=== PATIENT | female | born 1955 | race Caucasian/White ===

== ENCOUNTER 2019-06-03 22:46 | Inpatient (IN) | payer MEDICARE ==
[2019-06-03 23:48] LABS: #Basophils 0.1 thou/uL (0.0-0.2); #Lymphocytes 1.8 thou/uL (1.20-3.40); #Monocytes 0.9 thou/uL (0.11-0.59); #Neutrophils 8.8 thou/uL (1.40-6.50); %Basophils 0.6 % (0.0-1.0); %Eosinophils 0.2 % (0.0-10.0); %Lymphocytes 15.6 % (21.0-51.0); %Monocytes 7.5 % (0.0-10.0); Hemoglobin 14.4 g/dL (12.0-16.0); Mean Corpuscular HGB CONC 32.5 g/dL (32.0-36.0); Mean Corpuscular Hemoglobin 30.1 pg (27.0-31.0); Mean Corpuscular Volume 92.4 fL (78.0-98.0); Mean Platelet Volume 7.6 fL (7.4-10.4); Platelet Count 281 thou/uL (130-400); RBC Distribution Width 15.1 % (11.5-14.5); Red Blood Cell (RBC) Count 4.78 mill/uL (4.20-5.40); White Blood Cell (WBC) Count 11.6 thou/uL (4.8-10.8)
[2019-06-04 00:09] LABS: ALT (SGPT) 61 U/L (8-55); AST (SGOT) 43 U/L (5-34); Albumin 4.1 g/dL (3.4-4.8); Alkaline Phosphatase 62 U/L (40-110); Anion Gap 20 mmol/L (10-20); BUN (Urea Nitrogen) 16 mg/dL (9.8-20.1); Bilirubin, Total 1.1 mg/dL (0.2-1.2); Calc. Creatinine Clearance 0 mL/min (70-130); Calcium 10.3 mg/dL (7.8-10.44); Carbon Dioxide 25 mmol/L (23-31); Chloride 100 mmol/L (98-107); Estimated GFR-MDRD 57; Globulin 2.9 g/dL (2.4-3.5); Glucose 166 mg/dL (80-115); Potassium 4.7 mmol/L (3.5-5.1); Sodium 140 mmol/L (136-145)
[2019-06-04] MEDS ORDERED: Ondansetron PF 4 MG/2 ML Vial ONE (00:14)
--- NOTE | 2019-06-04 00:26 | RAD ---
RADIOGRAPH CHEST 1 VIEW: DATE: 06/03/2019 TIME: 11:50 PM HISTORY: 64-year-old female with dyspnea COMPARISON: 07/15/2009 FINDINGS: New finding of cardiomegaly. New finding of widening of mediastinum. New finding of focal small dense opacity at left upper lobe. New finding of prominent interstitial markings bilaterally, especially at bases. New finding of blunting of right lateral costophrenic angle. IMPRESSION: 1) evidence for mild congestive heart failure or mild fluid volume overload: Small right pleural effu lynnette and probable pulmonary interstitial edema. 2) focal dense opacity at left upper lobe: Pneumonia versus pulmonary neoplastic tumor mass. 3) widening of mediastinum.
[2019-06-04] MEDS ORDERED: Cefepime 2 GM VIAL ONE (00:35)
[2019-06-04 01:23] LABS: Bilirubin 1+ (Negative); Blood, Urine Negative (Negative); Clarity Clear (Clear); Glucose, Urine (Dipstick) Normal (Negative); Leukocyte Negative Leu/uL (Negative); Nitrite Negative (Negative); Protein, Urine (Dipstick) 50 mg/dL (Neg-Trace); Urobilinogen 3 mg/dL (Less than 2)
[2019-06-04 01:24] LABS: Bacteria/HPF None Seen HPF (None Seen); RBC/HPF None Seen HPF (0-3); WBC/HPF 0-3 HPF (0-3)
[2019-06-04] MEDS ORDERED: ADMIXTURE FEE IVPB SCH (01:30)
[2019-06-04] MEDS ORDERED: SODIUM CHLORIDE IVPB SCH (01:30)
[2019-06-04] MEDS ORDERED: GENTAMICIN SULFATE IVPB SCH (01:30)
[2019-06-04 02:56] LABS: Lactic Acid 2.6 mmol/L (0.5-2.2)
[2019-06-04 03:49] VITALS: BMI 36.4
[2019-06-04] MEDS ORDERED: Sodium Chloride 0.9% 1,000 ML IV SCH (07:30)
--- NOTE | 2019-06-04 08:45 | CT ---
CT chestwith contrast INDICATIONS:Follow-up chest x-ray. Question lung mass. COMPARISON:Chest film 06/03/2019 FINDINGS: There are small bilateral pleural effusions. Vascular congestion and diffuse interstitial prominence suggesting mild interstitial edema. 1 cm nodule posterior right upper lobe. 2.4 cm nodular density pleural-based left lower lobe. There a re other scattered more subtle nodular opacities. These may be areas of focal atelectasis or infiltrate however pulmonary masses are not excluded. There is diffuse pathologic mediastinal and hilar adenopathy. There is a left hilar mass measuring 3.1 x 3.5 cm. This mass extends along the medial aspect of the m ediastinum superiorly and extends into the left upper lobe to the peripheral pleural surface of the left upper lobe. Some of this density probably represents dense atelectasis associated with this pulm onary mass. Moderate-sized pericardial effusion. Upper abdomen is unremarkable. Soft tissues and chest wall appear unremarkable. Osseous structures are unremarkable. IMPRESSION: 1. Diffuse pathologic mediastinal and hilar adenopathy. 2. Left hilar mass. This mass extends along the superior left mediastinum into the left upper lobe pr ojecting to the pleural surface. There is associated dense lung atelectasis. 3. Moderate pericardial effusion 4. Small bilateral pleural effusions 5. Vascular and interstitial congestion. Scattered pulmonary nodular densities, the largest a pleural -based nodular mass left lower lobe.
[2019-06-04] MEDS ORDERED: Bisacodyl 10 MG SUPP PR PRN (09:30)
[2019-06-04] MEDS ORDERED: Ondansetron PF 4 MG/2 ML Vial IVP PRN (09:30)
[2019-06-04] MEDS ORDERED: Calcium Carbonate 500 MG ChewTAB PO PRN (09:30)
[2019-06-04] MEDS ORDERED: Guaifenesin DM 100-10/5 ML UDCUP PO PRN (09:30)
[2019-06-04] MEDS ORDERED: HYDROcodone/Acetaminophen 5/325 mg Tablet PO PRN (09:30)
[2019-06-04] MEDS ORDERED: Senokot S 8.6-50 MG TAB PO PRN (09:30)
[2019-06-04] MEDS: methylPREDNISolone Sod Succ 40 MG VIAL IVP SCH ×2 (11:28→17:12)
--- NOTE | 2019-06-04 11:41 | HP ---
REASON FOR ADMISSION: COPD exacerbation, cmvsr-tl-gmehevs respiratory failure with hypoxia. HISTORY OF PRESENTING ILLNESS: The patient gives history of having worsening shortness of breath and loss of appetite from the last few days now. Her voice also became hoarse and she was also passing very little urine, which was dark in color. She has had generalized abdominal pain. She has known history of recent diagnosis of xth-msnkh-cykc lung cancer, diagnosed 4 weeks back at [place]. This was diagnosed with CT-guided biopsy. There were plans for further radiation and chemo immunotherapy treatments scheduled in [facility]. The patient in between got hospitalized in [place] 2 weeks back as her saturations dropped down to 60%. She was discharged on the , and the patient came to stay with her son here in the area. She has difficulty expectorating sputum. She has cough. She has known history of COPD and is on home oxygen. She has been on home oxygen for the last 4 weeks after her cancer diagnosis. PAST MEDICAL AND SURGICAL HISTORY: 1. History of recent diagnosis of ljf-ysoon-fvat lung cancer [address]-guided biopsy. The patient has outpatient appointments to have radiation and chemo/immunotherapies in [facility]. 2. COPD from 2009. The patient states she has had a brain scan done with no metastasis seen. She is advised to get PET scan and bone scan, but the patient has to pay 20% upfront due to her insurance and has been unable to get the same for now. 3. She has not had any surgical history. 4. Depression. CURRENT MEDICATIONS: 1. Citalopram 40 mg p.o. daily. 2. Singulair 10 mg p.o. daily. 3. Albuterol nebulizer q.6 h. p.r.n. ALLERGIES: ALLERGIC TO PENICILLIN. PERSONAL HISTORY: Quit smoking 6 years back, prior to which has smoked a pack and a half per day for almost 20 years. Does not abuse alcohol or drugs. She stays with her daughter in [facility]. FAMILY HISTORY: Mother at the age of 78 years, she had diabetes. Father in his 80s from unknown cause. Had a brother who of throat cancer in his 50s, he was a smoker too. CODE STATUS: Do not attempt to resuscitate, this was discussed with the patient at bedside. Power of ballast inspector is her son. REVIEW OF SYSTEMS: CONSTITUTIONAL: Negative for weight loss or gain, ability to conduct usual activities. SKIN: Negative for rash, itching. EYES: Negative for double vision, pain. ENT/MOUTH: Negative for nose bleeding, neck stiffness, pain, tenderness. CARDIOVASCULAR: Negative for palpitations, dyspnea on exertion, orthopnea. RESPIRATORY: Negative for wheezing, hemoptysis, fever or night sweats. GASTROINTESTINAL: Negative for heartburn, nausea, vomiting, constipation, or diarrhea. GENITOURINARY: Negative for urgency, frequency, dysuria, nocturia. MUSCULOSKELETAL: Negative for pain, swelling. NEUROLOGIC/PSYCHIATRIC: Negative for anxiety. ALLERGY/IMMUNOLOGIC: Negative for skin rash, bleeding tendency. PHYSICAL EXAMINATION: GENERAL: The patient is a 64-year-old female, who is currently not in any acute distress. VITAL SIGNS: Blood pressure 166/86, pulse 102 per minute, respiratory rate 28 per minute, temperature 98.4 degrees Fahrenheit, and saturating 91% on 2L nasal cannula. NECK: Supple. No elevated JVD. HEENT: Eyes; extraocular muscles intact. Pupils reacting to light. Oral cavity, mucous membranes are dry. No exudates or congestion. RESPIRATORY: Air entry 1+ bilateral. There are wheezes plus bilateral, rhonchi plus bilateral. CARDIOVASCULAR SYSTEM: S1 and S2 heard. Regular rhythm. No murmur. ABDOMEN: Soft. Bowel sounds heard. No tenderness, rigidity, or guarding. EXTREMITIES: No peripheral edema or calf tenderness. VASCULAR SYSTEM: Peripheral pulses 1+ bilateral. No ischemic ulcerations or gangrene. CENTRAL NERVOUS SYSTEM: No gross focal deficits noted. The patient is alert, awake, and oriented well. PSYCHIATRIC SYSTEM: The patient's mood is euthymic. No hallucinations or delusions. LABORATORY DATA: CT chest with contrast done shows diffuse pathologic mediastinal and hilar adenopathy. There is a left hilar mass, which extends along the superior left mediastinum to the left upper lobe, projecting to the pleural space. There is associated dense lung atelectasis, moderate pericardial effusion, small bilateral pleural effusion, vascular and interstitial congestion. There is scattered pulmonary nodular densities, largest pleural-based nodular mass in the left lower lobe. BUN 16, creatinine 0.9, and serum glucose 166. Lactic acid 2.9. AST and ALT 43 and 61 and alkaline phosphatase 62. Troponin-I x1 negative. BNP 62. Albumin 4.1. White count of 11, hemoglobin and hematocrit 14 and 44, platelet count 281 , and MCV is 92 with 76% neutrophils. EKG done shows normal sinus rhythm at 100 beats per minute. It is low-voltage. CLINICAL IMPRESSION AND PLAN: The patient will be admitted to oncology/medical floor for kayzq-cu-qidbeyy chronic obstructive pulmonary disease exacerbation, ycoqv-kc-rbxdhrn respiratory failure with hypoxia. She has known history of rfw-grfcj-kqwz lung cancer, recently diagnosed, [address]-guided biopsy in [facility]. She is scheduled for PET scan and radiation treatments and follow up with oncologist in [facility]. The patient has mentioned that she would like to follow up with her oncologist and radiation oncologist in [facility]. If she changes her mind, we will obtain consultations here. She will be on Solu-Medrol 40 mg IV q.6 h, empiric doxycycline, DuoNeb q.6 h. She will continue her Celexa and Singulair along with Dulera inhaler. She will also be on Protonix 40 mg p.o. daily. The patient has expressed that she would like to be a do not attempt to resuscitate. This was discussed with the patient at bedside. Her jrxydpod-fq-ktj was at bedside as well. The patient was counseled that she needs to start her radiation and chemotherapy at the earliest to prevent this from further worsening, that is her cancer. Job ID: [id number] MTDD
[2019-06-04] MEDS ORDERED: Iopamidol 370 76% 100 ML VIAL ONE (12:07)
[2019-06-04] MEDS ORDERED: ALPRAZolam 0.5 MG TAB PO PRN (19:19)
[2019-06-04] MEDS: Mometasone/Formoterol 120 PUFF INHALER INH SCH (20:04)
[2019-06-04] MEDS: Citalopram 20 MG TAB PO SCH (20:43)
[2019-06-04] MEDS: Doxycycline 100 MG CAP PO SCH (20:43)
[2019-06-04] MEDS: Montelukast Sodium 10 mg Tablet PO SCH (20:44)
[2019-06-05] MEDS: methylPREDNISolone Sod Succ 40 MG VIAL IVP SCH ×4 (00:03→17:45)
[2019-06-05 04:31] LABS: #Lymphocytes 0.8 thou/uL (1.20-3.40); #Monocytes 0.2 thou/uL (0.11-0.59); %Eosinophils 0.1 % (0.0-10.0); %Lymphocytes 9.7 % (21.0-51.0); %Monocytes 2.8 % (0.0-10.0); %Neutrophils 87.4 % (42.0-75.0); Hemoglobin 13.4 g/dL (12.0-16.0); Mean Corpuscular HGB CONC 32.7 g/dL (32.0-36.0); Mean Corpuscular Hemoglobin 30.3 pg (27.0-31.0); Mean Corpuscular Volume 92.6 fL (78.0-98.0); Mean Platelet Volume 7.6 fL (7.4-10.4); Platelet Count 270 thou/uL (130-400); Red Blood Cell (RBC) Count 4.44 mill/uL (4.20-5.40); White Blood Cell (WBC) Count 8.1 thou/uL (4.8-10.8)
[2019-06-05 04:44] LABS: Anion Gap 14 mmol/L (10-20); BUN (Urea Nitrogen) 16 mg/dL (9.8-20.1); Calc. Creatinine Clearance 80 mL/min (70-130); Calcium 9.9 mg/dL (7.8-10.44); Carbon Dioxide 25 mmol/L (23-31); Chloride 103 mmol/L (98-107); Estimated GFR-MDRD 51; Glucose 202 mg/dL (80-115); Potassium 4.7 mmol/L (3.5-5.1); Sodium 137 mmol/L (136-145)
[2019-06-05] MEDS ORDERED: Melatonin 3 MG TAB PO PRN (07:27)
[2019-06-05] MEDS ORDERED: Simethicone Chewable 80 MG TAB PO PRN (07:27)
[2019-06-05] MEDS: Mometasone/Formoterol 120 PUFF INHALER INH SCH ×2 (08:00→21:45)
[2019-06-05] MEDS: Doxycycline 100 MG CAP PO SCH ×2 (08:36→20:20)
[2019-06-05] MEDS: Enoxaparin Sodium 40 MG/0.4 ML SYRINGE SC SCH (08:37)
--- NOTE | 2019-06-05 09:49 | CON ---
DATE OF CONSULTATION: 06/05/2019 REASON FOR CONSULTATION: Ms. Nunez is a 64-year-old female, admitted for shortness of breath and lung cancer that was diagnosed in [place]. I was asked to see her to discuss her treatment options. It appears that she has a stage IV, T1 N3 M1 lesion. HISTORY OF PRESENT ILLNESS: Ms. Nunez states that she was diagnosed in early April with lung cancer while in [place]. Apparently, she went to the doctor because she was not feeling well. There was a concern that she had pneumonia. She had a CT scan, which suggested a lung mass and adenopathy apparently. A CT-guided biopsy returned the diagnosis. The patient reports it was a bah-kpzam-hqgo lung cancer, but I do not have any source documents for that nor could she provide other details. She apparently did meet with a medical oncologist and radiation oncologist in [place]. They had recommended a PET scan, but the patient could not afford the rir-sf-iwtygf expense for the PET scan as she only has Medicare. She several weeks ago was hospitalized in [place], while on a trip, when she had shortness of breath and her oxygen saturation dropped. She was stabilized and has been here for the past 2 weeks. She was not feeling well, not eating, and was becoming dehydrated and she was making little urine, and therefore, her uiuvmzpi-pp-iwy brought her to the emergency room here at [facility] yesterday, where she was admitted. She did undergo CT scan of the chest, which showed mediastinal adenopathy, both ipsilateral and contralateral. There was a 2.4 cm mass in the left lower lobe, that was concerning. There was hilar adenopathy on the left side. There was a pleural effusion and moderate pericardial effusion. She also had a nodule in the right upper lobe of the lung, that was concerning. She did undergo an echocardiogram and the results of this are currently pending. Today, she reports that her breathing has improved some since being here in the hospital. Over the past several weeks, she has had progressive shortness of breath and orthopnea. She had dyspnea on exertion across the room. She has been on oxygen ever since April in her hospitalization. She does admit to occasional chest pain, but denies any other areas of pain. She has had hoarseness for the past 2 weeks. She denies any weight loss. She has no headaches or vomiting. She did have some nausea, but this has improved. She does report that she had some type of scan of the head while in [place], that was negative, but again I do not have the source document for that. I have been asked to see her to discuss possible treatment options. PAST MEDICAL HISTORY: 1. Lung cancer as mentioned above. 2. COPD since 2009. 3. History of depression. 4. She denies other medical or surgical problems. MEDICATIONS: 1. Xanax p.r.n. 2. Tums p.r.n. 3. Celexa. 4. Vibramycin. 5. Lovenox. 6. [place] p.r.n. 7. Solu-Medrol. 8. Mometasone inhaler. 9. Singulair. 10. Zofran. 11. Protonix. ALLERGIES: PENICILLIN, WHICH CAUSES SWELLING. SOCIAL HISTORY: She has not smoked cigarettes for 6 years. Prior to that, she smoked 1.5 packs per day for more than 20 years. She has no alcohol or drug use. She is a , who was living in [place]. She is presently staying with her son and agakixbt-to-ziq. FAMILY HISTORY: Her mother at age 78 from complications of diabetes and Alzheimer's. Her father at age 80 from possible alcohol-related complications. She had a brother in his 50s with throat cancer. There is no other family history of cancer or particularly of lung cancer. REVIEW OF SYSTEMS: A 12-system review of systems was performed and was otherwise negative. PHYSICAL EXAMINATION: VITAL SIGNS: Height 5 feet 5 inches and weight 219 pounds. Blood pressure is 126/77, pulse is 90, respirations are 20, temperature is 97.5, O2 saturation is 90% on 2.5L O2. GENERAL: She is alert and oriented and in no apparent distress. She is well-developed and well-nourished. Karnofsky performance status is 70%. EYES: Pupils equal, round, and reactive to light. Extraocular movements are intact. ENT: Oral cavity and oropharynx normal without lesion or erythema. Palate elevates symmetrically. Gingiva is intact. NECK: Supple without cervical or supraclavicular adenopathy. No thyromegaly. Larynx midline. There is no jugular venous distention. LUNGS: Breathing nonlabored. Clear to auscultation. There is dullness to percussion in the right lower lobe. HEART: Regular rate and rhythm without murmur. No lower extremity edema. BACK: No tenderness on fist percussion of her spine. LYMPHATIC: No axillary or inguinal adenopathy. ABDOMEN: Obese, soft, nontender, and nondistended without mass or hepatosplenomegaly. Liver percusses to normal size. SKIN: Without rash or purpura. NEUROLOGIC: Cranial nerves 2 through 12 grossly intact. Motor strength is 5/5 in both upper and lower extremities in all muscle groups tested. Reflexes are normal and symmetrical. Gait was not tested. LABORATORY DATA: CBC revealed a white blood cell count of 8100 with a hemoglobin of 13.4, hematocrit 41.1, and platelet count of 270,000. Chemistry group showed a glucose of 202. AST was 43 and ALT was 61. Albumin was 4.1. Electrolytes were otherwise normal. Creatinine was 1.08. RADIOLOGIC DATA: CT scan of the chest was personally reviewed. Again, this shows a 2.4 cm left lower lobe lung mass, which is likely the primary. She has hilar adenopathy as well as ipsilateral and contralateral mediastinal adenopathy. She has some narrowing of the left upper lobe bronchus with perhaps some segmental atelectasis. She has a left pleural effusion. She has a moderate pericardial effusion. She has a nodule in the right upper lobe of the lung, which is suspicious. ASSESSMENT: Ms. Nunez is a 64-year-old female with a likely stage IV, T1 N3 M1 lung cancer. Likely this is a bfc-ebxuh-dwgp lung cancer. Much of her workup previously has been done in [place] and we do not have the results of that including the pathology results. PLAN: I had a discussion today with Ms. Nunez and her mvxwekuj-on-snl regarding her diagnosis, prognosis, prognostic factors, and treatment options. I explained that if indeed this is stage IV disease she likely does not have curable disease, but can potentially have treatable disease. She is desirous of having her treatment done here and plans to stay with her family. We do need to obtain the old records from [place], particularly from her CT scans. It appears that the pericardial and pleural effusions are new. This would make her have stage IV disease. The first concern is of the pericardial effusion. She has had an echocardiogram. The effusion does appear fairly large on CT scan. I think she will need to be evaluated by Cardiothoracic Surgery to see if she needs a pericardial window. We can then determine after that decision is made on how best to treat her. She is not an operable candidate. Some of her treatment decisions will depend on the exact pathology. Options could include some palliative radiation therapy upfront versus combined concurrent chemotherapy and radiation. The logistics of radiation as well as the benefits and risk of treatment were discussed. The simulation and daily treatment procedure were discussed. Side effects would include but not be limited to skin reaction, fatigue, lower blood counts, difficulty or pain with swallowing, weight loss, possible need for PEG tube for nutritional support, small risk of radiation pneumonitis, possible long-term difficulties with her breathing, possible stricture of the esophagus, and small risk of damage to any other structures when she receives radiation therapy. Time was taken to answer all the questions regarding her treatment options. She is going to have a medical oncology consult also. We will await their input also. We will then make a multimodality decision in terms of how best to proceed with her treatment. Thank you for asking me to see this pleasant lady. Job ID: [id number]
--- NOTE | 2019-06-05 10:25 | PDOC.HOSPP ---
- Subjective Encounter Date: 06/05/19 Encounter Time: 07:00 Subjective: Pt seen for followup re: COPD exacerbation. c/o abdominal bloating. No fevers. - Objective Vital Signs & Weight: Vital Signs (12 hours) Temp Pulse Resp BP Pulse Ox 06/05/19 08:00 98.2 F 96 20 130/79 91 L 06/05/19 07:59 81 16 06/05/19 03:41 90 L 06/05/19 01:17 81 18 90 L 06/05/19 00:00 97.5 F L 90 20 126/77 90 L Weight Weight 219 lb I&O: 06/04/19 06/05/19 06/06/19 06:59 06:59 06:59 Intake Total 1070 120 Balance 1070 120 Result Diagrams: 06/05/19 04:14 06/05/19 04:14 Additional Labs: Labs and MARs reviewed by me. Hospitalist ROS - Review of Systems Respiratory: reports: SOB with excertion. denies: cough, dry, shortness of breath, hemoptysis, pleuritic pain, sputum, wheezing Cardiovascular: denies: chest pain, palpitations, orthopnea, paroxysmal noc. dyspnea, edema, light headedness Gastrointestinal: reports: other (bloating) - Medication Medications: Active Medications Generic Name Dose Route Start Last Admin Trade Name Freq PRN Reason Stop Dose Admin Albuterol/Ipratropium 3 ml 06/04/19 13:00 06/05/19 07:59 Duoneb NEB 3 ml [id number] KENNETH Administration Alprazolam 1 mg 06/04/19 19:19 06/04/19 20:44 Xanax PO 1 mg HSPRN PRN Administration Anxiety Citalopram Hydrobromide 40 mg 06/04/19 21:00 06/04/19 20:43 Celexa PO 40 mg HS KENNETH Administration Doxycycline Hyclate 100 mg 06/04/19 21:00 06/05/19 08:36 Vibramycin PO 100 mg BID KENNETH Administration Enoxaparin Sodium 40 mg 06/05/19 09:00 06/05/19 08:37 Lovenox SC 40 mg 0900 KENNETH Administration Methylprednisolone Sodium Succinate 40 mg 06/04/19 12:00 06/05/19 06:21 Solu-Medrol IVP 40 mg Q6HR KENNETH Administration Mometasone Furoate/Formoterol Fumar 2 puff 06/04/19 18:30 06/05/19 08:00 Dulera 200 Mcg/5 Mcg Inhaler INH 2 puff BID-RT KENNETH Administration Montelukast Sodium 10 mg 06/04/19 21:00 06/04/19 20:44 Singulair PO 10 mg HS KENNETH Administration Ondansetron HCl 4 mg 06/04/19 09:30 06/04/19 10:08 Zofran IVP 4 mg Q6H PRN Administration Nausea/Vomiting Pantoprazole Sodium 40 mg 06/05/19 09:00 06/05/19 08:36 Protonix PO 40 mg DAILY KENNETH Administration Sodium Chloride 10 ml 06/04/19 21:00 06/05/19 08:37 Flush - Normal Saline IVF 10 ml Q12HR KENNETH Administration Sodium Chloride 10 ml 06/04/19 09:36 06/05/19 06:21 Flush - Normal Saline IVF 10 ml PRN PRN Administration Saline Flush - Exam General - other findings: Obese Eye: PERRL, anicteric sclera ENT: no oropharyngeal lesions, moist mucosa Neck: supple, no thyromegaly Heart: RRR, no rubs Respiratory: CTAB, no ronchi Gastrointestinal: soft, non-tender, non-distended, normal bowel sounds Extremities: no cyanosis, no clubbing Psychiatric: normal affect, normal behavior Hosp A/P (1) COPD exacerbation Code(s): J44.1 - CHRONIC OBSTRUCTIVE PULMONARY DISEASE W (ACUTE) EXACERBATION Status: Acute (2) Pericardial effusion Code(s): I31.3 - PERICARDIAL EFFUSION (NONINFLAMMATORY) Status: Acute (3) Metastatic lung cancer (metastasis from lung to other site) Code(s): C34.90 - MALIGNANT NEOPLASM OF UNSP PART OF UNSP BRONCHUS OR LUNG Status: Chronic (4) Depression Code(s): F32.9 - MAJOR DEPRESSIVE DISORDER, SINGLE EPISODE, UNSPECIFIED Status : Chronic - Plan plan discussed w/ family, continue antibiotics, respiratory therapy, out of bed/ ambulate Continue oxygen, solu-medrol and Duonebs. Continue doxycycline. Consult CV surgery re; pericardial effusion. Pt seen by rad onc, med onc consult pending. PRN Simethicone for abdo bloating. PRN Ativan at HS for anxiety. Depression mild, stable.
--- NOTE | 2019-06-05 11:38 | CON ---
DATE OF CONSULTATION: 06/05/2019 REQUESTING PHYSICIAN: Dr. Festus Andrews. CHIEF COMPLAINT: Shortness of breath. HISTORY OF PRESENT ILLNESS: The patient is a 64-year-old former smoker with significant COPD. She recently moved here from [place] where she reportedly was diagnosed with lung cancer about a month ago. Prior to coming here, she accompanied family to [place] to visit a grandchild at [facility] and was admitted there with shortness of breath. Her hospitalization was brief, but the family describes being told that an echocardiogram showed a pericardial effusion that was small enough that it did not need to be addressed. She yesterday developed wheezing and shortness of breath, bad enough to come to the hospital again and although her breathing today on DuoNebs and steroids is significantly improved. CT scanning and echocardiography demonstrated a fairly large pericardial effusion. PAST MEDICAL HISTORY: Significant for COPD. She has been on oxygen since her CT-guided biopsy about a month ago. She has an anxiety disorder. HOME MEDICATIONS: 1. Citalopram 40 mg a day. 2. Singulair 10 mg a day. 3. P.r.n. albuterol. ALLERGIES: TO PENICILLIN. SOCIAL HISTORY: She had about a 30 pack-year history of smoking when she quit about 6 years ago. FAMILY HISTORY: Significant for diabetes in her mother and head and neck cancer in a brother. REVIEW OF SYSTEMS: Notable for her wheezing and her shortness of breath. Also been notable for some decreased appetite and some nausea. PHYSICAL EXAMINATION: GENERAL: She appears older than her stated age. VITAL SIGNS: Her heart rate is in the 80s to 95 range. Blood pressures been in the 125 to 135 over 70 to 80 range with her most recent blood pressure being 130/79, O2 saturations are 91% on 2 L nasal cannula. Height is 5 feet 5 inches, weight is 219 pounds. She has no obvious JVD. HEENT: She has no facial or upper torso plethora. LUNGS: Left upper lung field wheezes consistently on anterior auscultation, basilar wheezes bilaterally on posterior auscultation. HEART: She has a regular rate and rhythm without any obvious muffling. EXTREMITIES: She has some dependent rubor in her feet with some atrophic skin changes. She has no palpable pulses in her feet. She has trace edema. LABORATORY DATA: On laboratory exam, white count is 11.6, hemoglobin 14.4, platelets 281,000. Electrolytes were normal. Glucose 166, BUN 16, creatinine 0.98, calcium is 10.3, bilirubin 1.1. Alkaline phosphatase 62, AST 43, and ALT 61. Albumin is 4.1. Her chest x-ray shows an enlarged cardiac silhouette and widened mediastinum with a somewhat globular configuration of very prominent pulmonary markings. There is opacity in the left upper lung field which corresponds to a mass or consolidated area on the CT scan in the anterior left upper lobe. She has prominent hilar AP window and subcarinal lymphadenopathy. She has a fairly large pericardial effusion that measures around 3 to 3.5 cm along the diaphragmatic surface and posteriorly with the patient lying supine on the CT scanner gantry. Her echocardiogram also shows a fairly large pericardial effusion. I see no obvious RV or RA collapse, but on the subcostal window that show the liver, the intrahepatic veins seem to be dilated and there is no collapse of them with inspiration. IMPRESSION AND RECOMMENDATIONS: While her shortness of breath may merely represent a COPD exacerbation, she certainly has a large pericardial effusion with subtle echocardiographic signs of impending tamponade. I would recommend a pericardial window as a proactive measure rather than waiting until she is clearly symptomatic from it as she is understandably anxious about this, particularly with respect to the potential for exacerbating her bronchospasm and needing to be ventilated perioperatively, but she in general is agreeable to proceed, but would prefer to not do this today in order that out of town family can make it here. Job ID: [id number]
--- NOTE | 2019-06-05 17:30 | CON ---
DATE OF CONSULTATION: REASON FOR CONSULTATION: Lung cancer. HISTORY OF PRESENT ILLNESS: A 64-year-old female with COPD on home oxygen and new diagnosis of lung cancer, admitted to the hospital for worsening shortness of breath. The patient states that she was diagnosed with COPD a few years ago and her shortness of breath has been worsening for the past few months until approximately one month ago, she was admitted and was started on oxygen and has been on that ever since. States that in [place], [place] in April, she was diagnosed with a lung cancer in the left hilum and had a CT-guided biopsy that showed non-small cell lung cancer. She does not know what type of non-small cell or what stage she is. She says she was told she was either stage 3 or 4, but needed a PET scan, which she could not afford the 20% co-pay on. She was scheduled for a bone scan, but it was cancelled due to an another hospital admission in [place], [place] while visiting her granddaughter. In addition to her shortness of breath, she complains of mildly productive cough, but no hemoptysis. Denies any fevers, sweats, or weight loss. She denies any significant pain. At this admission to [facility], she has had an echocardiogram that shows a large pericardial effusion and she has been evaluated by Dr. Douglas that shows subtle echocardiographic signs of impending tamponade and has recommended a pericardial window, which is being planned for tomorrow. On review of her CT scans, she does have a primary left lower lobe lesion with hilar and mediastinal lymphadenopathy bilaterally and a right upper lobe nodule, which is concerning for metastases. She also has a pleural effusion with her pericardial effusion, these are likely related to the cancer, which would make her stage 4. REVIEW OF SYSTEMS: Ten-point review of systems negative except as per HPI. PAST MEDICAL HISTORY: Lung cancer, COPD, depression, and anxiety. HOME MEDICATIONS: Reviewed. ALLERGIES: PENICILLIN. SOCIAL HISTORY: One and half packs per day x20 years. Quit approximately six years ago. No alcohol. FAMILY HISTORY: Throat cancer in her brother. PHYSICAL EXAMINATION: VITAL SIGNS: Temperature 98.2, pulse 116, saturating 91% on 2.5 L by nasal cannula, and blood pressure 130/79. GENERAL APPEARANCE: The patient is lying in bed, in no acute distress. HEENT: Normocephalic and atraumatic. NECK: Supple without lymphadenopathy. LUNGS: Respirations are nonlabored and clear. CARDIAC: S1 and S2 are not diminished. ABDOMEN: Obese, soft, nondistended, and nontender. NEUROLOGIC: Cranial nerves 2 through 12 grossly intact. LABORATORY DATA: White blood cells 8.1, hemoglobin 13.4, and platelets 270. Sodium 137, potassium 4.7, BUN 16, creatinine 1.08, and glucose 202. IMAGING DATA: CT of the chest shows 2.4 cm left lower lobe lung mass, hilar lymphadenopathy, and bilateral mediastinal lymphadenopathy. The right upper lobe nodule, left pleural effusion, and [id number] pericardial effusion. ASSESSMENT AND PLAN: A 64-year-old female with chronic obstructive pulmonary disease and new diagnosis of non-small cell lung cancer, the patient is either stage 3 or 4, although likely is stage 4, given her right upper lobe nodule, pleural effusion, and pericardial effusion, which are both likely related to her primary cancer. She will be planned for a pericardial window tomorrow and I have asked Dr. Douglas to send pericardial fluid for cytology, which would confirm stage 4 disease. The patient cannot afford to have a PET scan and I do not know what imaging has been done other than CT of the chest, but she does believe she has had an MRI-Brain. We will await records from [facility] for both imaging and pathology and schedule her for a bone scan here. If she has confirmed stage 4 disease, she may benefit from immune therapy plus or minus chemotherapy, targeted therapy depending on mutations and potential radiation. All of these options were discussed with her and final plan will be dependent on her continued workup. Thank you for this consult. Job ID: [id number] [facility]
[2019-06-05] MEDS: Citalopram 20 MG TAB PO SCH (20:20)
[2019-06-05] MEDS: Montelukast Sodium 10 mg Tablet PO SCH (20:20)
[2019-06-05] MEDS: Lorazepam 0.5 MG TAB PO PRN (21:12)
[2019-06-06] MEDS: methylPREDNISolone Sod Succ 40 MG VIAL IVP SCH ×5 (00:13→23:39)
[2019-06-06] MEDS ORDERED: Lorazepam 2 MG/ML VIAL SLOW IVP SCH (06:30)
[2019-06-06] MEDS ORDERED: Fentanyl 100 MCG/2 ML VIAL ONE ×2 (07:59→09:45)
[2019-06-06] MEDS: Mometasone/Formoterol 120 PUFF INHALER INH SCH ×2 (08:20→19:02)
[2019-06-06] MEDS: Enoxaparin Sodium 40 MG/0.4 ML SYRINGE SC SCH (09:00)
[2019-06-06] MEDS: Doxycycline 100 MG CAP PO SCH ×2 (09:00→20:38)
[2019-06-06] MEDS ORDERED: Albuterol Sulfate 1.25 MG/3 ML NEB ONE (10:00)
--- NOTE | 2019-06-06 10:23 | RAD ---
Portable chest: HISTORY: Placement of pericardial window. Follow-up. COMPARISON: 06/03/2019 FINDINGS:Cardiomegaly. Catheter overlies the left heart border. Mild vascular engorgement. Mediastina l prominence consistent adenopathy previously noted on CT. Small effusions. Opacity in the left upper lung again noted. IMPRESSION:No acute interval change.
[2019-06-06 10:39] LABS: Fluid, Protein 5.5 g/dL (Not Available)
[2019-06-06] MEDS ORDERED: Ondansetron PF 4 MG/2 ML Vial ONE (10:47)
[2019-06-06] MEDS ORDERED: Lidocaine 1% PF 5 ML VIAL ONE (10:47)
[2019-06-06] MEDS ORDERED: PROPOFOL 200 MG/20 ML VIAL ONE (10:47)
[2019-06-06] MEDS ORDERED: Rocuronium Bromide 10 MG/ML (10ML VIAL) ONE (10:47)
[2019-06-06] MEDS ORDERED: Glycopyrrolate 0.2 MG/ML 5 ML SYRINGE ONE (10:47)
[2019-06-06] MEDS ORDERED: Morphine 2 MG/ML SYRINGE SLOW IVP PRN (11:27)
[2019-06-06] MEDS ORDERED: HYDROcodone/Acetaminophen 5/325 mg Tablet PO PRN (11:40)
[2019-06-06] MEDS: Ketorolac Tromethamine 30 MG/ML VIAL IVP SCH ×3 (11:58→23:39)
[2019-06-06 12:02] LABS: RBC Count-Automated (BF) Greater than 890000 /cumm; WBC/Nucleated-Auto (BF) 1849 uL
[2019-06-06 12:03] LABS: Body Fluid Source Pericardial Fluid; Clarity Hazy (Clear)
[2019-06-06 12:05] LABS: BF Color Red; Tube # EDTA
[2019-06-06 12:30] LABS: BF Segmented Neutrophils 7 %; Cell Count Non Hematic 70 %; Lymphocytes 23 %
--- NOTE | 2019-06-06 13:56 | PDOC.HOSPP ---
- Subjective Encounter Date: 06/06/19 Encounter Time: 13:54 Subjective: Pt seen for followup re: COPD exacerbation. feels better. - Objective Vital Signs & Weight: Vital Signs (12 hours) Temp Pulse Resp BP Pulse Ox 06/06/19 12:10 82 16 06/06/19 12:05 97.6 F 82 18 106/52 L 97 06/06/19 08:00 98.3 F 83 16 133/85 94 L 06/06/19 07:43 94 L 06/06/19 04:00 92 L Weight Weight 219 lb I&O: 06/05/19 06/06/19 06/07/19 06:59 06:59 06:59 Intake Total 1070 1193 Balance 1070 1193 Result Diagrams: 06/05/19 04:14 06/05/19 04:14 Additional Labs: Labs and MARs reviewed by me Hospitalist ROS - Review of Systems Respiratory: reports: SOB with excertion Cardiovascular: denies: chest pain, palpitations, orthopnea, paroxysmal noc. dyspnea, edema, light headedness Gastrointestinal: denies: nausea, vomiting, abdominal pain, diarrhea, constipation, melena, hematochezia - Medication Medications: Active Medications Generic Name Dose Route Start Last Admin Trade Name Freq PRN Reason Stop Dose Admin Albuterol/Ipratropium 3 ml 06/04/19 13:00 06/06/19 12:10 Duoneb NEB 3 ml [id number] KENNETH Administration Citalopram Hydrobromide 40 mg 06/04/19 21:00 06/05/19 20:20 Celexa PO 40 mg HS KENNETH Administration Doxycycline Hyclate 100 mg 06/04/19 21:00 06/06/19 09:00 Vibramycin PO Not Given BID KENNETH Enoxaparin Sodium 40 mg 06/05/19 09:00 06/06/19 09:00 Lovenox SC Not Given 0900 KENNETH Ketorolac Tromethamine 15 mg 06/06/19 12:00 06/06/19 11:58 Toradol IVP 06/07/19 06:01 15 mg Q6HR KENNETH Administration Lorazepam 0.5 mg 06/05/19 07:34 06/05/19 21:12 Ativan PO 0.5 mg HS PRN Administration Anxiety Methylprednisolone Sodium Succinate 40 mg 06/04/19 12:00 06/06/19 11:47 Solu-Medrol IVP 40 mg Q6HR KENNETH Administration Mometasone Furoate/Formoterol Fumar 2 puff 06/04/19 18:30 06/06/19 08:20 Dulera 200 Mcg/5 Mcg Inhaler INH Not Given BID-RT KENNETH Montelukast Sodium 10 mg 06/04/19 21:00 06/05/19 20:20 Singulair PO 10 mg HS KENNETH Administration Ondansetron HCl 4 mg 06/04/19 09:30 06/04/19 10:08 Zofran IVP 4 mg Q6H PRN Administration Nausea/Vomiting Pantoprazole Sodium 40 mg 06/05/19 09:00 06/06/19 09:00 Protonix PO Not Given DAILY KENNETH Sodium Chloride 10 ml 06/04/19 21:00 06/06/19 09:00 Flush - Normal Saline IVF Not Given Q12HR KENNETH Sodium Chloride 10 ml 06/04/19 09:36 06/06/19 06:41 Flush - Normal Saline IVF 10 ml PRN PRN Administration Saline Flush - Exam General - other findings: Obesity Eye: anicteric sclera ENT: moist mucosa Neck: supple, no JVD Heart: RRR Respiratory: CTAB Gastrointestinal: soft, non-tender Extremities: no clubbing Skin: no rashes Psychiatric: normal affect, normal behavior Hosp A/P (1) COPD exacerbation Code(s): J44.1 - CHRONIC OBSTRUCTIVE PULMONARY DISEASE W (ACUTE) EXACERBATION Status: Acute (2) Pericardial effusion Code(s): I31.3 - PERICARDIAL EFFUSION (NONINFLAMMATORY) Status: Acute (3) Metastatic lung cancer (metastasis from lung to other site) Code(s): C34.90 - MALIGNANT NEOPLASM OF UNSP PART OF UNSP BRONCHUS OR LUNG Status: Chronic (4) Depression Code(s): F32.9 - MAJOR DEPRESSIVE DISORDER, SINGLE EPISODE, UNSPECIFIED Status : Chronic - Plan continue antibiotics, out of bed/ambulate Continue doxycycline, oxygen, solu-medrol and Duonebs. s/p pericardial window for pericardial effusion. Await cytology report. PRN Ativan at HS for anxiety. Depression mild, stable. Discussed with pt re: code status. Pt would like to be full code.
--- NOTE | 2019-06-06 15:34 | OP ---
DATE OF PROCEDURE: 06/06/2019 PROCEDURE PERFORMED: Subxiphoid pericardial window. PREOPERATIVE DIAGNOSES: Pericardial effusion; lung cancer. POSTOPERATIVE DIAGNOSES: Pericardial effusion; lung cancer. ANESTHESIA: General endotracheal anesthesia. INDICATIONS: The patient is a 64-year-old woman with COPD, who has recently been diagnosed with a left-sided lung cancer. She presented with an exacerbation of wheezing and shortness of breath, has improved with treatment, but in the course of her evaluation, she was found to have a rather large pericardial effusion with some distention of intrahepatic veins, but no hemodynamic compromise. She is now taken to the operating room for pericardial drainage. FINDINGS: About 750 mL of dark red bloody fluid drained from the pericardium within the reach of the wound. There were no palpable abnormalities of the pericardium or epicardium. There were no significant changes in the patient's hemodynamics. SPECIMENS: Pericardium for pathology. Pericardial fluid for laboratory studies, smears, and cultures and for cytology. NARRATIVE REPORT: After informed consent was obtained, the patient was taken to the operating room, placed in supine position on the operating table. The patient tolerated the induction of general endotracheal anesthesia. Her torso was prepped and draped in sterile fashion. A vertical midline incision was made in the epigastrium with a scalpel. It was continued through the subcutaneous tissue and linea alba with the electrocautery. The retrosternal space was developed bluntly and blunt dissection was used to dissect the fat off the anterior surface of the pericardium near the diaphragmatic surface. A scalpel was used to sharply incise the pericardium at that level and it was drained. Aliquots of pericardial fluid were collected for laboratory, microbiologic, and cytologic studies. The wound was palpated. No gross abnormalities could be appreciated on the pericardium or epicardium within reach of the wound. A patch of pericardium was excised sharply for a pathologic examination. A 28-Belarusian bulb suction drain was brought out through a separate incision and placed into the pericardium. It was secured to the skin with suture. The linea alba was then reapproximated with running #1 PDS. Subcutaneous tissue was irrigated and reapproximated in multiple layers of Vicryl. The skin was closed with a running Vicryl subcuticular suture and Steri-Strips. The wound was dressed. The patient was awakened and extubated in the operating room and taken to the recovery area in stable condition. Job ID: [id number]
[2019-06-06] MEDS: Montelukast Sodium 10 mg Tablet PO SCH (20:38)
[2019-06-06] MEDS: Citalopram 20 MG TAB PO SCH (20:38)
[2019-06-06] MEDS: Lorazepam 0.5 MG TAB PO PRN (20:40)
[2019-06-07] MEDS: methylPREDNISolone Sod Succ 40 MG VIAL IVP SCH ×4 (05:59→23:58)
[2019-06-07] MEDS: Ketorolac Tromethamine 30 MG/ML VIAL IVP SCH (05:59)
[2019-06-07] MEDS: Doxycycline 100 MG CAP PO SCH ×2 (09:12→20:03)
[2019-06-07] MEDS: Enoxaparin Sodium 40 MG/0.4 ML SYRINGE SC SCH (09:13)
[2019-06-07] MEDS: Mometasone/Formoterol 120 PUFF INHALER INH SCH ×2 (09:56→20:17)
[2019-06-07] MEDS ORDERED: Lorazepam 2 MG/ML VIAL SLOW IVP SCH (12:15)
--- NOTE | 2019-06-07 14:37 | NM ---
WHOLE BODY BONE SCAN: HISTORY: Lung cancer RADIOPHARMACEUTICAL: 27 mCi technetium 99m-MDP injected intravenously COMPARISON: None CORRELATION: CT chest of 06/04/2019 FINDINGS: There scattered degenerative activity in the appendicular skeleton. No other abnormal areas of tracer localization are seen in the skeleton to suggest metastatic disease . Tracer excretion through the kidneys is within normal limits. IMPRESSION: No scintigraphic evidence of osseous metastatic disease.
--- NOTE | 2019-06-07 15:04 | PDOC.HOSPP ---
- Subjective Encounter Date: 06/07/19 Encounter Time: 07:00 Subjective: Pt seen for followup re: COPD exacerbation. Feels better. Awaiting bone scan. - Objective Vital Signs & Weight: Vital Signs (12 hours) Temp Pulse Resp BP BP Pulse Ox 06/07/19 14:52 77 16 93 L 06/07/19 12:00 98.5 F 78 20 110/59 L 94 L 06/07/19 09:41 79 16 94 L 06/07/19 08:00 98.6 F 82 20 107/51 L 95 06/07/19 03:34 98.3 F 78 16 105/62 93 L Weight Weight 219 lb I&O: 06/06/19 06/07/19 06/08/19 06:59 06:59 06:59 Intake Total 1193 1200 Output Total 310 Balance 1193 890 Result Diagrams: 06/05/19 04:14 06/05/19 04:14 Additional Labs: labs and MARs reviewed by me Hospitalist ROS - Review of Systems Cardiovascular: denies: chest pain, palpitations, orthopnea, paroxysmal noc. dyspnea, edema, light headedness Gastrointestinal: denies: nausea, vomiting, abdominal pain, diarrhea, constipation, melena, hematochezia - Medication Medications: Active Medications Generic Name Dose Route Start Last Admin Trade Name Freq PRN Reason Stop Dose Admin Albuterol/Ipratropium 3 ml 06/04/19 13:00 06/07/19 14:52 Duoneb NEB 3 ml [id number] KENNETH Administration Citalopram Hydrobromide 40 mg 06/04/19 21:00 06/06/19 20:38 Celexa PO 40 mg HS KENNETH Administration Doxycycline Hyclate 100 mg 06/04/19 21:00 06/07/19 09:12 Vibramycin PO 100 mg BID KENNETH Administration Enoxaparin Sodium 40 mg 06/05/19 09:00 06/07/19 09:13 Lovenox SC 40 mg 0900 KENNETH Administration Lorazepam 0.5 mg 06/05/19 07:34 06/06/19 20:40 Ativan PO 0.5 mg HS PRN Administration Anxiety Lorazepam 0.5 mg 06/07/19 12:15 06/07/19 13:00 Ativan SLOW IVP 0.5 mg WILLCALL KENNETH Administration Methylprednisolone Sodium Succinate 40 mg 06/04/19 12:00 06/07/19 13:00 Solu-Medrol IVP 40 mg Q6HR KENNETH Administration Mometasone Furoate/Formoterol Fumar 2 puff 06/04/19 18:30 06/07/19 09:56 Dulera 200 Mcg/5 Mcg Inhaler INH Not Given BID-RT KENNETH Montelukast Sodium 10 mg 06/04/19 21:00 06/06/19 20:38 Singulair PO 10 mg HS KENNETH Administration Ondansetron HCl 4 mg 06/04/19 09:30 06/04/19 10:08 Zofran IVP 4 mg Q6H PRN Administration Nausea/Vomiting Pantoprazole Sodium 40 mg 06/05/19 09:00 06/07/19 09:12 Protonix PO 40 mg DAILY KENNETH Administration Sodium Chloride 10 ml 06/04/19 21:00 06/07/19 09:13 Flush - Normal Saline IVF 10 ml Q12HR KENNETH Administration Sodium Chloride 10 ml 06/04/19 09:36 06/06/19 06:41 Flush - Normal Saline IVF 10 ml PRN PRN Administration Saline Flush - Exam General - other findings: Obese Eye: anicteric sclera ENT: moist mucosa Neck: supple Heart: RRR Respiratory: CTAB Gastrointestinal: soft, non-tender Extremities: no clubbing Psychiatric: normal affect, normal behavior Hosp A/P (1) COPD exacerbation Code(s): J44.1 - CHRONIC OBSTRUCTIVE PULMONARY DISEASE W (ACUTE) EXACERBATION Status: Acute (2) Pericardial effusion Code(s): I31.3 - PERICARDIAL EFFUSION (NONINFLAMMATORY) Status: Acute (3) Metastatic lung cancer (metastasis from lung to other site) Code(s): C34.90 - MALIGNANT NEOPLASM OF UNSP PART OF UNSP BRONCHUS OR LUNG Status: Chronic (4) Depression Code(s): F32.9 - MAJOR DEPRESSIVE DISORDER, SINGLE EPISODE, UNSPECIFIED Status : Chronic - Plan respiratory therapy, out of bed/ambulate Pt clinically improving. Continue doxycycline, oxygen, solu-medrol and Duonebs. s/p pericardial window. Await cytology report. Depression mild, stable.
[2019-06-07] MEDS: Citalopram 20 MG TAB PO SCH (20:02)
[2019-06-07] MEDS: Montelukast Sodium 10 mg Tablet PO SCH (20:02)
[2019-06-08 05:02] LABS: #Lymphocytes 0.7 thou/uL (1.20-3.40); #Monocytes 0.8 thou/uL (0.11-0.59); #Neutrophils 11.6 thou/uL (1.40-6.50); %Eosinophils 0.1 % (0.0-10.0); %Lymphocytes 5.2 % (21.0-51.0); %Monocytes 5.9 % (0.0-10.0); %Neutrophils 88.8 % (42.0-75.0); Hemoglobin 13.2 g/dL (12.0-16.0); Mean Corpuscular HGB CONC 32.4 g/dL (32.0-36.0); Mean Corpuscular Hemoglobin 30.1 pg (27.0-31.0); Mean Corpuscular Volume 93.1 fL (78.0-98.0); Mean Platelet Volume 7.9 fL (7.4-10.4); Platelet Count 308 thou/uL (130-400); RBC Distribution Width 14.9 % (11.5-14.5); Red Blood Cell (RBC) Count 4.39 mill/uL (4.20-5.40); White Blood Cell (WBC) Count 13.1 thou/uL (4.8-10.8)
[2019-06-08 05:14] LABS: Anion Gap 14 mmol/L (10-20); BUN (Urea Nitrogen) 33 mg/dL (9.8-20.1); Calc. Creatinine Clearance 62 mL/min (70-130); Calcium 9.6 mg/dL (7.8-10.44); Carbon Dioxide 27 mmol/L (23-31); Chloride 100 mmol/L (98-107); Estimated GFR-MDRD 38; Glucose 256 mg/dL (80-115); Potassium 5.1 mmol/L (3.5-5.1); Sodium 136 mmol/L (136-145)
[2019-06-08] MEDS: methylPREDNISolone Sod Succ 40 MG VIAL IVP SCH ×3 (05:55→17:28)
[2019-06-08] MEDS: Mometasone/Formoterol 120 PUFF INHALER INH SCH ×2 (08:07→19:12)
[2019-06-08] MEDS: Sodium Chloride 0.9% 1,000 ML IV SCH ×2 (09:00→20:17)
[2019-06-08] MEDS: Acetaminophen 325 MG TAB PO PRN (09:51)
[2019-06-08] MEDS: Enoxaparin Sodium 40 MG/0.4 ML SYRINGE SC SCH (09:52)
[2019-06-08] MEDS: Doxycycline 100 MG CAP PO SCH ×2 (09:53→20:16)
[2019-06-08] MEDS: cefTRIAXone\\ROCEPHIN 2 GM in Sodium Chloride 0.9% 100 ML IVPB SCH (15:09)
--- NOTE | 2019-06-08 16:56 | CON ---
DATE OF CONSULTATION: 06/08/2019 REASON FOR CONSULTATION: Possible pericarditis. HISTORY OF PRESENT ILLNESS: A 64-year-old history of chronic smoking, COPD, and recently diagnosed non-small cell lung cancer through percutaneous biopsy left chest area in [place], [place]. The patient has not yet started treatment, decided to come visit relatives here in town and became dyspneic and had to be admitted. No headaches. No visual symptoms. No fever documented. No abdominal pain or diarrhea. No genitourinary symptoms. No hemoptysis. No joint symptoms. PAST MEDICAL HISTORY: Recently diagnosed non-small cell lung cancer and COPD. SOCIAL HISTORY: Former smoker, quit six years ago. No alcoholic beverage use. She is a and used to live in [place], [place]. ALLERGIES: PENICILLIN WITH RASH. FAMILY HISTORY: Noncontributory. CURRENT MEDICATIONS: 1. P.R.N. medications. 2. Celexa. 3. Doxycycline. 4. Methylprednisolone. 5. Pantoprazole. PHYSICAL EXAMINATION: VITAL SIGNS: Temperature has been normal, BP 116/61, pulse 92, respirations 18 to 20, and O2 saturation 92% on 3 L. GENERAL: Appears a bit tachypneic at rest, oriented, follows commands. SKIN: Peripheral IV access. No other areas of skin breakdown. She has a chest tube in the mediastinal area following the surgery. No lymphadenopathy. HEENT: Ocular movements conjugate. Oral cavity normal. NECK: Supple. LUNGS: Symmetric breath sounds. CARDIAC: S1 and S2. Regular rate. ABDOMEN: Soft, not distended. No bladder distention. No organomegaly or ascites or ascites no joint inflammatory activity moves extremities equally. No edema. Pulses 1+ in dorsalis pedis. LABORATORY DATA: White cell count 11.6 and now is 13.1, hemoglobin 13.2, platelets 308. Sodium 136, creatinine is at 1.40, which is up from admission. AST 43, ALT 61, alkaline phosphatase 62, and albumin 4.1. Urinalysis with 0 to 3 wbc's pericardial fluid with 1800 wbc's with predominance of nonhematological cells, 23% lymphocytes, 7% neutrophils, and greater than 890,000 rbc's. Microbiology with gram-positive cocci in isolated from the pericardial fluid. This is from the [employer] bottle. The Gram stain was negative aside. The cytology is pending at this time. Chest x-ray showed catheter in the left heart border. Mediastinal prominence consistent with adenopathy. The operative report was reviewed. Dr. Douglas performed the pericardial window. No gross abnormalities were appreciated and pericardium or epicardium. ASSESSMENT: Non-small cell lung cancer, now with pericardial effusion, [id number]. No tamponade physiology was identified, status post pericardial window with hemorrhagic pericardial effusion, gram-positive cocci isolated from the fluid in a [employer] the versa Trac bottle. DISCUSSION: The [employer] bottle is broth type cultivation of sample that increases the yield of samples submitted sometimes can be associated with retrieval of organisms that actually do not represent pathogenic organisms, but only contaminants. Pending the cytology results, we will monitor the identification of the organism. It is possible that this reflects a contamination of the sample rather than true pathogenic role, i.e. that she may have malignant pericarditis rather than infective pericarditis. Job ID: [id number] [facility]
--- NOTE | 2019-06-08 18:17 | PDOC.HOSPP ---
- Subjective Encounter Date: 06/08/19 Encounter Time: 07:00 Subjective: Pt seen for followup re:pericardial effusion. Feels better, no new complaints today. - Objective Vital Signs & Weight: Vital Signs (12 hours) Temp Pulse Resp BP Pulse Ox Pulse Ox Pulse Ox 06/08/19 15:28 80 16 94 L 06/08/19 09:45 91 L 80 L 06/08/19 09:09 98.7 F 92 20 116/61 92 L 06/08/19 08:06 84 18 93 L 06/08/19 08:00 92 L Pulse Ox 06/08/19 15:28 06/08/19 09:45 91 L 06/08/19 09:09 06/08/19 08:06 06/08/19 08:00 Weight Weight 219 lb I&O: 06/07/19 06/08/19 06/09/19 06:59 06:59 06:59 Intake Total 1200 Output Total 310 Balance 890 Result Diagrams: 06/08/19 04:32 06/08/19 04:32 Additional Labs: Labs and MARs reviewed by wi Hospitalist ROS - Review of Systems Constitutional: denies: fever, chills, sweats, weakness, malaise Cardiovascular: denies: chest pain, palpitations, orthopnea, paroxysmal noc. dyspnea, edema, light headedness, other - Medication Medications: Active Medications Generic Name Dose Route Start Last Admin Trade Name Freq PRN Reason Stop Dose Admin Acetaminophen 650 mg 06/04/19 09:30 06/08/19 09:51 Tylenol PO 650 mg Q4H PRN Administration Headache/Fever/Mild Pain (1-3) Hydrocodone Bitart/Acetaminophen 2 tab 06/06/19 11:40 06/07/19 20:03 [place] 5/325 PO 2 tab Q4H PRN Administration Moderate to Severe Pain (6-10) Albuterol/Ipratropium 3 ml 06/04/19 13:00 06/08/19 15:28 Duoneb NEB 3 ml [id number] KENNETH Administration Citalopram Hydrobromide 40 mg 06/04/19 21:00 06/07/19 20:02 Celexa PO 40 mg HS KENNETH Administration Doxycycline Hyclate 100 mg 06/04/19 21:00 06/08/19 09:53 Vibramycin PO 100 mg BID KENNETH Administration Enoxaparin Sodium 40 mg 06/05/19 09:00 06/08/19 09:52 Lovenox SC 40 mg 0900 KENNETH Administration Sodium Chloride 1,000 mls @ 75 mls/hr 06/08/19 08:00 06/08/19 09:00 Normal Saline 0.9% IV 1,000 mls .[id number] KENNETH Administration Ceftriaxone Sodium 2 gm/ 100 mls @ 200 mls/hr 06/08/19 14:00 06/08/19 15:09 Sodium Chloride IVPB 100 mls 1400 KENNETH Administration Lorazepam 0.5 mg 06/05/19 07:34 06/06/19 20:40 Ativan PO 0.5 mg HS PRN Administration Anxiety Lorazepam 0.5 mg 06/07/19 12:15 06/07/19 13:00 Ativan SLOW IVP 0.5 mg WILLCALL KENNETH Administration Methylprednisolone Sodium Succinate 40 mg 06/04/19 12:00 06/08/19 17:28 Solu-Medrol IVP 40 mg Q6HR KENNETH Administration Mometasone Furoate/Formoterol Fumar 2 puff 06/04/19 18:30 06/08/19 08:07 Dulera 200 Mcg/5 Mcg Inhaler INH 2 puff BID-RT KENNETH Administration Montelukast Sodium 10 mg 06/04/19 21:00 06/07/19 20:02 Singulair PO 10 mg HS KENNETH Administration Ondansetron HCl 4 mg 06/04/19 09:30 06/04/19 10:08 Zofran IVP 4 mg Q6H PRN Administration Nausea/Vomiting Pantoprazole Sodium 40 mg 06/05/19 09:00 06/08/19 09:52 Protonix PO 40 mg DAILY KENNETH Administration Sodium Chloride 10 ml 06/04/19 21:00 06/08/19 09:00 Flush - Normal Saline IVF 10 ml Q12HR KENNETH Administration Sodium Chloride 10 ml 06/04/19 09:36 06/06/19 06:41 Flush - Normal Saline IVF 10 ml PRN PRN Administration Saline Flush - Exam General - other findings: Obese Eye: anicteric sclera ENT: no oropharyngeal lesions, moist mucosa Neck: no thyromegaly, no carotid bruit Heart: RRR Respiratory: CTAB Gastrointestinal: soft, non-tender Skin: no rashes Musculoskeletal: no muscle wasting Psychiatric: normal affect, normal behavior Hosp A/P (1) Pericardial effusion Code(s): I31.3 - PERICARDIAL EFFUSION (NONINFLAMMATORY) Status: Acute (2) COPD exacerbation Code(s): J44.1 - CHRONIC OBSTRUCTIVE PULMONARY DISEASE W (ACUTE) EXACERBATION Status: Acute (3) Metastatic lung cancer (metastasis from lung to other site) Code(s): C34.90 - MALIGNANT NEOPLASM OF UNSP PART OF UNSP BRONCHUS OR LUNG Status: Chronic (4) Depression Code(s): F32.9 - MAJOR DEPRESSIVE DISORDER, SINGLE EPISODE, UNSPECIFIED Status : Chronic - Plan plan discussed w/ family, PT/OT, respiratory therapy, out of bed/ambulate, DVT proph w/SCDs COPD exacerbation improving. Switch to oral steroids. Continue doxycycline, oxygen and Duonebs. s/p pericardial window. Await cytology report. G+ve cocci in pericardial fluid culture, consult ID for opinion. Depression mild, stable. No evidence of mets on bone scan.
[2019-06-08] MEDS: Citalopram 20 MG TAB PO SCH (20:17)
[2019-06-08] MEDS: Montelukast Sodium 10 mg Tablet PO SCH (20:17)
[2019-06-09] MEDS ORDERED: Acetaminophen 325 MG TAB ONE (07:17)
[2019-06-09] MEDS: Mometasone/Formoterol 120 PUFF INHALER INH SCH ×2 (08:10→19:33)
[2019-06-09] MEDS: predniSONE 20 MG TAB PO SCH (08:10)
[2019-06-09] MEDS: Enoxaparin Sodium 40 MG/0.4 ML SYRINGE SC SCH (08:30)
[2019-06-09] MEDS: Doxycycline 100 MG CAP PO SCH ×2 (09:00→20:33)
[2019-06-09] MEDS: Sodium Chloride 0.9% 1,000 ML IV SCH (11:19)
--- NOTE | 2019-06-09 13:56 | PDOC.HOSPP ---
- Subjective Encounter Date: 06/09/19 Encounter Time: 07:00 Subjective: Pt seen for followup re: pericardial effusion. Feels well, no complaints. - Objective Vital Signs & Weight: Vital Signs (12 hours) Temp Pulse Resp BP Pulse Ox 06/09/19 07:55 98.7 F 96 18 132/74 93 L Weight Weight 219 lb Result Diagrams: 06/08/19 04:32 06/08/19 04:32 Additional Labs: Labs and MARs reviewed by ok Hospitalist ROS - Review of Systems Cardiovascular: denies: chest pain, palpitations, orthopnea, paroxysmal noc. dyspnea, edema, light headedness Gastrointestinal: denies: nausea, vomiting, abdominal pain, diarrhea, constipation, melena, hematochezia - Medication Medications: Active Medications Generic Name Dose Route Start Last Admin Trade Name Freq PRN Reason Stop Dose Admin Acetaminophen 650 mg 06/04/19 09:30 06/08/19 09:51 Tylenol PO 650 mg Q4H PRN Administration Headache/Fever/Mild Pain (1-3) Hydrocodone Bitart/Acetaminophen 2 tab 06/06/19 11:40 06/07/19 20:03 [place] 5/325 PO 2 tab Q4H PRN Administration Moderate to Severe Pain (6-10) Albuterol/Ipratropium 3 ml 06/04/19 13:00 06/09/19 00:24 Duoneb NEB 3 ml [id number] KENNETH Administration Citalopram Hydrobromide 40 mg 06/04/19 21:00 06/08/19 20:17 Celexa PO 40 mg HS KENNETH Administration Doxycycline Hyclate 100 mg 06/04/19 21:00 06/08/19 20:16 Vibramycin PO 100 mg BID KENNETH Administration Enoxaparin Sodium 40 mg 06/05/19 09:00 06/08/19 09:52 Lovenox SC 40 mg 0900 KENNETH Administration Sodium Chloride 1,000 mls @ 75 mls/hr 06/08/19 08:00 06/08/19 20:17 Normal Saline 0.9% IV 1,000 mls .[id number] KENNETH Administration Ceftriaxone Sodium 2 gm/ 100 mls @ 200 mls/hr 06/08/19 14:00 06/08/19 15:09 Sodium Chloride IVPB 100 mls 1400 KENNETH Administration Lorazepam 0.5 mg 06/05/19 07:34 06/06/19 20:40 Ativan PO 0.5 mg HS PRN Administration Anxiety Lorazepam 0.5 mg 06/07/19 12:15 06/07/19 13:00 Ativan SLOW IVP 0.5 mg WILLCALL KENNETH Administration Mometasone Furoate/Formoterol Fumar 2 puff 06/04/19 18:30 06/08/19 19:12 Dulera 200 Mcg/5 Mcg Inhaler INH 2 puff BID-RT KENNETH Administration Montelukast Sodium 10 mg 06/04/19 21:00 06/08/19 20:17 Singulair PO 10 mg HS KENNETH Administration Ondansetron HCl 4 mg 06/04/19 09:30 06/04/19 10:08 Zofran IVP 4 mg Q6H PRN Administration Nausea/Vomiting Pantoprazole Sodium 40 mg 06/05/19 09:00 06/08/19 09:52 Protonix PO 40 mg DAILY KENNETH Administration Sodium Chloride 10 ml 06/04/19 21:00 06/08/19 20:17 Flush - Normal Saline IVF Not Given Q12HR KENNETH Sodium Chloride 10 ml 06/04/19 09:36 06/06/19 06:41 Flush - Normal Saline IVF 10 ml PRN PRN Administration Saline Flush - Exam General - other findings: Obese ENT: moist mucosa Neck: supple Heart: RRR, no rubs Respiratory: CTAB Gastrointestinal: soft, non-tender Psychiatric: normal affect, normal behavior Hosp A/P (1) Pericardial effusion Code(s): I31.3 - PERICARDIAL EFFUSION (NONINFLAMMATORY) Status: Acute (2) COPD exacerbation Code(s): J44.1 - CHRONIC OBSTRUCTIVE PULMONARY DISEASE W (ACUTE) EXACERBATION Status: Acute (3) Metastatic lung cancer (metastasis from lung to other site) Code(s): C34.90 - MALIGNANT NEOPLASM OF UNSP PART OF UNSP BRONCHUS OR LUNG Status: Chronic (4) Depression Code(s): F32.9 - MAJOR DEPRESSIVE DISORDER, SINGLE EPISODE, UNSPECIFIED Status : Chronic - Plan continue antibiotics, out of bed/ambulate COPD exacerbation improved. s/p pericardial window. Await cytology report. G+ve cocci in pericardial fluid culture, follow sensitivities. Depression mild, stable.
[2019-06-09] MEDS: cefTRIAXone\\ROCEPHIN 2 GM in Sodium Chloride 0.9% 100 ML IVPB SCH (14:12)
[2019-06-09] MEDS ORDERED: Vancomycin 1.5 GRAM/300 ML BAG 1.5 GM in Premix Bag 1 BAG IVPB SCH ×2 (15:00→17:15)
[2019-06-09 15:18] LABS: Anion Gap 13 mmol/L (10-20); BUN (Urea Nitrogen) 23 mg/dL (9.8-20.1); Calc. Creatinine Clearance 88 mL/min (70-130); Calcium 9.3 mg/dL (7.8-10.44); Carbon Dioxide 28 mmol/L (23-31); Chloride 101 mmol/L (98-107); Estimated GFR-MDRD 56; Potassium 4.7 mmol/L (3.5-5.1); Sodium 137 mmol/L (136-145)
[2019-06-09 15:19] LABS: Glucose 232 mg/dL (80-115)
[2019-06-09 17:28] LABS: #Lymphocytes 0.5 thou/uL (1.20-3.40); #Monocytes 0.9 thou/uL (0.11-0.59); #Neutrophils 9.1 thou/uL (1.40-6.50); %Eosinophils 0.1 % (0.0-10.0); %Lymphocytes 4.8 % (21.0-51.0); %Monocytes 8.4 % (0.0-10.0); %Neutrophils 86.8 % (42.0-75.0); Hemoglobin 12.9 g/dL (12.0-16.0); Mean Corpuscular HGB CONC 31.2 g/dL (32.0-36.0); Mean Corpuscular Hemoglobin 29.5 pg (27.0-31.0); Mean Corpuscular Volume 94.5 fL (78.0-98.0); Mean Platelet Volume 7.8 fL (7.4-10.4); Platelet Count 290 thou/uL (130-400); RBC Distribution Width 14.8 % (11.5-14.5); Red Blood Cell (RBC) Count 4.38 mill/uL (4.20-5.40); White Blood Cell (WBC) Count 10.4 thou/uL (4.8-10.8)
[2019-06-09] MEDS: Citalopram 20 MG TAB PO SCH (20:32)
[2019-06-09] MEDS: Montelukast Sodium 10 mg Tablet PO SCH (20:32)
[2019-06-10] MEDS: Mometasone/Formoterol 120 PUFF INHALER INH SCH ×3 (00:43→19:17)
[2019-06-10] MEDS: Lorazepam 0.5 MG TAB PO PRN (01:01)
[2019-06-10] MEDS: Sodium Chloride 0.9% 1,000 ML IV SCH ×2 (01:11→09:16)
[2019-06-10 04:17] LABS: #Lymphocytes 0.8 thou/uL (1.20-3.40); #Monocytes 1.3 thou/uL (0.11-0.59); #Neutrophils 8.2 thou/uL (1.40-6.50); %Eosinophils 0.1 % (0.0-10.0); %Lymphocytes 7.5 % (21.0-51.0); %Monocytes 12.4 % (0.0-10.0); Hemoglobin 13.5 g/dL (12.0-16.0); Mean Corpuscular Hemoglobin 30.1 pg (27.0-31.0); Mean Platelet Volume 7.2 fL (7.4-10.4); Platelet Count 312 thou/uL (130-400); RBC Distribution Width 14.6 % (11.5-14.5); White Blood Cell (WBC) Count 10.2 thou/uL (4.8-10.8)
[2019-06-10 04:36] LABS: Anion Gap 10 mmol/L (10-20); BUN (Urea Nitrogen) 19 mg/dL (9.8-20.1); Calc. Creatinine Clearance 105 mL/min (70-130); Calcium 9.1 mg/dL (7.8-10.44); Carbon Dioxide 30 mmol/L (23-31); Chloride 102 mmol/L (98-107); Estimated GFR-MDRD 69; Glucose 183 mg/dL (80-115); Potassium 4.6 mmol/L (3.5-5.1); Sodium 137 mmol/L (136-145)
[2019-06-10 08:11] LABS: Fungus Stain Final report (.)
[2019-06-10] MEDS: Doxycycline 100 MG CAP PO SCH ×2 (09:15→20:39)
[2019-06-10] MEDS: Enoxaparin Sodium 40 MG/0.4 ML SYRINGE SC SCH (09:16)
[2019-06-10] MEDS: predniSONE 20 MG TAB PO SCH (09:16)
--- NOTE | 2019-06-10 10:09 | PDOC.HOSPP ---
- Subjective Encounter Date: 06/10/19 Encounter Time: 07:00 Subjective: Pt seen for followup re: pericardial effusion. Denies chest pain or shortness of breath. - Objective Vital Signs & Weight: Vital Signs (12 hours) Temp Pulse Resp BP Pulse Ox 06/10/19 08:35 98.9 F 102 H 18 115/67 94 L 06/10/19 06:45 87 16 94 L 06/10/19 04:37 97.5 F L 89 16 113/69 93 L 06/10/19 00:41 89 16 95 06/10/19 00:24 98.2 F 86 16 120/69 93 L Weight Weight 219 lb I&O: 06/09/19 06/10/19 06/11/19 06:59 06:59 06:59 Output Total 30 Balance -30 Result Diagrams: 06/10/19 04:00 06/10/19 04:00 Additional Labs: Labs and MARs reviewed by me Hospitalist ROS - Review of Systems Cardiovascular: denies: chest pain, palpitations, orthopnea, paroxysmal noc. dyspnea, edema, light headedness Gastrointestinal: denies: nausea, vomiting, abdominal pain, diarrhea, constipation, melena, hematochezia - Medication Medications: Active Medications Generic Name Dose Route Start Last Admin Trade Name Freq PRN Reason Stop Dose Admin Acetaminophen 650 mg 06/04/19 09:30 06/08/19 09:51 Tylenol PO 650 mg Q4H PRN Administration Headache/Fever/Mild Pain (1-3) Hydrocodone Bitart/Acetaminophen 2 tab 06/06/19 11:40 06/07/19 20:03 [place] 5/325 PO 2 tab Q4H PRN Administration Moderate to Severe Pain (6-10) Albuterol/Ipratropium 3 ml 06/04/19 13:00 06/10/19 06:45 Duoneb NEB 3 ml [id number] KENNETH Administration Citalopram Hydrobromide 40 mg 06/04/19 21:00 06/09/19 20:32 Celexa PO 40 mg HS KENNETH Administration Doxycycline Hyclate 100 mg 06/04/19 21:00 06/10/19 09:15 Vibramycin PO 100 mg BID KENNETH Administration Enoxaparin Sodium 40 mg 06/05/19 09:00 06/10/19 09:16 Lovenox SC 40 mg 0900 KENNETH Administration Sodium Chloride 1,000 mls @ 75 mls/hr 06/08/19 08:00 06/10/19 09:16 Normal Saline 0.9% IV 1,000 mls .[id number] KENNETH Administration Ceftriaxone Sodium 2 gm/ 100 mls @ 200 mls/hr 06/08/19 14:00 06/09/19 14:12 Sodium Chloride IVPB 100 mls 1400 KENNETH Administration Lorazepam 0.5 mg 06/05/19 07:34 06/10/19 01:01 Ativan PO 0.5 mg HS PRN Administration Anxiety Lorazepam 0.5 mg 06/07/19 12:15 06/07/19 13:00 Ativan SLOW IVP 0.5 mg WILLCALL KENNETH Administration Mometasone Furoate/Formoterol Fumar 2 puff 06/04/19 18:30 06/10/19 06:47 Dulera 200 Mcg/5 Mcg Inhaler INH 2 puff BID-RT KENNETH Administration Montelukast Sodium 10 mg 06/04/19 21:00 06/09/19 20:32 Singulair PO 10 mg HS KENNETH Administration Ondansetron HCl 4 mg 06/04/19 09:30 06/04/19 10:08 Zofran IVP 4 mg Q6H PRN Administration Nausea/Vomiting Pantoprazole Sodium 40 mg 06/05/19 09:00 06/10/19 09:15 Protonix PO 40 mg DAILY KENNETH Administration Prednisone 40 mg 06/09/19 08:00 06/10/19 09:16 Prednisone PO 40 mg QAM-WM KENNETH Administration Sodium Chloride 10 ml 06/04/19 21:00 06/09/19 20:33 Flush - Normal Saline IVF 10 ml Q12HR KENNETH Administration Sodium Chloride 10 ml 06/04/19 09:36 06/06/19 06:41 Flush - Normal Saline IVF 10 ml PRN PRN Administration Saline Flush - Exam General Appearance: awake alert Eye: PERRL ENT: normocephalic atraumatic Neck: symmetric, no JVD Heart: RRR Respiratory: no wheezes, no rales Gastrointestinal: soft, non-tender Skin: no rashes Musculoskeletal: normal strength, no muscle wasting Psychiatric: normal affect, normal behavior Hosp A/P (1) Pericardial effusion Code(s): I31.3 - PERICARDIAL EFFUSION (NONINFLAMMATORY) Status: Acute (2) COPD exacerbation Code(s): J44.1 - CHRONIC OBSTRUCTIVE PULMONARY DISEASE W (ACUTE) EXACERBATION Status: Acute (3) Metastatic lung cancer (metastasis from lung to other site) Code(s): C34.90 - MALIGNANT NEOPLASM OF UNSP PART OF UNSP BRONCHUS OR LUNG Status: Chronic (4) Depression Code(s): F32.9 - MAJOR DEPRESSIVE DISORDER, SINGLE EPISODE, UNSPECIFIED Status : Chronic - Plan continue antibiotics, out of bed/ambulate Malignant pericardial effusion. Await oncology recommendations. COPD exacerbation improved. s/p pericardial window. G+ve cocci in pericardial fluid culture, likely contaminant. Depression mild, stable.
--- NOTE | 2019-06-10 12:09 | PQF ---
DATE: 06-10-19 ATTN: DR. AV VENTURA Please exercise your independent, professional judgment in responding to the clarification form. Clinical indicators are provided on the bottom of this form for your review Please check appropriate box(s) to clarify if the following diagnosis has been ruled in or ruled out: SEVERE SEPSIS [ ] Ruled in diagnosis [ ] Continue to treat [ ] Resolved [ x ] Ruled out diagnosis [ ] Other diagnosis [ ] Unable to determine In addition, please specify: Present on Admission (POA): [ ] Yes [ ] No [ ] Unable to determine For continuity of documentation, please document condition throughout progress notes and discharge summary. Thank You. CLINICAL INDICATORS - SIGNS / SYMPTOMS / LABS / RESULTS AND LOCATION IN MR: ER DX 06-04-19: SEVERE SEPSIS, DYSPNEA, HYPOXIA, LUNG CA ER DX 06-04-19: ACUTE ON CHRONIC OBSTRUCTIVE PULMONARY DISEASE EXACERBATION, ACUTE ON CHRONIC RESPIRATORY FAILURE WITH HYPOXIA, HX OF [id number] LUNG CANCER H&P: 06-07-19: ACUTE COPD, ACUTE PERICARDIAL EFFUSION, METASTATIC LUNG CA WBC: 06-03-19: 11.6 06-08-19: 13.1 LACTIC ACID: 06-03-19: 2.9 06-04-19: 2.6 RISK FACTORS / RESULTS AND LOCATION IN MR: ER DX 06-04-19: ACUTE ON CHRONIC OBSTRUCTIVE PULMONARY DISEASE EXACERBATION, ACUTE ON CHRONIC RESPIRATORY FAILURE WITH HYPOXIA, HX OF [id number] LUNG CANCER TREATMENTS / RESULTS AND LOCATION IN MR: MAR: 06-08-19: ROCEPHIN IV, VANCOMYCIN IV, IVF NS (This form is maintained as a part of the permanent medical record) 2014 [employer]. All Rights Reserved BRITTNI [email or web address] Office: [phone] JR
--- NOTE | 2019-06-10 13:25 | PDOC.MOPN ---
Interval History: SOB improved, able to lie flat, but still dyspneic. She still has a drain. I discussed the diagnosis of stage IV disease with her. Still awaiting records from [facility]. - Vital Signs Vital Signs: Vital Signs (12 hours) Temp Pulse Resp BP Pulse Ox 06/10/19 08:35 98.9 F 102 H 18 115/67 94 L 06/10/19 08:00 94 L 06/10/19 06:45 87 16 94 L 06/10/19 04:37 97.5 F L 89 16 113/69 93 L Weight Weight 219 lb - Physical Exam General: Alert, Oriented x3, Cooperative HEENT: EOMI Lungs: Normal air movement Cardiovascular: Regular rate Neurological: Cranial nerves 3-12 NL Psych/Mental Status: Mood NL - Labs Result Diagrams: 06/10/19 04:00 06/10/19 04:00 Lab results: Laboratory Results - last 24 hr 06/10/19 04:00: WBC 10.2, RBC 4.50, Hgb 13.5, Hct 42.3, MCV 94.0, MCH 30.1, MCHC 32.0, RDW 14.6 H, Plt Count 312, MPV 7.2 L, Neutrophils % 80.0 H, Lymphocytes % 7.5 L, Monocytes % 12.4 H, Eosinophils % 0.1, Basophils % 0.0, Neutrophils # 8.2 H, Lymphocytes # 0.8 L, Monocytes # 1.3 H, Eosinophils # 0.0, Basophils # 0.0 06/10/19 04:00: Sodium 137, Potassium 4.6, Chloride 102, Carbon Dioxide 30, Anion Gap 10, BUN 19, Creatinine 0.83, Estimated GFR (MDRD) 69, Glucose 183 H, Calcium 9.1 06/09/19 06:00: WBC 10.4, RBC 4.38, Hgb 12.9, Hct 41.4, MCV 94.5, MCH 29.5, MCHC 31.2 L, RDW 14.8 H, Plt Count 290, MPV 7.8, Neutrophils % 86.8 H, Neutrophils % (Manual) Not Reportable, Lymphocytes % 4.8 L, Monocytes % 8.4, Eosinophils % 0.1, Basophils % 0.0, Neutrophils # 9.1 H, Lymphocytes # 0.5 L, Monocytes # 0.9 H, Eosinophils # 0.0, Basophils # 0.0 06/09/19 06:00: Sodium 137, Potassium 4.7, Chloride 101, Carbon Dioxide 28, Anion Gap 13, BUN 23 H, Creatinine 0.99, Estimated GFR (MDRD) 56, Glucose 232 H , Calcium 9.3 06/06/19 09:04: Fungus Stain A/P - Problem (1) Metastatic lung cancer (metastasis from lung to other site) Current Visit: Yes Code(s): C34.90 - MALIGNANT NEOPLASM OF UNSP PART OF UNSP BRONCHUS OR LUNG Status: Chronic - Plan Plan: Pericardium + pericardial fluid positive for SqCC Plan immunotherapy +/- chemotherapy based on PD-L1 status: awaiting records from [facility] to discharge home when ready, f/u in clinic
[2019-06-10] MEDS ORDERED: Vancomycin 1.5 GRAM/300 ML BAG 1.5 GM in Premix Bag 1 BAG IVPB SCH (15:00)
[2019-06-10] MEDS: cefTRIAXone\\ROCEPHIN 2 GM in Sodium Chloride 0.9% 100 ML IVPB SCH (15:18)
[2019-06-10 16:18] LABS: Vancomycin, Trough 11.2 ug/mL
[2019-06-10] MEDS ORDERED: Vancomycin HCl 1.5 GM in Sodium Chloride 0.9% 250 ML 300 ML IVPB SCH (17:00)
[2019-06-10] MEDS: Vancomycin HCl 1 GM in Premix Bag 1 BAG IVPB SCH (17:27)
[2019-06-10] MEDS: Citalopram 20 MG TAB PO SCH (20:39)
[2019-06-10] MEDS: Montelukast Sodium 10 mg Tablet PO SCH (21:38)
[2019-06-11] MEDS: Lorazepam 0.5 MG TAB PO PRN (00:15)
[2019-06-11] MEDS: Sodium Chloride 0.9% 1,000 ML IV SCH ×2 (03:40→18:02)
[2019-06-11 04:19] LABS: #Monocytes 1.5 thou/uL (0.11-0.59); #Neutrophils 8.1 thou/uL (1.40-6.50); %Basophils 0.3 % (0.0-1.0); %Eosinophils 0.1 % (0.0-10.0); %Lymphocytes 9.5 % (21.0-51.0); %Monocytes 13.7 % (0.0-10.0); %Neutrophils 76.4 % (42.0-75.0); Hemoglobin 14.2 g/dL (12.0-16.0); Mean Corpuscular HGB CONC 31.7 g/dL (32.0-36.0); Mean Corpuscular Hemoglobin 29.3 pg (27.0-31.0); Mean Corpuscular Volume 92.4 fL (78.0-98.0); Mean Platelet Volume 7.2 fL (7.4-10.4); Platelet Count 327 thou/uL (130-400); RBC Distribution Width 14.7 % (11.5-14.5); Red Blood Cell (RBC) Count 4.84 mill/uL (4.20-5.40); White Blood Cell (WBC) Count 10.6 thou/uL (4.8-10.8)
[2019-06-11 04:37] LABS: Anion Gap 9 mmol/L (10-20); BUN (Urea Nitrogen) 16 mg/dL (9.8-20.1); Calc. Creatinine Clearance 105 mL/min (70-130); Carbon Dioxide 33 mmol/L (23-31); Chloride 99 mmol/L (98-107); Estimated GFR-MDRD 69; Potassium 4.4 mmol/L (3.5-5.1); Sodium 137 mmol/L (136-145)
[2019-06-11 04:38] LABS: Calcium 9.1 mg/dL (7.8-10.44); Glucose 171 mg/dL (80-115)
[2019-06-11] MEDS: Vancomycin HCl 1 GM in Premix Bag 1 BAG IVPB SCH (04:41)
[2019-06-11] MEDS: Mometasone/Formoterol 120 PUFF INHALER INH SCH ×2 (07:45→19:39)
[2019-06-11] MEDS: Doxycycline 100 MG CAP PO SCH ×2 (09:12→20:29)
[2019-06-11] MEDS: Enoxaparin Sodium 40 MG/0.4 ML SYRINGE SC SCH (09:12)
[2019-06-11] MEDS: predniSONE 20 MG TAB PO SCH (09:13)
--- NOTE | 2019-06-11 13:02 | PDOC.MOPN ---
Interval History: Breathing ok. Eating well. - Vital Signs Vital Signs: Vital Signs (12 hours) Temp Pulse Resp BP Pulse Ox 06/11/19 08:40 92 L 06/11/19 08:00 97.8 F 104 H 20 120/56 L 92 L 06/11/19 07:36 87 20 94 L Weight Weight 219 lb - Physical Exam General: Alert, Oriented x3, No acute distress HEENT: Atraumatic, PERRLA, EOMI, Mucous membr. moist/pink Lungs: Other Extremities: No clubbing, No cyanosis, No edema, Normal pulses, No tenderness/ swelling Skin: No rashes, No breakdown, No significant lesion Neurological: Normal gait, Normal speech, Strength at 5/5 X4 ext, Normal tone, Sensation intact, Cranial nerves 3-12 NL, Reflexes 2+ Psych/Mental Status: Mental status NL, Mood NL - Labs Result Diagrams: 06/11/19 03:47 06/11/19 03:46 Lab results: Laboratory Results - last 24 hr 06/11/19 03:47: WBC 10.6, RBC 4.84, Hgb 14.2, Hct 44.7, MCV 92.4, MCH 29.3, MCHC 31.7 L, RDW 14.7 H, Plt Count 327, MPV 7.2 L, Neutrophils % 76.4 H, Lymphocytes % 9.5 L, Monocytes % 13.7 H, Eosinophils % 0.1, Basophils % 0.3, Neutrophils # 8.1 H, Lymphocytes # 1.0 L, Monocytes # 1.5 H, Eosinophils # 0.0, Basophils # 0.0 06/11/19 03:46: Sodium 137, Potassium 4.4, Chloride 99, Carbon Dioxide 33 H, Anion Gap 9 L, BUN 16, Creatinine 0.83, Estimated GFR (MDRD) 69, Glucose 171 H, Calcium 9.1 06/10/19 15:50: Vancomycin Trough 11.2 Status: lab reviewed by me A/P - Problem (1) Pericardial effusion Current Visit: Yes Code(s): I31.3 - PERICARDIAL EFFUSION (NONINFLAMMATORY) Status: Acute (2) Metastatic lung cancer (metastasis from lung to other site) Current Visit: Yes Code(s): C34.90 - MALIGNANT NEOPLASM OF UNSP PART OF UNSP BRONCHUS OR LUNG Status: Chronic - Plan Plan: Pericardium + pericardial fluid positive for SqCC Plan immunotherapy +/- chemotherapy based on PD-L1 status: awaiting records from [facility] to discharge home when ready, f/u in clinic on 06/24/19 @ 1:45
--- NOTE | 2019-06-11 13:44 | PRG ---
DATE OF SERVICE: 06/11/2019 SUBJECTIVE: Ms. Nunez is stable without pain or dyspnea. No abdominal pain. Voiding without difficulty. OBJECTIVE: VITAL SIGNS: T-max 98.9, blood pressure 120/56, pulse 104, respirations 20, and O2 saturation 92%. GENERAL: The patient appears in no distress. HEART: S1 and S2. ABDOMEN: Soft. LUNGS: No crackles or wheezing. LABORATORY DATA: Cultures revealed coagulase negative Staph likely contaminant. The pathology with squamous cell CA consistent with malignant pericarditis from her primary tumor. 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 The organism isolated considered a contaminant, discontinue antimicrobial therapy. Job ID: [id number]
--- NOTE | 2019-06-11 14:56 | PRG ---
DATE OF SERVICE: 06/11/2019 SUBJECTIVE: Ms. Nunez is doing better. She is still having shortness of breath, but seems back to baseline. She did have her surgical drain removed earlier today. She voices no new complaints. OBJECTIVE: VITAL SIGNS: Blood pressure is 120/56, pulse is 104, respirations are 20, temperature 97.8, O2 saturation is 92% on 3 L O2. CONSTITUTIONAL: She is alert and oriented and in no apparent distress. She is well-developed and well-nourished. Karnofsky performance status is 70%. Remainder of physical exam was not performed as today's visit was spent entirely on counseling and coordination of care. LABORATORY DATA: Pathology from her pericardium and pericardial fluid unfortunately was positive for metastatic squamous cell carcinoma. CBC today revealed a white blood cell count of 10,600, hemoglobin of 14.2, hematocrit of 44.7, and platelet count of 327,000. ASSESSMENT: Ms. 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 She has a malignant pericardial effusion and likely has a malignant left pleural effusion as well as a contralateral lung mass also. PLAN: I have discussed the case with Dr. Coffey and subsequently discussed the case today with Ms. Nunez. She now has biopsy-proven stage IV disease. Her shortness of breath seems to be at baseline. She has some narrowing of the left upper lobe bronchus from her adenopathy, but does not appear to be obstructed. She does have bulky adenopathy in the mediastinum, but again it is not causing a complete obstruction at this point. Her shortness of breath is back to baseline and much of this is related to her COPD. She will likely be discharged home soon. Given that she has stage IV disease with a malignant pericardial effusion, I think her best initial management is with chemotherapy/immunotherapy. Dr. Coffey is in agreement. We are still awaiting records from her initial biopsy that was done in [place], particularly some of her molecular markers such as PD-L1. At this point, I am not favoring any radiation therapy at the time being. Rather, we will start with chemotherapy/immunotherapy. We can give her radiation if she develops more of an obstructive pattern if necessary. Again, this was all discussed with Ms. Nunez and she is in agreement. She is going to follow up and start treatment with Dr. Coffey as an outpatient. I can see her again at any point in the future should the need arise. Job ID: [id number]
--- NOTE | 2019-06-11 17:24 | PDOC.HOSPP ---
- Subjective Encounter Date: 06/11/19 Encounter Time: 07:00 Subjective: Pt seen for followup re: pericardial effusion. Feels better, no complaints. - Objective Vital Signs & Weight: Vital Signs (12 hours) Temp Pulse Resp BP Pulse Ox 06/11/19 13:45 92 20 94 L 06/11/19 08:40 92 L 06/11/19 08:00 97.8 F 104 H 20 120/56 L 92 L 06/11/19 07:36 87 20 94 L Weight Weight 219 lb I&O: 06/10/19 06/11/19 06/12/19 06:59 06:59 06:59 Intake Total 4143 Output Total 80 75 Balance -80 4068 Result Diagrams: 06/11/19 03:47 06/11/19 03:46 Additional Labs: Labs and MARs reviewed by dc Hospitalist ROS - Review of Systems Respiratory: denies: cough, shortness of breath, SOB with excertion, pleuritic pain, wheezing Musculoskeletal: denies: neck pain, shoulder pain, arm pain, back pain, hand pain, leg pain, foot pain Skin: denies: rash, lesions, hayder, bruising - Medication Medications: Active Medications Generic Name Dose Route Start Last Admin Trade Name Freq PRN Reason Stop Dose Admin Acetaminophen 650 mg 06/04/19 09:30 06/08/19 09:51 Tylenol PO 650 mg Q4H PRN Administration Headache/Fever/Mild Pain (1-3) Hydrocodone Bitart/Acetaminophen 2 tab 06/06/19 11:40 06/07/19 20:03 [place] 5/325 PO 2 tab Q4H PRN Administration Moderate to Severe Pain (6-10) Albuterol/Ipratropium 3 ml 06/04/19 13:00 06/11/19 13:45 Duoneb NEB 3 ml [id number] KENNETH Administration Citalopram Hydrobromide 40 mg 06/04/19 21:00 06/10/19 20:39 Celexa PO 40 mg HS KENNETH Administration Doxycycline Hyclate 100 mg 06/04/19 21:00 06/11/19 09:12 Vibramycin PO 100 mg BID KENNETH Administration Enoxaparin Sodium 40 mg 06/05/19 09:00 06/11/19 09:12 Lovenox SC 40 mg 0900 KENNETH Administration Sodium Chloride 1,000 mls @ 75 mls/hr 06/08/19 08:00 06/11/19 03:40 Normal Saline 0.9% IV 1,000 mls .[id number] KENNETH Administration Lorazepam 0.5 mg 06/05/19 07:34 06/11/19 00:15 Ativan PO 0.5 mg HS PRN Administration Anxiety Lorazepam 0.5 mg 06/07/19 12:15 06/07/19 13:00 Ativan SLOW IVP 0.5 mg WILLCALL KENNETH Administration Mometasone Furoate/Formoterol Fumar 2 puff 06/04/19 18:30 06/11/19 07:45 Dulera 200 Mcg/5 Mcg Inhaler INH 2 puff BID-RT KENNETH Administration Montelukast Sodium 10 mg 06/04/19 21:00 06/10/19 21:38 Singulair PO 10 mg HS KENNETH Administration Ondansetron HCl 4 mg 06/04/19 09:30 06/04/19 10:08 Zofran IVP 4 mg Q6H PRN Administration Nausea/Vomiting Pantoprazole Sodium 40 mg 06/05/19 09:00 06/11/19 09:13 Protonix PO 40 mg DAILY KENNETH Administration Prednisone 40 mg 06/09/19 08:00 06/11/19 09:13 Prednisone PO 40 mg QAM-WM KENNETH Administration Sodium Chloride 10 ml 06/04/19 21:00 06/11/19 09:13 Flush - Normal Saline IVF Not Given Q12HR KENNETH Sodium Chloride 10 ml 06/04/19 09:36 06/10/19 15:18 Flush - Normal Saline IVF 10 ml PRN PRN Administration Saline Flush - Exam General Appearance: NAD Eye: anicteric sclera ENT: moist mucosa Neck: supple, symmetric Heart: no murmur Respiratory: CTAB, no wheezes Skin: no lesions Musculoskeletal: normal tone, normal strength Hosp A/P (1) Pericardial effusion Code(s): I31.3 - PERICARDIAL EFFUSION (NONINFLAMMATORY) Status: Acute (2) COPD exacerbation Code(s): J44.1 - CHRONIC OBSTRUCTIVE PULMONARY DISEASE W (ACUTE) EXACERBATION Status: Acute (3) Metastatic lung cancer (metastasis from lung to other site) Code(s): C34.90 - MALIGNANT NEOPLASM OF UNSP PART OF UNSP BRONCHUS OR LUNG Status: Chronic (4) Depression Code(s): F32.9 - MAJOR DEPRESSIVE DISORDER, SINGLE EPISODE, UNSPECIFIED Status : Chronic - Plan out of bed/ambulate Malignant pericardial effusion. For immunotherapy+chemotherapy. COPD exacerbation improved. s/p pericardial window. Likely home 24-48 h
[2019-06-11] MEDS: Citalopram 20 MG TAB PO SCH (20:29)
[2019-06-11] MEDS: Montelukast Sodium 10 mg Tablet PO SCH (20:29)
[2019-06-12 03:51] LABS: #Eosinphils 0.1 thou/uL (0.0-0.7); #Lymphocytes 1.5 thou/uL (1.20-3.40); #Monocytes 1.5 thou/uL (0.11-0.59); #Neutrophils 7.2 thou/uL (1.40-6.50); %Basophils 0.1 % (0.0-1.0); %Eosinophils 0.5 % (0.0-10.0); %Lymphocytes 14.5 % (21.0-51.0); %Monocytes 14.6 % (0.0-10.0); %Neutrophils 70.3 % (42.0-75.0); Mean Corpuscular HGB CONC 32.5 g/dL (32.0-36.0); Mean Corpuscular Hemoglobin 29.9 pg (27.0-31.0); Mean Platelet Volume 6.9 fL (7.4-10.4); Platelet Count 314 thou/uL (130-400); RBC Distribution Width 14.4 % (11.5-14.5); White Blood Cell (WBC) Count 10.3 thou/uL (4.8-10.8)
[2019-06-12 04:11] LABS: Anion Gap 9 mmol/L (10-20); BUN (Urea Nitrogen) 15 mg/dL (9.8-20.1); Calc. Creatinine Clearance 106 mL/min (70-130); Calcium 8.8 mg/dL (7.8-10.44); Carbon Dioxide 34 mmol/L (23-31); Chloride 96 mmol/L (98-107); Estimated GFR-MDRD 70; Glucose 159 mg/dL (80-115); Potassium 3.9 mmol/L (3.5-5.1); Sodium 135 mmol/L (136-145)
[2019-06-12] MEDS: Sodium Chloride 0.9% 1,000 ML IV SCH (06:20)
[2019-06-12] MEDS: Mometasone/Formoterol 120 PUFF INHALER INH SCH ×2 (08:20→19:47)
[2019-06-12] MEDS: predniSONE 20 MG TAB PO SCH (09:20)
[2019-06-12] MEDS: Doxycycline 100 MG CAP PO SCH (09:20)
[2019-06-12] MEDS: Enoxaparin Sodium 40 MG/0.4 ML SYRINGE SC SCH (09:20)
[2019-06-12] MEDS: Acetaminophen 325 MG TAB PO PRN (09:30)
--- NOTE | 2019-06-12 13:20 | PDOC.HOSPP ---
- Subjective Encounter Date: 06/12/19 Encounter Time: 07:00 Subjective: Pt seen for followup re: pericardial effusion. No complaints. - Objective Vital Signs & Weight: Vital Signs (12 hours) Temp Pulse Resp BP Pulse Ox 06/12/19 08:17 91 18 95 06/12/19 08:00 99.1 F 90 20 141/82 H 94 L Weight Weight 219 lb I&O: 06/11/19 06/12/19 06/13/19 06:59 06:59 06:59 Intake Total 4143 1250 Output Total 75 Balance 4068 1250 Result Diagrams: 06/12/19 03:42 06/12/19 03:42 Additional Labs: Labs and MARs reviewed by tn Hospitalist ROS - Review of Systems Cardiovascular: denies: chest pain, palpitations, orthopnea, paroxysmal noc. dyspnea, edema, light headedness Musculoskeletal: denies: neck pain, shoulder pain, arm pain, back pain, hand pain, leg pain, foot pain - Medication Medications: Active Medications Generic Name Dose Route Start Last Admin Trade Name Freq PRN Reason Stop Dose Admin Acetaminophen 650 mg 06/04/19 09:30 06/12/19 09:30 Tylenol PO 650 mg Q4H PRN Administration Headache/Fever/Mild Pain (1-3) Hydrocodone Bitart/Acetaminophen 2 tab 06/06/19 11:40 06/07/19 20:03 [place] 5/325 PO 2 tab Q4H PRN Administration Moderate to Severe Pain (6-10) Albuterol/Ipratropium 3 ml 06/04/19 13:00 06/12/19 08:17 Duoneb NEB 3 ml [id number] KENNETH Administration Citalopram Hydrobromide 40 mg 06/04/19 21:00 06/11/19 20:29 Celexa PO 40 mg HS KENNETH Administration Doxycycline Hyclate 100 mg 06/04/19 21:00 06/12/19 09:20 Vibramycin PO 100 mg BID KENNETH Administration Enoxaparin Sodium 40 mg 06/05/19 09:00 06/12/19 09:20 Lovenox SC 40 mg 0900 KENNETH Administration Sodium Chloride 1,000 mls @ 75 mls/hr 06/08/19 08:00 06/12/19 06:20 Normal Saline 0.9% IV 1,000 mls .[id number] KENNETH Administration Lorazepam 0.5 mg 06/05/19 07:34 06/11/19 00:15 Ativan PO 0.5 mg HS PRN Administration Anxiety Lorazepam 0.5 mg 06/07/19 12:15 06/07/19 13:00 Ativan SLOW IVP 0.5 mg WILLCALL KENNETH Administration Mometasone Furoate/Formoterol Fumar 2 puff 06/04/19 18:30 06/12/19 08:20 Dulera 200 Mcg/5 Mcg Inhaler INH 2 puff BID-RT KENNETH Administration Montelukast Sodium 10 mg 06/04/19 21:00 06/11/19 20:29 Singulair PO 10 mg HS KENNETH Administration Ondansetron HCl 4 mg 06/04/19 09:30 06/04/19 10:08 Zofran IVP 4 mg Q6H PRN Administration Nausea/Vomiting Pantoprazole Sodium 40 mg 06/05/19 09:00 06/12/19 09:20 Protonix PO 40 mg DAILY KENNETH Administration Prednisone 40 mg 06/09/19 08:00 06/12/19 09:20 Prednisone PO 40 mg QAM-WM KENNETH Administration Sodium Chloride 10 ml 06/04/19 21:00 06/11/19 20:32 Flush - Normal Saline IVF Not Given Q12HR KENNETH Sodium Chloride 10 ml 06/04/19 09:36 06/10/19 15:18 Flush - Normal Saline IVF 10 ml PRN PRN Administration Saline Flush - Exam General Appearance: awake alert Eye: anicteric sclera ENT: moist mucosa Neck: supple Heart: RRR Respiratory: no rales Gastrointestinal: soft, non-tender Extremities: no edema Psychiatric: normal affect, normal behavior Hosp A/P (1) Pericardial effusion Code(s): I31.3 - PERICARDIAL EFFUSION (NONINFLAMMATORY) Status: Acute (2) Metastatic lung cancer (metastasis from lung to other site) Code(s): C34.90 - MALIGNANT NEOPLASM OF UNSP PART OF UNSP BRONCHUS OR LUNG Status: Chronic (3) Depression Code(s): F32.9 - MAJOR DEPRESSIVE DISORDER, SINGLE EPISODE, UNSPECIFIED Status : Chronic (4) COPD exacerbation Code(s): J44.1 - CHRONIC OBSTRUCTIVE PULMONARY DISEASE W (ACUTE) EXACERBATION Status: Resolved - Plan Pt reportedly desaturated while ambulating, will reassess. Malignant pericardial effusion. For immunotherapy+chemotherapy. s/p pericardial window. Likely home later today or tomorrow.
[2019-06-12] MEDS: Citalopram 20 MG TAB PO SCH (20:08)
[2019-06-12] MEDS: Montelukast Sodium 10 mg Tablet PO SCH (20:08)
[2019-06-13] MEDS: Mometasone/Formoterol 120 PUFF INHALER INH SCH (07:14)
[2019-06-13 08:15] VITALS: BP 126/66; TEMP 99.1
[2019-06-13] MEDS: Enoxaparin Sodium 40 MG/0.4 ML SYRINGE SC SCH (08:54)
[2019-06-13] MEDS: Acetaminophen 325 MG TAB PO PRN (11:50)
--- NOTE | 2019-06-13 23:38 | DIS ---
DATE OF ADMISSION: 06/04/2019 DATE OF DISCHARGE: 06/13/2019 PRIMARY CARE PROVIDER: Unknown. DISCHARGE DIAGNOSES: 1. Chronic obstructive pulmonary disease exacerbation. 2. Pericardial effusion. 3. Stage IV lung cancer. 4. Acute kidney injury. 5. Hyponatremia. CONDITION OF PATIENT ON THE DAY OF DISCHARGE: Stable. I assessed Ms. Nunez on the day of discharge. She denies any chest pain or shortness of breath. Vital signs are stable. S1 and S2 are heard, regular. Lungs are clear to auscultation bilaterally. CONSULTATIONS DURING THIS HOSPITALIZATION: Radiation Oncology, Dr. Boyer. Cardiovascular Surgery, Dr. Douglas. Infectious Diseases, Dr. Beltran. Oncology, Dr. Coffey. HOSPITAL COURSE: Ms. Nunez is a pleasant 64-year-old lady, who was admitted to [facility] on 06/04/2019, for COPD exacerbation with history of recently diagnosed lung cancer. Please refer to Dr. Garcia's history and physical note dated 06/04/2019 for further details. 2D echocardiogram showed moderate to large pericardial effusion, left ventricular ejection fraction of 60 % to 65%, E/A flow reversal suggestive of diastolic dysfunction, mild mitral regurgitation, and mild tricuspid regurgitation. She was seen by Radiation Oncology, Medical Oncology, CV Surgery Services. On 06/06, she underwent subxiphoid pericardial window procedure. Pericardial fluid grew Staphylococcus epidermidis , most likely contaminant. The patient improved clinically in terms of COPD exacerbation. Pericardial fluid cytology showed squamous cell carcinoma. Pericardial specimen also showed squamous cell carcinoma. She will be followed by Oncology Service for treatment options. She has been advised to chemotherapy and immunotherapy. POST ACUTE CARE FOLLOWUP: With Dr. Seng Coffey on 06/24/2019, at 1:45 pm. The patient has also been advised to find primary care provider and follow up with them in 3 days' time. DISCHARGE MEDICATIONS: 1. Citalopram 40 mg at bedtime. 2. Advair 1 puff 2 times a day. 3. Singulair 10 mg at bedtime. 4. Ventolin 2 puffs every 4 hours as needed. 5. DuoNeb every 6 hours as needed. 6. Melatonin 3 mg at bedtime as needed. DIET: Regular. ACTIVITY: As tolerated. DISCHARGE DESTINATION: Home. TIME SPENT: Total amount of time spent coordinating this discharge: 32 minutes. Job ID: [id number] [facility]
--- NOTE | 2019-06-14 20:44 | PQF ---
MOHSEN HIDALGO DAVID [id number] CLINICAL DOCUMENTATION CLARIFICATION FORM: POST DISCHARGE Addendum to original discharge summary date: ____ Late entry note date: __ DATE: 06/14/19 ATTN: Festus Dudley Please exercise your independent, professional judgment in responding to the clarification form. Clinical indicators are provided on the bottom of this form for your review Please check appropriate box(s) to clarify if the following diagnosis has been ruled in or ruled out: Acute on Chronic Respiratory Failure [ x ] Ruled in diagnosis [ ] Continue to treat [x ] Resolved [ ] Ruled out diagnosis [ ] Cannot rule out diagnosis [ ] Other diagnosis [ ] Unable to determine In addition, please specify: Present on Admission (POA): [ x ] Yes [ ] No [ ] Unable to determine For continuity of documentation, please document condition throughout progress notes and discharge summary. Thank You. CLINICAL INDICATORS - SIGNS / SYMPTOMS / LABS H&P p1 06/04 Dr Radha silveira patient gives history of having worsening SOB and loss of appetite from the last few days H&P p1 06/04 Dr Garcia er voice also became hoarse H&P p1 06/04 Dr Radha silveira pt in between got hospitalized in [place] 3 weeks back paty saturation dropped down to 60% H&P p1 06/04 Dr Garcia he has cough. She has known history of COPD and is on oxygen home H&P p2 06/04 Dr Garcia P 166/86, [id number], Resp rate 28, saturating 91% RISK FACTORS H&P p1 06/04 - COPD on Home Oxygen H&P p1 06/04 - Lung Cancer H&P p1 06/04 - Quit smoking 6year ago H&P p3 06/04 - Acute on chronic Respiratory failure with Hypoxia TREATMENTS Respiratory Panel 06/04 - Oxygen 2lpm via nasal cannula MAR 29 - Solu-Medrol IV 40mg SEP 14 - DuoNeb q6h H&P p3 06/04 - Continue Celexa and Singulair along with Dulera Inhaler (This form is maintained as a part of the permanent medical record) 2014 [employer], [employer]. All Rights Reserved [email or web address] [not provided] MTDD
== END 2019-06-13 14:36 | disposition home or self-care (01) | DRG 163 ==
LOC: ERS 22:46 → ONC 06-04 02:59
PROVIDERS: ADMIT Family Medicine; ATTEND Family Medicine
PROC: 0W9D00Z Drainage of Pericardial Cavity with Drainage Device, Open Approach (ICD-10-PCS; principal; 2019-06-06)
PROC: 02BN0ZX Excision of Pericardium, Open Approach, Diagnostic (ICD-10-PCS; 2019-06-06)
DX: C34.12 Malignant neoplasm of upper lobe, left bronchus or lung (principal); J96.21 Acute and chronic respiratory failure with hypoxia; J44.1 Chronic obstructive pulmonary disease with (acute) exacerbation; N17.9 Acute kidney failure, unspecified; E87.1 Hypo-osmolality and hyponatremia; I31.3 Pericardial effusion (noninflammatory); C79.89 Secondary malignant neoplasm of other specified sites; C34.11 Malignant neoplasm of upper lobe, right bronchus or lung; I08.1 Rheumatic disorders of both mitral and tricuspid valves; F32.9 Major depressive disorder, single episode, unspecified; F41.9 Anxiety disorder, unspecified; Z99.81 Dependence on supplemental oxygen; Z79.899 Other long term (current) drug therapy; Z87.891 Personal history of nicotine dependence; Z88.0 Allergy status to penicillin
CPT/HCPCS: 36415; 71045; 71260; 78306; 80048; 80053; 80202; 81003; 81015; 82945; 83605; 83615; 83880; 83986; 84157; 84484; 85025; 85060; 87040; 87070; 87077; 87102; 87116; 87186; 87205; 87206; 88112; 88305; 88313; 88341; 88342; 89051; 93005; 93306; 94640; 96361; 96365; 96367; 96375; A9503; J0692; J0696; J1580; J1650; J1885; J2001; J2060; J2405; J2704; J2920; J3010; J3370; J3490; J7050; J7512; J7620; Q9967

== ENCOUNTER 2019-08-02 13:36 | Outpatient (CLI) | payer MEDICARE ==
--- NOTE | 2019-08-02 15:08 | RAD ---
2 VIEW CHEST: Date: 08/02/2019 INDICATION: Dyspnea. Correlation made to chest film of 06/06/[address] chest 06/04/19. The CT showed confluent opacity in the left upper lobe extending to the pleural surface with left hilar mass, extensive mediastinal deepti opathy, and a cavitary mass in the left lower lobe, bilateral effusions, and pericardial effusion. FINDINGS: Opacities in the left upper lung again seen consistent with prior CT findings. Diffuse left lower idris g opacity with evidence of bilateral effusions again noted. Heart size is upper normal and pericardia l effusion may persist. Vascular markings within normal range. IMPRESSION: Left lung parenchymal opacities with evidence of bilateral effusions. Consider follow-up chest CT to compare to the exam of 06/04/19. POS: DOTH
== END 2019-08-02 13:37 | disposition home or self-care (01) ==
LOC: RAD 13:36
PROVIDERS: ATTEND Internal Medicine Pulmonary Disease
DX: R06.00 Dyspnea, unspecified (principal); J90 Pleural effusion, not elsewhere classified; R91.8 Other nonspecific abnormal finding of lung field
CPT/HCPCS: 71046

== ENCOUNTER 2019-09-17 22:34 | Inpatient (IN) | payer MEDICARE ==
[~2019-09-17 22:34] MED LIST: Iopamidol 370 76% 100 ML VIAL ONE
[2019-09-17 22:55] LABS: #Basophils 0.1 thou/uL (0.0-0.2); #Eosinphils 0.1 thou/uL (0.0-0.7); #Lymphocytes 3.8 thou/uL (1.20-3.40); #Monocytes 1.6 thou/uL (0.11-0.59); #Neutrophils 11.3 thou/uL (1.40-6.50); %Basophils 0.5 % (0.0-1.0); %Eosinophils 0.4 % (0.0-10.0); %Lymphocytes 22.4 % (21.0-51.0); %Monocytes 9.6 % (0.0-10.0); %Neutrophils 67.1 % (42.0-75.0); Hemoglobin 15.6 g/dL (12.0-16.0); Mean Corpuscular HGB CONC 32.7 g/dL (32.0-36.0); Mean Corpuscular Hemoglobin 29.8 pg (27.0-31.0); Mean Corpuscular Volume 91.2 fL (78.0-98.0); Mean Platelet Volume 8.3 fL (7.4-10.4); Platelet Count 456 thou/uL (130-400); RBC Distribution Width 14.2 % (11.5-14.5); Red Blood Cell (RBC) Count 5.24 mill/uL (4.20-5.40); White Blood Cell (WBC) Count 16.9 thou/uL (4.8-10.8)
--- NOTE | 2019-09-17 23:07 | RAD ---
Frontal radiograph chest: 09/17/2019 COMPARISON: 08/02/2019 HISTORY: Shortness of breath FINDINGS: Stable masslike opacity in the left hilar region and left lung apex. Stable increased densi ty in the left base obscuring the left hemidiaphragm with blunting of the left costophrenic angle. Right lung appears grossly unremarkable. No significant interval change when compared to the prior examination. IMPRESSION: Stable mass in the left lung apex and left perihilar region with nonspecific stable pleur al and parenchymal opacity within the left lung base. Findings are concerning for multifocal malignancy. Infectious pneumonitis or aspiration within the left base cannot be excluded.
[2019-09-17] MEDS ORDERED: Lorazepam 2 MG/ML VIAL ONE (23:09)
[2019-09-17 23:21] LABS: ALT (SGPT) 47 U/L (8-55); AST (SGOT) 72 U/L (5-34); Albumin 3.5 g/dL (3.4-4.8); Alkaline Phosphatase 198 U/L (40-110); Anion Gap 18 mmol/L (10-20); BUN (Urea Nitrogen) 15 mg/dL (9.8-20.1); Bilirubin, Total 1.1 mg/dL (0.2-1.2); Calc. Creatinine Clearance 0 mL/min (70-130); Calcium 10.9 mg/dL (7.8-10.44); Carbon Dioxide 28 mmol/L (23-31); Chloride 96 mmol/L (98-107); Estimated GFR-MDRD 52; Globulin 3.9 g/dL (2.4-3.5); Glucose 119 mg/dL (80-115); Potassium 4.6 mmol/L (3.5-5.1); Protein, Total 7.4 g/dL (6.0-8.3); Sodium 137 mmol/L (136-145)
[2019-09-17 23:49] LABS: Bilirubin Moderate (Negative); Blood, Urine Negative (Negative); Clarity Clear (Clear); Glucose, Urine (Dipstick) Negative (Negative); Leukocyte Negative (Negative); Nitrite Negative (Negative); Protein, Urine (Dipstick) Negative (Neg-Trace)
[2019-09-18] MEDS ORDERED: Cefepime 2 GM VIAL ONE (00:01)
[2019-09-18] MEDS ORDERED: Azithromycin 500 MG VIAL ONE (00:27)
[2019-09-18 01:53] LABS: Lactic Acid 2.4 mmol/L (0.5-2.2)
[2019-09-18] MEDS ORDERED: CCU Electrolyte Replacement 1 EACH IVPB ONE (02:10)
[2019-09-18] MEDS ORDERED: Magnesium Oxide 400 MG TAB PO PRN ×2 (02:13)
[2019-09-18] MEDS ORDERED: Magnesium 2 GM/50 ML 2 GM in Premix Bag 1 BAG IVPB PRN (02:13)
[2019-09-18] MEDS ORDERED: CCU ELECTROLYTE REPLACEMENT PROTOCOL FS PRN (02:13)
[2019-09-18] MEDS ORDERED: Potassium Chloride 40 MEQ in Sodium Chloride 0.9% 250 ML 250 ML IVPB PRN (02:13)
[2019-09-18] MEDS ORDERED: Potassium Chloride 40 MEQ in Premix Bag 1 BAG IVPB PRN (02:13)
[2019-09-18] MEDS ORDERED: Potassium Phosphate 12 MMOL in Sodium Chloride 0.9% 250 ML 250 ML IV PRN (02:13)
[2019-09-18] MEDS ORDERED: Potassium Phosphate 9 MMOL in Sodium Chloride 0.9% 100 ML IVPB PRN (02:13)
[2019-09-18] MEDS ORDERED: Melatonin 3 MG TAB PO PRN (02:13)
[2019-09-18] MEDS ORDERED: Potassium Chloride 20 MEQ TAB PO PRN (02:13)
[2019-09-18] MEDS ORDERED: Potassium Phosphate 15 MMOL in Sodium Chloride 0.9% 250 ML 250 ML IV PRN (02:13)
[2019-09-18] MEDS ORDERED: PHOS-NAK 1 PKT PACK PO PRN ×2 (02:13)
[2019-09-18 04:20] LABS: #Basophils 0.1 thou/uL (0.0-0.2); #Eosinphils 0.1 thou/uL (0.0-0.7); #Lymphocytes 2.6 thou/uL (1.20-3.40); #Monocytes 1.3 thou/uL (0.11-0.59); %Basophils 0.6 % (0.0-1.0); %Eosinophils 0.6 % (0.0-10.0); %Lymphocytes 21.2 % (21.0-51.0); %Monocytes 10.9 % (0.0-10.0); %Neutrophils 66.7 % (42.0-75.0); Hemoglobin 13.2 g/dL (12.0-16.0); Mean Corpuscular Hemoglobin 32.1 pg (27.0-31.0); Mean Corpuscular Volume 91.6 fL (78.0-98.0); Mean Platelet Volume 7.8 fL (7.4-10.4); Platelet Count 323 thou/uL (130-400); RBC Distribution Width 14.1 % (11.5-14.5); Red Blood Cell (RBC) Count 4.12 mill/uL (4.20-5.40)
[2019-09-18 04:29] LABS: Lactic Acid 1.7 mmol/L (0.5-2.2)
--- NOTE | 2019-09-18 04:40 | HP ---
CHIEF COMPLAINT: Shortness of breath. HISTORY OF PRESENT ILLNESS: The patient is a very pleasant 64-year-old female with a history of non-small cell carcinoma, who is currently on oral chemotherapy, presents to the hospital with sudden onset of shortness of breath. The patient denies any recent fevers or chills. No recent cough than her original baseline cough. She states that she was resting today when she started having shortness of breath sudden onset. However, upon further questioning her, she states that she has been having some worsening shortness of breath gradually for the past 2 to 3 weeks. She reports some orthopnea but denies any PND. She states that she has been pretty significantly short of breath for the past few days, however, got worse today. She normally uses 2 L of oxygen. However, when she came into the ER, she was pretty hypoxic. PAST MEDICAL HISTORY: She has a history of non-small cell carcinoma. She has a history of COPD, also depression. PAST SURGICAL HISTORY: She has had a pericardial drainage. MEDICATIONS: She is on citalopram 40 mg daily, Singulair 10 mg daily, and albuterol as needed. ALLERGIES: SHE IS ALLERGIC TO PENICILLIN. SOCIAL HISTORY: She quit smoking about 6 to 7 years ago. She almost smoked a pack and a half for almost 20 years. Denies any alcohol use or drug use. She lives with her daughter in [facility]. FAMILY HISTORY: Mother at age of 78 with diabetes. Father in the 80s, unknown cause. REVIEW OF SYSTEMS: All negative except for the ones mentioned above in the HPI. PHYSICAL EXAMINATION: VITAL SIGNS: Temperature 98.1, respirations 18, blood pressure 113/64, pulse 81, and O2 saturation 93%. She is on a high-flow. GENERAL: She is awake, alert, and oriented x3. Does not appear in any distress. CV: S1, S2 present. No murmurs, rubs, or gallops. LUNGS: She has diminished breath sounds to her left lower lung area compared to her right. ABDOMEN: Soft and nontender. Bowel sounds are present x2. EXTREMITIES: She does have mild general lower extremity edema. NEUROVASCULAR: There are no focal deficits noted. SKIN: No cuts, lesions, or bruises noted. LABORATORY DATA: WBCs of 16.9, hemoglobin of 15.6, hematocrit of 47.7, her platelets of 456. Chemistry: Sodium of 137, potassium of 4.6, BUN of 15, creatinine of 1.05. Her initial lactic acid was 4.8, then improved to 2.4, calcium was 10.9. Her BNP was 23.3, and her troponin was normal. She did have a CTA which did not show any acute PE. She does have a significant large left pleural effusion, which is significant. EKG, she has some prolonged QTc. ASSESSMENT AND PLAN: The patient is a very pleasant 64-year-old female, presents to the hospital with complaints of shortness of breath. 1. Acute hypoxic respiratory failure, most likely from her new left-sided pleural effusion. She most likely will need a thoracentesis. She will also need cytology and further studies for her thoracentesis. Last time, upon reviewing her records, her pericardial effusion did indicate squamous cell carcinoma. I will hold off on antibiotics. I do not think at this time she requires any antibiotics since she is here only for shortness of breath, she has not had any fevers or chills. 2. Lactic acidosis. This could be most likely secondary to her shortness of breath. She has been trending down with some gentle hydration. Continue some hydration. 3. Mild leukocytosis. Again, we will trend her numbers and continue to monitor. She has not had any fevers and again, I will hold off on antibiotics for now. 4. Deep vein thrombosis prophylaxis. We will put the patient on SCDs and subcu Lovenox. Job ID: [id number]
[2019-09-18] MEDS ORDERED: ALPRAZolam 0.5 MG TAB PO PRN (05:37)
[2019-09-18] MEDS: Sodium Chloride 0.9% 1,000 ML IV SCH (06:54)
[2019-09-18] MEDS: Mometasone 200 MCG/Formoterol 5 MCG 120 PUFF INHALER INH SCH ×2 (07:25→18:58)
[2019-09-18 09:34] VITALS: BMI 31.7
--- NOTE | 2019-09-18 10:29 | CT ---
CT arteriogram chest with IV contrast and 3-D imaging 09/17/2019 performed on emergency basis at 0053 hours HISTORY: Chest pain. Dyspnea. COMPARISON: 06/04/2019. FINDINGS: Agree with the preliminary report by Dr. Chauhan from direct radiology. Extensive malignant disease of the left hilum and mediastinum and the liver. Left pleural fluid has increased significantly. Small amount of pericardial fluid has decreased. Left hilar mass is not very well defined. Lobular adenopathy at the right paratracheal level has enlarged, measuring up to 3.5 cm x 2.9 cm grea test oblique diameters on the axial images. Subcarinal adenopathy now measures up to 3.3 cm x 2.6 cm, enlarged. Additional adenopathy throughout the remainder of the mediastinum. Code QA.
[2019-09-18] MEDS ORDERED: FLU VACC TS2019-20(65YR UP)/PF 180 MCG/0.5 ML SYRINGE IM ONE (10:45)
--- NOTE | 2019-09-18 13:05 | PDOC.EVN ---
Event Note - Event Note Event Note: Inherited patient this morning. Laying comfortably in bed, hemodynamically stable and satting high 90s on 37% FIO2 HFNC (baseline 2L nasal cannula), and has no complaints. CT w/ contrast showing large left pleural effusion. Agree with assessment of previous admitting hospitalist regarding indication for therapeutic and diagnostic thoracentesis, pending ICU evaluation.
[2019-09-18] MEDS: methylPREDNISolone Sod Succ 40 MG VIAL IVP SCH (17:46)
[2019-09-18] MEDS ORDERED: methylPREDNISolone Sod Succ/PF 125 MG/2 ML VIAL IVP SCH (18:00)
--- NOTE | 2019-09-18 19:13 | CON ---
DATE OF CONSULTATION: 09/18/2019 REASON FOR ADMISSION: Increasing shortness of breath, superimposed upon non-small cell carcinoma. HISTORY OF PRESENT ILLNESS: The patient is a 64-year-old woman with a known history of metastatic non-small cell carcinoma, initially diagnosed in 2019. This is superimposed upon significant COPD. The malignancy is ALK positive; therefore, the patient was started on Alectinib and has been reasonably stable until this admission when she presented to the emergency room with increasing shortness of breath. Imaging in the emergency room confirmed the large left upper lobe squamous cell carcinoma with a left hilar mass and marked mediastinal adenopathy. There was minor pericardial fluid. It should be noted that the patient has had a malignant pericardial effusion, which did require a window. Finally, there was a left pleural effusion that had increased in size. She was admitted to the intensive care unit for monitoring and I am asked to see the patient to provide further management and recommendations. PAST MEDICAL HISTORY: ALLERGIES: SHE DESCRIBES SENSITIVITY TO PENICILLIN G. MEDICATIONS: 1. Citalopram. 2. Singulair. 3. Albuterol nebulization. MEDICAL ILLNESS: There is a history of COPD and anxiety. SURGERIES: Her only surgical procedure is a pericardial window performed in 2019. SOCIAL HISTORY: She stopped smoking about 6 to 7 years ago. She has a 20 to 30 pack-year history of smoking. She does not use alcohol or illicit drugs. She lives with her daughter, who is present during the evaluation today. FAMILY HISTORY: Her mother at age 78 with diabetes mellitus. Her father of unknown causes in his 80s. There is no history of hereditary malignancy. REVIEW OF SYSTEMS: Except for that mentioned in history of present illness, she denies significant cardiopulmonary, GI, , musculoskeletal, or neurologic complaints. PHYSICAL EXAMINATION: VITAL SIGNS: Temperature 98.2, pulse 83 and regular, respirations 18, and blood pressure 113/57. GENERAL: The patient is a well-developed and well-nourished woman, in mild distress, lying fairly flat. She is alert, oriented, and cooperative. She is hungry and asking for something to eat. HEENT: The extraocular movements are intact. Pupils equal, round, and reactive to light. NECK: Supple. LUNGS: Few scattered rhonchi and decreased breath sounds anteriorly on the left. CARDIOVASCULAR: Regular rate and rhythm without murmur, rub, gallop, or click. ABDOMEN: No tenderness, organomegaly, masses, bruits, or ascites. EXTREMITIES: No clubbing, cyanosis, or edema. SKIN: Normal. LYMPH: No adenopathy. MUSCULOSKELETAL: No active arthritis. NEUROLOGICAL: No focal findings and the cranial nerves 2 through 12 are grossly intact. LABORATORY DATA: White blood cell count 12.0, hemoglobin 13.2, and platelet count 323,000. The sodium is 136, potassium 4.6, chloride 96, and carbon dioxide 28. Creatinine is 1.05 and BUN 15. Random blood sugar is 119. Calcium is 10.9. IMAGING: See history of present illness. IMPRESSION: 1. Locally advanced and metastatic squamous cell carcinoma of the lung, ALK mutated. 2. Chronic obstructive pulmonary disease. 3. Increasing shortness of breath associated with an enlarging left pleural effusion. RECOMMENDATIONS: The patient will be treated with general supportive measures and intensive care unit support. She will be seen in consultation by Pulmonary Medicine and decision regarding therapeutic thoracentesis will be made. Thanks very much for allowing me to provide more recommendations. Job ID: [id number]
[2019-09-18] MEDS: Citalopram 20 MG TAB PO SCH (20:08)
[2019-09-18] MEDS: Montelukast Sodium 10 mg Tablet PO SCH (20:08)
[2019-09-18] MEDS: Doxycycline 100 MG CAP PO SCH (20:08)
--- NOTE | 2019-09-18 20:56 | CON ---
DATE OF CONSULTATION: 09/18/2019 HISTORY OF PRESENT ILLNESS: Lanette Nunez is a 64-year-old female, who presented with shortness of breath. She has non-small cell carcinoma. She has a left effusion. She was told by her home health nurse that she might have pneumonia. She therefore went to the emergency room. I was consulted because of her presence in the intermediate care unit. She has seen my associate, Dr. Singh. PAST MEDICAL HISTORY: Remarkable for: 1. COPD. 2. History of pericardial window on June 06, 2019. FAMILY HISTORY: Negative for lung disease in early age. REVIEW OF SYSTEMS: Otherwise negative. PHYSICAL EXAMINATION: VITAL SIGNS: She is afebrile, heart rate is 80, blood pressure is 113/67, respiratory rate is in the 20s, and oximetry is 97. HEENT: Pupils are equal. Sclerae are anicteric. NECK: Supple. LUNGS: Remarkable for decreased breath sounds at her left base. HEART: Regular rhythm. S1 and S2 are normal. ABDOMEN: Soft and nontender. EXTREMITIES: Without clubbing, cyanosis, or edema. NEURO: Nonfocal. LABORATORY DATA: Chest x-ray is unchanged from July. IMPRESSION AND PLAN: 1. Non-small cell lung cancer, status post pericardial window, currently being followed by Dr. Coffey. 2. Pleural effusion that was present at the end of last year. I do not feel her effusion is large enough to account for shortness of breath. 3. Underlying chronic obstructive pulmonary disease, which I feel is more likely be contributing to her shortness of breath. I have recommend at this time, we treat her with steroids, nebulizer treatments, etc., and observe her for clinical improvement. I am not convinced that thoracentesis will lead to significant improvement in her clinical status. TIME SPENT: This is a 70-minute consult, 50% of the time spent on the unit coordinating care. Job ID: [id number] [facility]
[2019-09-19] MEDS: Temazepam 15 MG CAP PO PRN ×2 (00:05→23:10)
[2019-09-19] MEDS: methylPREDNISolone Sod Succ 40 MG VIAL IVP SCH ×5 (00:06→23:11)
[2019-09-19] MEDS: Sodium Chloride 0.9% 1,000 ML IV SCH ×2 (02:17→23:11)
[2019-09-19 04:30] LABS: Anion Gap 15 mmol/L (10-20); BUN (Urea Nitrogen) 10 mg/dL (9.8-20.1); Calc. Creatinine Clearance 113 mL/min (70-130); Calcium 9.2 mg/dL (7.8-10.44); Carbon Dioxide 23 mmol/L (23-31); Chloride 105 mmol/L (98-107); Estimated GFR-MDRD 88; Glucose 123 mg/dL (80-115); Potassium 4.5 mmol/L (3.5-5.1); Sodium 138 mmol/L (136-145)
[2019-09-19] MEDS: Mometasone 200 MCG/Formoterol 5 MCG 120 PUFF INHALER INH SCH ×2 (07:16→20:37)
[2019-09-19] MEDS: Doxycycline 100 MG CAP PO SCH ×2 (07:52→20:50)
--- NOTE | 2019-09-19 08:48 | PDOC.HOSPP ---
- Subjective Encounter Date: 09/19/19 Encounter Time: 07:45 Subjective: no overnight events. This morning, breathing about the same on HFNC, short of breath when exerting herself. Otherwise no complaints. - Objective Vital Signs & Weight: Vital Signs (12 hours) Temp Pulse Resp Pulse Ox 09/19/19 08:00 96 09/19/19 07:24 96.3 F L 09/19/19 07:14 78 19 94 L 09/19/19 04:09 98.6 F 09/19/19 00:06 99.2 F Weight Weight 190 lb 3.2 oz Most Recent Monitor Data Heart Rate from ECG 101 NIBP 135/65 NIBP BP-Mean 88 Respiration from ECG 22 SpO2 86 I&O: 09/18/19 09/19/19 09/20/19 06:59 06:59 06:59 Intake Total 1300 Output Total 200 Balance 1100 Result Diagrams: 09/18/19 04:03 09/19/19 03:32 Additional Labs: Accuchecks 09/18/19 11:39 POC Glucose 107 Hospitalist ROS - Review of Systems Constitutional: denies: fever, chills, sweats, weakness, malaise, other Respiratory: reports: SOB with excertion. denies: cough, dry, shortness of breath, hemoptysis, pleuritic pain, sputum, wheezing, other Cardiovascular: denies: chest pain, palpitations, orthopnea, paroxysmal noc. dyspnea, edema, light headedness, other Gastrointestinal: denies: nausea, vomiting, abdominal pain, diarrhea, constipation, melena, hematochezia, other - Medication Medications: Active Medications Generic Name Dose Route Start Last Admin Trade Name Jazielq PRN Reason Stop Dose Admin Albuterol/Ipratropium 3 ml 09/18/19 15:00 09/19/19 07:14 Duoneb NEB 3 ml [id number] KENNETH Administration Citalopram Hydrobromide 40 mg 09/18/19 21:00 09/18/19 20:08 Celexa PO 40 mg HS KENNETH Administration Doxycycline Hyclate 100 mg 09/18/19 21:00 09/19/19 07:52 Vibramycin PO 100 mg BID KENNETH Administration Sodium Chloride 1,000 mls @ 50 mls/hr 09/18/19 05:45 03/15/20 02:17 Normal Saline 0.9% IV 1,000 mls .Q20H KENNETH Administration Methylprednisolone Sodium Succinate 40 mg 09/18/19 18:00 09/19/19 05:59 Solu-Medrol IVP 40 mg Q6HR KENNETH Administration Mometasone Furoate/Formoterol Fumar 2 puff 09/18/19 06:30 09/19/19 07:16 Dulera 200 Mcg/5 Mcg Inhaler INH 2 puff BID-RT KENNETH Administration Montelukast Sodium 10 mg 09/18/19 21:00 09/18/19 20:08 Singulair PO 10 mg HS KENNETH Administration Sodium Chloride 10 ml 09/18/19 21:00 09/19/19 07:49 Flush - Normal Saline IVF Not Given Q12HR KENNETH Temazepam 30 mg 09/18/19 13:13 09/19/19 00:05 Restoril PO 30 mg HSPRN PRN Administration Insomnia - Exam General Appearance: NAD, awake alert Neck: no JVD Heart: RRR, no murmur, no gallops, no rubs Respiratory: no wheezes, no ronchi, rales (right lower field inspiratory rales) , tachypneic (RR 20s; on HFNC FIO2 35%) Respiratory - other findings: left lung: reduced breath sounds throughout, mostly lower-mid skinner; Gastrointestinal: soft, non-tender, non-distended, normal bowel sounds Extremities: no edema Psychiatric: normal affect, normal behavior, A&O x 3 Hosp A/P - Plan #Dyspnea #COPD exacerbation #left pleural effusion Currently satting mid 90s on HFNC 35% CT showing moderate left pleural effusion (CT 05/2019 showed small b/l effusion) per Pulmonology, pleural effusion not likely to explain shortness of breath and no indication for thoracentesis -continue to treat for COPD exacerbation with steroids, doxycyline, and breathing treatments per pulm -continue to try to wean off HFNC #depression -continue citalopram Disposition/PPx DVT PPx: enoxeparin GI PPx: no indication
--- NOTE | 2019-09-19 14:57 | PRG ---
DATE OF SERVICE: 09/19/2019 SUBJECTIVE: Lanette Nunez says she is feeling better, not a lot, but she does feel better than she felt yesterday. OBJECTIVE: VITAL SIGNS: She is afebrile. Blood pressure 114/66, heart rates in the 90s. LUNGS: Distant, clear. HEART: Regular rhythm. ABDOMEN: Soft. LABORATORY DATA: Sodium 138, potassium 4.5, chloride 105, bicarb 23, BUN 10, creatinine 0.67. IMPRESSION AND PLAN: 1. Chronic obstructive pulmonary disease exacerbation. 2. Underlying lung cancer. 3. Small effusion that I do not feel at this time accounts for much for dyspnea. We will continue with current treatment. I met with Dr. Etienne. At the same time, he was meeting with family. We answered all her questions. Job ID: [id number]
[2019-09-19] MEDS: Citalopram 20 MG TAB PO SCH (20:50)
[2019-09-19] MEDS: Montelukast Sodium 10 mg Tablet PO SCH (20:50)
[2019-09-20 04:43] LABS: Anion Gap 15 mmol/L (10-20); BUN (Urea Nitrogen) 9 mg/dL (9.8-20.1); Calc. Creatinine Clearance 111 mL/min (70-130); Calcium 9.4 mg/dL (7.8-10.44); Carbon Dioxide 22 mmol/L (23-31); Chloride 104 mmol/L (98-107); Estimated GFR-MDRD 87; Glucose 121 mg/dL (80-115); Potassium 4.8 mmol/L (3.5-5.1); Sodium 136 mmol/L (136-145)
[2019-09-20] MEDS: methylPREDNISolone Sod Succ 40 MG VIAL IVP SCH ×3 (06:03→18:43)
[2019-09-20] MEDS: Mometasone 200 MCG/Formoterol 5 MCG 120 PUFF INHALER INH SCH ×2 (07:13→18:53)
--- NOTE | 2019-09-20 10:07 | PRG ---
DATE OF SERVICE: 09/20/2019 SUBJECTIVE: Lanette Nunez says she feels a tiny bit better. She is still on high-flow O2. FiO2 is only 30%, however. OBJECTIVE: VITAL SIGNS: She is afebrile, blood pressure 133/77, heart rate is 104. LUNGS: Clear. HEART: Regular rhythm. ABDOMEN: Soft. IMPRESSION: 1. Chronic obstructive pulmonary disease exacerbation. 2. Small pleural effusion. PLAN: Continue with current care. Job ID: [id number]
[2019-09-20] MEDS: Doxycycline 100 MG CAP PO SCH ×2 (10:31→20:58)
[2019-09-20] MEDS: Acetaminophen 325 MG TAB PO PRN (10:31)
[2019-09-20] MEDS: Enoxaparin Sodium 30 MG/0.3 ML SYRINGE SC SCH (10:31)
--- NOTE | 2019-09-20 11:25 | PDOC.MOPN ---
Interval History: no appetite and food tastes bad - Vital Signs Vital Signs: Vital Signs (12 hours) Temp Pulse Resp Pulse Ox 09/20/19 11:13 95 09/20/19 11:09 92 19 95 09/20/19 07:30 92 L 09/20/19 07:27 97.4 F L 09/20/19 07:23 94 L 09/20/19 07:21 83 19 94 L 09/20/19 07:13 84 20 94 L 09/20/19 03:30 97.6 F 09/19/19 23:30 96.7 F L Weight Weight 191 lb 1.6 oz Most Recent Monitor Data Heart Rate from ECG 90 NIBP 120/90 NIBP BP-Mean 100 Respiration from ECG 20 SpO2 96 - Physical Exam General: Alert, Oriented x3, No acute distress HEENT: Atraumatic, PERRLA, EOMI, Mucous membr. moist/pink Lungs: Other (wheeze) Cardiovascular: Regular rate, Normal S1, Normal S2, No murmurs, Gallops, Rubs Abdomen: Normal bowel sounds, Soft, No tenderness, No hepatospenomegaly, No masses Extremities: No clubbing, No cyanosis, No edema, Normal pulses, No tenderness/ swelling Skin: No rashes, No breakdown, No significant lesion Neurological: Normal gait, Normal speech, Strength at 5/5 X4 ext, Normal tone, Sensation intact, Cranial nerves 3-12 NL, Reflexes 2+ Psych/Mental Status: Mental status NL, Mood NL - Labs Result Diagrams: 09/18/19 04:03 09/20/19 03:39 Lab results: Laboratory Results - last 24 hr 09/20/19 03:39: Sodium 136, Potassium 4.8, Chloride 104, Carbon Dioxide 22 L, Anion Gap 15, BUN 9 L, Creatinine 0.68, Estimated GFR (MDRD) 87, Glucose 121 H, Calcium 9.4 Status: lab reviewed by me A/P - Problem (1) Metastatic lung cancer (metastasis from lung to other site) Current Visit: No Code(s): C34.90 - MALIGNANT NEOPLASM OF UNSP PART OF UNSP BRONCHUS OR LUNG Status: Chronic (2) COPD exacerbation Current Visit: No Code(s): J44.1 - CHRONIC OBSTRUCTIVE PULMONARY DISEASE W ( ACUTE) EXACERBATION Status: Resolved - Plan Plan: 1. add ensure 2. continue O2 per Dr. Strickland. 3. continue oral chemo
--- NOTE | 2019-09-20 18:42 | PDOC.HOSPP ---
- Subjective Encounter Date: 09/20/19 Encounter Time: 08:30 Subjective: overnight, had shortness of breath episode that improved with respiratory treatment. this morning, laying comfortably in bed and has no complaints. Endorses that breathing is about the same as yesterday - Objective Vital Signs & Weight: Vital Signs (12 hours) Temp Pulse Resp Pulse Ox 09/20/19 15:29 96.5 F L 09/20/19 14:43 87 21 H 92 L 09/20/19 11:49 97.0 F L 09/20/19 11:13 95 09/20/19 11:09 92 19 95 09/20/19 07:30 92 L 09/20/19 07:27 97.4 F L 09/20/19 07:23 94 L 09/20/19 07:21 83 19 94 L 09/20/19 07:13 84 20 94 L Weight Weight 191 lb 1.6 oz Most Recent Monitor Data Heart Rate from ECG 87 NIBP 157/96 NIBP BP-Mean 116 Respiration from ECG 25 SpO2 90 I&O: 09/19/19 09/20/19 09/21/19 06:59 06:59 06:59 Intake Total 1300 1700 1350 Output Total 200 900 425 Balance 1100 800 925 Result Diagrams: 09/18/19 04:03 09/20/19 03:39 Hospitalist ROS - Review of Systems Constitutional: denies: fever, chills, sweats, weakness, malaise, other Respiratory: reports: SOB with excertion. denies: cough, dry, shortness of breath, hemoptysis, pleuritic pain, sputum, wheezing, other Cardiovascular: denies: chest pain, palpitations, orthopnea, paroxysmal noc. dyspnea, edema, light headedness Gastrointestinal: denies: nausea, vomiting, abdominal pain, diarrhea - Medication Medications: Active Medications Generic Name Dose Route Start Last Admin Trade Name Freq PRN Reason Stop Dose Admin Acetaminophen 650 mg 09/20/19 10:24 09/20/19 10:31 Tylenol PO 650 mg Q6H PRN Administration Headache/Fever or Pain Albuterol/Ipratropium 3 ml 09/18/19 15:00 09/20/19 14:43 Duoneb NEB 3 ml [id number] KENNETH Administration Citalopram Hydrobromide 40 mg 09/18/19 21:00 09/19/19 20:50 Celexa PO 40 mg HS KENNETH Administration Doxycycline Hyclate 100 mg 09/18/19 21:00 09/20/19 10:31 Vibramycin PO 100 mg BID KENNETH Administration Enoxaparin Sodium 30 mg 09/20/19 09:00 09/20/19 10:31 Lovenox SC 30 mg 0900 KENNETH Administration Sodium Chloride 1,000 mls @ 50 mls/hr 09/18/19 05:45 09/19/19 23:11 Normal Saline 0.9% IV 1,000 mls .Q20H KENNETH Administration Methylprednisolone Sodium Succinate 40 mg 09/18/19 18:00 09/20/19 13:21 Solu-Medrol IVP 40 mg Q6HR KENNETH Administration Mometasone Furoate/Formoterol Fumar 2 puff 09/18/19 06:30 09/20/19 07:13 Dulera 200 Mcg/5 Mcg Inhaler INH 2 puff BID-RT KENNETH Administration Montelukast Sodium 10 mg 09/18/19 21:00 09/19/19 20:50 Singulair PO 10 mg HS KENNETH Administration Sodium Chloride 10 ml 09/18/19 21:00 09/20/19 10:32 Flush - Normal Saline IVF 10 ml Q12HR KENNETH Administration Temazepam 30 mg 09/18/19 13:13 09/19/19 23:10 Restoril PO 30 mg HSPRN PRN Administration Insomnia - Exam General Appearance: NAD, awake alert Heart: RRR, no murmur, no gallops, no rubs Heart - other findings: rate increases to 110s when patient sits up for lung exam Respiratory: no wheezes, no rales, no ronchi Respiratory - other findings: reduced breath sounds left lung mostly mid and lower skinner Gastrointestinal: soft, non-tender, non-distended, normal bowel sounds Extremities: no edema Psychiatric: normal affect, normal behavior, A&O x 3 Hosp A/P - Plan #Dyspnea #COPD exacerbation #left pleural effusion No significant change in breathing or oxygen requirement since admission CT showing moderate left pleural effusion (CT 05/2019 showed small b/l effusion) per Pulmonology, pleural effusion not likely to explain shortness of breath and no indication for thoracentesis -continue to treat for COPD exacerbation with steroids, doxycyline, and breathing treatments per pulm -continue to try to wean off HFNC #depression -continue citalopram Disposition/PPx DVT PPx: enoxeparin GI PPx: no indication
[2019-09-20] MEDS: Sodium Chloride 0.9% 1,000 ML IV SCH (18:43)
[2019-09-20] MEDS: Montelukast Sodium 10 mg Tablet PO SCH (20:58)
[2019-09-20] MEDS: Citalopram 20 MG TAB PO SCH (20:58)
[2019-09-21] MEDS: Temazepam 15 MG CAP PO PRN (00:07)
[2019-09-21] MEDS: methylPREDNISolone Sod Succ 40 MG VIAL IVP SCH ×4 (00:07→18:41)
[2019-09-21 04:12] LABS: #Lymphocytes 1.3 thou/uL (1.20-3.40); #Monocytes 0.4 thou/uL (0.11-0.59); #Neutrophils 9.3 thou/uL (1.40-6.50); %Basophils 0.1 % (0.0-1.0); %Eosinophils 0.1 % (0.0-10.0); %Lymphocytes 11.7 % (21.0-51.0); %Monocytes 3.8 % (0.0-10.0); %Neutrophils 84.4 % (42.0-75.0); Hemoglobin 12.8 g/dL (12.0-16.0); Mean Corpuscular HGB CONC 34.7 g/dL (32.0-36.0); Mean Corpuscular Hemoglobin 31.9 pg (27.0-31.0); Mean Corpuscular Volume 91.9 fL (78.0-98.0); Platelet Count 363 thou/uL (130-400); RBC Distribution Width 14.1 % (11.5-14.5); Red Blood Cell (RBC) Count 4.01 mill/uL (4.20-5.40); White Blood Cell (WBC) Count 11.1 thou/uL (4.8-10.8)
[2019-09-21] MEDS: Mometasone 200 MCG/Formoterol 5 MCG 120 PUFF INHALER INH SCH ×2 (06:41→18:51)
[2019-09-21] MEDS: Doxycycline 100 MG CAP PO SCH ×2 (10:37→20:52)
[2019-09-21] MEDS: Enoxaparin Sodium 30 MG/0.3 ML SYRINGE SC SCH (10:37)
[2019-09-21] MEDS: Acetaminophen 325 MG TAB PO PRN (10:40)
--- NOTE | 2019-09-21 15:40 | PRG ---
DATE OF SERVICE: SUBJECTIVE: Ms. Nunez is a little bit better. OBJECTIVE: VITAL SIGNS: Heart rate is 80, respiratory rate is 20, oximetry is 93. We are converting her from high-flow to a nasal cannula today. Blood pressure 157/80. LUNGS: Still has decreased breath sounds at her left base. HEART: Regular rhythm. ABDOMEN: Soft. IMPRESSION: 1. Chronic obstructive pulmonary disease exacerbation. 2. Chronic left-sided effusion related to malignancy. 3. Left hilar mass and increasing interstitial markings on the left, recently started on new chemo. At this point in time, I do not feel thoracentesis will improve her symptoms. Deconditioning is the large part of her shortness of breath. She is slowly improving. We will continue current course. Job ID: [id number]
[2019-09-21] MEDS: Sodium Chloride 0.9% 1,000 ML IV SCH (16:24)
[2019-09-21] MEDS: Montelukast Sodium 10 mg Tablet PO SCH (20:52)
[2019-09-21] MEDS: Citalopram 20 MG TAB PO SCH (20:53)
[2019-09-22] MEDS: Temazepam 15 MG CAP PO PRN ×2 (00:20→23:44)
[2019-09-22] MEDS: methylPREDNISolone Sod Succ 40 MG VIAL IVP SCH ×5 (01:49→23:44)
--- NOTE | 2019-09-22 08:05 | PDOC.HOSPP ---
- Subjective Encounter Date: 09/21/19 Encounter Time: 11:55 Subjective: pt up in bed still is very sob. she continues to be on high flow oxygen. - Objective Vital Signs & Weight: Vital Signs (12 hours) Temp 09/22/19 03:38 97.4 F L 09/21/19 23:34 97.4 F L Weight Weight 192 lb Most Recent Monitor Data Heart Rate from ECG 97 NIBP 151/106 NIBP BP-Mean 121 Respiration from ECG 26 SpO2 87 I&O: 09/21/19 09/22/19 09/23/19 06:59 06:59 06:59 Intake Total 2450 1560 Output Total 1175 1100 Balance 1275 460 Result Diagrams: 09/21/19 03:53 09/20/19 03:39 Hospitalist ROS - Review of Systems Respiratory: reports: shortness of breath Cardiovascular: denies: chest pain, palpitations, orthopnea, paroxysmal noc. dyspnea, edema, light headedness, other Gastrointestinal: denies: nausea, vomiting, abdominal pain, diarrhea, constipation, melena, hematochezia, other Genitourinary: denies: dysuria, frequency, incontinence, hematuria, retention, other - Medication Medications: Active Medications Generic Name Dose Route Start Last Admin Trade Name Freq PRN Reason Stop Dose Admin Acetaminophen 650 mg 09/20/19 10:24 09/21/19 10:40 Tylenol PO 650 mg Q6H PRN Administration Headache/Fever or Pain Albuterol/Ipratropium 3 ml 09/18/19 15:00 09/21/19 18:38 Duoneb NEB 3 ml [id number] KENNETH Administration Citalopram Hydrobromide 40 mg 09/18/19 21:00 09/21/19 20:53 Celexa PO 40 mg HS KENNETH Administration Doxycycline Hyclate 100 mg 09/18/19 21:00 09/21/19 20:52 Vibramycin PO 100 mg BID KENNETH Administration Enoxaparin Sodium 30 mg 09/20/19 09:00 09/21/19 10:37 Lovenox SC 30 mg 0900 KENNETH Administration Methylprednisolone Sodium Succinate 40 mg 09/18/19 18:00 09/22/19 06:12 Solu-Medrol IVP 40 mg Q6HR KENNETH Administration Mometasone Furoate/Formoterol Fumar 2 puff 09/18/19 06:30 09/21/19 18:51 Dulera 200 Mcg/5 Mcg Inhaler INH 2 puff BID-RT KENNETH Administration Montelukast Sodium 10 mg 09/18/19 21:00 09/21/19 20:52 Singulair PO 10 mg HS KENNETH Administration Sodium Chloride 10 ml 09/18/19 21:00 09/21/19 20:53 Flush - Normal Saline IVF 10 ml Q12HR KENNETH Administration Temazepam 30 mg 09/18/19 13:13 09/22/19 00:20 Restoril PO 30 mg HSPRN PRN Administration Insomnia - Exam Neck: negative: supple, symmetric, no JVD, no thyromegaly, no lymphadenopathy, no carotid bruit, JVD Heart: negative: RRR, no murmur, no gallops, no rubs, normal peripheral pulses, irregular, diminshed peripheral pulses, murmur present, II/IV, III/IV Respiratory - other findings: decrease breath sounds to left lung Gastrointestinal: negative: soft, non-tender, non-distended, normal bowel sounds , no palpable masses, no hepatomegaly, no splenomegaly, no bruit, no guarding, no rigidity, tender to palpation, distended, diminished bowl sounds, voluntary guarding Extremities: negative: no cyanosis, no clubbing, no edema, 1+ LE edema, 2+ LE edema, clubbing Hosp A/P (1) COPD exacerbation Code(s): J44.1 - CHRONIC OBSTRUCTIVE PULMONARY DISEASE W (ACUTE) EXACERBATION Status: Acute (2) Pericardial effusion Code(s): I31.3 - PERICARDIAL EFFUSION (NONINFLAMMATORY) Status: Chronic (3) Depression Code(s): F32.9 - MAJOR DEPRESSIVE DISORDER, SINGLE EPISODE, UNSPECIFIED Status : Chronic (4) Metastatic lung cancer (metastasis from lung to other site) Code(s): C34.90 - MALIGNANT NEOPLASM OF UNSP PART OF UNSP BRONCHUS OR LUNG Status: Chronic (5) Pleural effusion Code(s): J90 - PLEURAL EFFUSION, NOT ELSEWHERE CLASSIFIED Status: Acute - Plan pt's left pleural effusion is a moderate effusion compared to her previous ct chest. she has been her 3 days and continues to be sob and on high flow. Recommend thoracentesis but pulmonary does not feel this will help her sob. will continue to follow the patient.
[2019-09-22] MEDS: Mometasone 200 MCG/Formoterol 5 MCG 120 PUFF INHALER INH SCH ×2 (08:10→19:00)
[2019-09-22] MEDS: Enoxaparin Sodium 30 MG/0.3 ML SYRINGE SC SCH (10:34)
[2019-09-22] MEDS: Doxycycline 100 MG CAP PO SCH ×2 (10:34→20:33)
--- NOTE | 2019-09-22 11:43 | PDOC.MOPN ---
Interval History: breathing improved, no on nasal cannula - Vital Signs Vital Signs: Vital Signs (12 hours) Temp Pulse Resp Pulse Ox 09/22/19 10:30 95 21 H 95 09/22/19 10:20 97.7 F 09/22/19 08:09 95 20 94 L 09/22/19 08:00 94 L 09/22/19 03:38 97.4 F L Weight Weight 192 lb Most Recent Monitor Data Heart Rate from ECG 101 NIBP 125/83 NIBP BP-Mean 97 Respiration from ECG 21 SpO2 95 - Physical Exam General: Alert, Oriented x3, No acute distress HEENT: Atraumatic, PERRLA, EOMI, Mucous membr. moist/pink Lungs: Other (diminished) Cardiovascular: Regular rate, Normal S1, Normal S2, No murmurs, Gallops, Rubs Abdomen: Normal bowel sounds, Soft, No tenderness, No hepatospenomegaly, No masses Extremities: No clubbing, No cyanosis, No edema, Normal pulses, No tenderness/ swelling Skin: No rashes, No breakdown, No significant lesion Neurological: Normal gait, Normal speech, Strength at 5/5 X4 ext, Normal tone, Sensation intact, Cranial nerves 3-12 NL, Reflexes 2+ - Labs Result Diagrams: 09/21/19 03:53 09/20/19 03:39 Status: lab reviewed by me A/P - Problem (1) Metastatic lung cancer (metastasis from lung to other site) Current Visit: No Code(s): C34.90 - MALIGNANT NEOPLASM OF UNSP PART OF UNSP BRONCHUS OR LUNG Status: Chronic (2) COPD exacerbation Current Visit: No Code(s): J44.1 - CHRONIC OBSTRUCTIVE PULMONARY DISEASE W ( ACUTE) EXACERBATION Status: Acute - Plan Plan: 1. resume home chemo medication 2. supportive care 3. CM for dc planning, patient states daughter on quarantine for exposure to virus
--- NOTE | 2019-09-22 15:05 | PRG ---
DATE OF SERVICE: 09/22/2019 SUBJECTIVE: Lanette Nunez is weak, but she is feeling better. OBJECTIVE: VITAL SIGNS: Stable. She is afebrile. Heart rate 95, respiratory rate 21, blood pressure 125/83, oxygen saturation 955 on 3 liters nasal cannula. LUNGS: Remarkable decreased breath sounds at the base. HEART: Regular rhythm. ABDOMEN: Soft, nontender. IMPRESSION: 1. Chronic obstructive pulmonary disease exacerbation. 2. Lung cancer. 3. Small left pleural effusion , weakness and deconditioning . Job ID: [id number] [facility]
--- NOTE | 2019-09-22 17:24 | PDOC.HOSPP ---
- Subjective Encounter Date: 09/22/19 Encounter Time: 11:55 Subjective: pt up in bed states her sob is better but she cannot speak full sentence. - Objective Vital Signs & Weight: Vital Signs (12 hours) Temp Pulse Resp Pulse Ox 09/22/19 13:55 91 19 95 09/22/19 12:21 98.2 F 09/22/19 10:30 95 21 H 95 09/22/19 10:20 97.7 F 09/22/19 08:09 95 20 94 L 09/22/19 08:00 94 L Weight Weight 192 lb Most Recent Monitor Data Heart Rate from ECG 81 NIBP 129/67 NIBP BP-Mean 87 Respiration from ECG 20 SpO2 93 I&O: 09/21/19 09/22/19 09/23/19 06:59 06:59 06:59 Intake Total 2450 1560 Output Total 1175 1100 Balance 1275 460 Result Diagrams: 09/21/19 03:53 09/20/19 03:39 Hospitalist ROS - Review of Systems Respiratory: reports: shortness of breath Cardiovascular: denies: chest pain, palpitations, orthopnea, paroxysmal noc. dyspnea, edema, light headedness, other Gastrointestinal: denies: nausea, vomiting, abdominal pain, diarrhea, constipation, melena, hematochezia, other Genitourinary: denies: dysuria, frequency, incontinence, hematuria, retention, other - Medication Medications: Active Medications Generic Name Dose Route Start Last Admin Trade Name Freq PRN Reason Stop Dose Admin Acetaminophen 650 mg 09/20/19 10:24 09/21/19 10:40 Tylenol PO 650 mg Q6H PRN Administration Headache/Fever or Pain Albuterol/Ipratropium 3 ml 09/18/19 15:00 09/22/19 13:55 Duoneb NEB 3 ml [id number] KENNETH Administration Citalopram Hydrobromide 40 mg 09/18/19 21:00 09/21/19 20:53 Celexa PO 40 mg HS KENNETH Administration Doxycycline Hyclate 100 mg 09/18/19 21:00 09/22/19 10:34 Vibramycin PO 100 mg BID KENNETH Administration Enoxaparin Sodium 30 mg 09/20/19 09:00 09/22/19 10:34 Lovenox SC 30 mg 0900 KENNETH Administration Methylprednisolone Sodium Succinate 40 mg 09/18/19 18:00 09/22/19 11:30 Solu-Medrol IVP 40 mg Q6HR KENNETH Administration Mometasone Furoate/Formoterol Fumar 2 puff 09/18/19 06:30 09/22/19 08:10 Dulera 200 Mcg/5 Mcg Inhaler INH 2 puff BID-RT KENNETH Administration Montelukast Sodium 10 mg 09/18/19 21:00 09/21/19 20:52 Singulair PO 10 mg HS KENNETH Administration Sodium Chloride 10 ml 09/18/19 21:00 09/22/19 10:34 Flush - Normal Saline IVF 10 ml Q12HR KENNETH Administration Temazepam 30 mg 09/18/19 13:13 09/22/19 00:20 Restoril PO 30 mg HSPRN PRN Administration Insomnia - Exam Neck: negative: supple, symmetric, no JVD, no thyromegaly, no lymphadenopathy, no carotid bruit, JVD Heart: negative: RRR, no murmur, no gallops, no rubs, normal peripheral pulses, irregular, diminshed peripheral pulses, murmur present, II/IV, III/IV Respiratory - other findings: decrease breath sounds to left lung Gastrointestinal: negative: soft, non-tender, non-distended, normal bowel sounds , no palpable masses, no hepatomegaly, no splenomegaly, no bruit, no guarding, no rigidity, tender to palpation, distended, diminished bowl sounds, voluntary guarding Hosp A/P (1) COPD exacerbation Code(s): J44.1 - CHRONIC OBSTRUCTIVE PULMONARY DISEASE W (ACUTE) EXACERBATION Status: Acute (2) Pericardial effusion Code(s): I31.3 - PERICARDIAL EFFUSION (NONINFLAMMATORY) Status: Chronic (3) Depression Code(s): F32.9 - MAJOR DEPRESSIVE DISORDER, SINGLE EPISODE, UNSPECIFIED Status : Chronic (4) Metastatic lung cancer (metastasis from lung to other site) Code(s): C34.90 - MALIGNANT NEOPLASM OF UNSP PART OF UNSP BRONCHUS OR LUNG Status: Chronic (5) Pleural effusion Code(s): J90 - PLEURAL EFFUSION, NOT ELSEWHERE CLASSIFIED Status: Acute - Plan pt's left pleural effusion is a moderate effusion compared to her previous ct chest. she has been her 3 days and continues to be sob and on high flow. Recommend thoracentesis but pulmonary does not feel this will help her sob. will continue to follow the patient. 09/21 pt now is on 3L [place], she still appears very sob. will continue to monitor. Per pulmoanry no need for throacentesis. she is on doxy.
[2019-09-22] MEDS: Citalopram 20 MG TAB PO SCH (20:33)
[2019-09-22] MEDS: Montelukast Sodium 10 mg Tablet PO SCH (20:34)
[2019-09-23] MEDS: methylPREDNISolone Sod Succ 40 MG VIAL IVP SCH ×4 (05:35→23:55)
[2019-09-23] MEDS: Mometasone 200 MCG/Formoterol 5 MCG 120 PUFF INHALER INH SCH ×2 (07:38→18:33)
[2019-09-23] MEDS: Enoxaparin Sodium 30 MG/0.3 ML SYRINGE SC SCH (08:30)
[2019-09-23] MEDS: Doxycycline 100 MG CAP PO SCH ×2 (08:31→21:07)
--- NOTE | 2019-09-23 11:16 | RAD ---
Chest one view: HISTORY: Stage IV lung cancer, patient receiving chemotherapy COMPARISON: 09/17/2019 FINDINGS: Again noted is a large abnormal opacity in the left hilar and upper lobe region with more confluent a ppearing density in the left upper lobe evidence for progressive postobstructive left upper lobe atelectasis. Moderate left pleural effusion. Widened mediastinum evidence for mediastinal adenopathy. Minimal increased markings in the right lung IMPRESSION: Progressive abnormal opacity in the left hilar and left upper lobe region in part related to tumor ma ss as well as in part related to worsening postobstructive atelectasis. Stable to minimally increasing left pleural effusion. Evidence for mediastinal adenopathy. Stable joser oberto earing right chest.
[2019-09-23] MEDS: Acetaminophen 325 MG TAB PO PRN (12:19)
--- NOTE | 2019-09-23 18:22 | PDOC.HOSPP ---
- Subjective Encounter Date: 09/23/19 Encounter Time: 10:45 Subjective: pt up in bed states that feels better. - Objective Vital Signs & Weight: Vital Signs (12 hours) Temp Pulse Pulse Pulse Resp BP BP 09/23/19 15:09 82 24 H 09/23/19 15:05 97.5 F L 09/23/19 14:20 85 86 106/67 121/79 09/23/19 14:16 09/23/19 11:23 97.4 F L 09/23/19 11:17 92 23 H 09/23/19 08:00 09/23/19 07:39 85 20 09/23/19 07:23 96.2 F L BP Pulse Ox Pulse Ox Pulse Ox 09/23/19 15:09 09/23/19 15:05 09/23/19 14:20 94 L 89 L 09/23/19 14:16 106/67 09/23/19 11:23 09/23/19 11:17 09/23/19 08:00 96 09/23/19 07:39 09/23/19 07:23 Weight Weight 190 lb 11.2 oz Most Recent Monitor Data Heart Rate from ECG 81 NIBP 109/57 NIBP BP-Mean 74 Respiration from ECG 20 SpO2 94 I&O: 09/22/19 09/23/19 09/24/19 06:59 06:59 06:59 Intake Total 1560 1025 Output Total 1100 325 250 Balance 460 700 -250 Result Diagrams: 09/21/19 03:53 09/20/19 03:39 Hospitalist ROS - Review of Systems Respiratory: reports: shortness of breath Cardiovascular: denies: chest pain, palpitations, orthopnea, paroxysmal noc. dyspnea, edema, light headedness, other Gastrointestinal: denies: nausea, vomiting, abdominal pain, diarrhea, constipation, melena, hematochezia, other Genitourinary: denies: dysuria, frequency, incontinence, hematuria, retention, other Musculoskeletal: denies: neck pain, shoulder pain, arm pain, back pain, hand pain, leg pain, foot pain, other - Medication Medications: Active Medications Generic Name Dose Route Start Last Admin Trade Name Freq PRN Reason Stop Dose Admin Acetaminophen 650 mg 09/20/19 10:24 09/23/19 12:19 Tylenol PO 650 mg Q6H PRN Administration Headache/Fever or Pain Albuterol/Ipratropium 3 ml 09/18/19 15:00 09/23/19 15:09 Duoneb NEB 3 ml [id number] KENNETH Administration Citalopram Hydrobromide 40 mg 09/18/19 21:00 09/22/19 20:33 Celexa PO 40 mg HS KENNETH Administration Doxycycline Hyclate 100 mg 09/18/19 21:00 09/23/19 08:31 Vibramycin PO 100 mg BID KENNETH Administration Enoxaparin Sodium 30 mg 09/20/19 09:00 09/23/19 08:30 Lovenox SC 30 mg 0900 KENNETH Administration Methylprednisolone Sodium Succinate 40 mg 09/18/19 18:00 09/23/19 17:17 Solu-Medrol IVP 40 mg Q6HR KENNETH Administration Mometasone Furoate/Formoterol Fumar 2 puff 09/18/19 06:30 09/23/19 07:38 Dulera 200 Mcg/5 Mcg Inhaler INH 2 puff BID-RT KENNETH Administration Montelukast Sodium 10 mg 09/18/19 21:00 09/22/19 20:34 Singulair PO 10 mg HS KENNETH Administration Sodium Chloride 10 ml 09/18/19 21:00 09/23/19 08:31 Flush - Normal Saline IVF 10 ml Q12HR KENNETH Administration Sodium Chloride 10 ml 09/18/19 13:45 09/22/19 23:44 Flush - Normal Saline IVF 10 ml PRN PRN Administration Saline Flush Temazepam 30 mg 09/18/19 13:13 09/22/19 23:44 Restoril PO 30 mg HSPRN PRN Administration Insomnia - Exam ENT: negative: normocephalic atraumatic, no oropharyngeal lesions, moist mucosa , dry oral mucosa Neck: negative: supple, symmetric, no JVD, no thyromegaly, no lymphadenopathy, no carotid bruit, JVD Heart: negative: RRR, no murmur, no gallops, no rubs, normal peripheral pulses, irregular, diminshed peripheral pulses, murmur present, II/IV, III/IV Respiratory: rhonchi Respiratory - other findings: decrease breath sound to left lung Gastrointestinal: negative: soft, non-tender, non-distended, normal bowel sounds , no palpable masses, no hepatomegaly, no splenomegaly, no bruit, no guarding, no rigidity, tender to palpation, distended, diminished bowl sounds, voluntary guarding Hosp A/P (1) COPD exacerbation Code(s): J44.1 - CHRONIC OBSTRUCTIVE PULMONARY DISEASE W (ACUTE) EXACERBATION Status: Acute (2) Pericardial effusion Code(s): I31.3 - PERICARDIAL EFFUSION (NONINFLAMMATORY) Status: Chronic (3) Depression Code(s): F32.9 - MAJOR DEPRESSIVE DISORDER, SINGLE EPISODE, UNSPECIFIED Status : Chronic (4) Metastatic lung cancer (metastasis from lung to other site) Code(s): C34.90 - MALIGNANT NEOPLASM OF UNSP PART OF UNSP BRONCHUS OR LUNG Status: Chronic (5) Pleural effusion Code(s): J90 - PLEURAL EFFUSION, NOT ELSEWHERE CLASSIFIED Status: Acute - Plan pt's left pleural effusion is a moderate effusion compared to her previous ct chest. she has been her 3 days and continues to be sob and on high flow. Recommend thoracentesis but pulmonary does not feel this will help her sob. will continue to follow the patient. 09/21 pt now is on 3L [place], she still appears very sob. will continue to monitor. Per pulmoanry no need for throacentesis. she is on doxy. 09/22 will order cxr will monitor. will continue doxy for her. PT has been ordered for her. she is on 3L nc. will continue to monitor.
[2019-09-23] MEDS: ALECTINIB 150 MG PO SCH ×2 (21:07→21:21)
[2019-09-23] MEDS: Montelukast Sodium 10 mg Tablet PO SCH (21:07)
[2019-09-23] MEDS: Citalopram 20 MG TAB PO SCH (21:07)
[2019-09-23] MEDS: Temazepam 15 MG CAP PO PRN (23:55)
--- NOTE | 2019-09-24 06:03 | PRG ---
DATE OF SERVICE: 09/23/2019 SUBJECTIVE: Lanette Nunez says she is finally feeling better. OBJECTIVE: VITAL SIGNS: She is afebrile, heart rate stable, respiratory rate is 23, blood pressure stable LUNGS: Remarkable for decreased breath sounds at the left base. HEART: Regular rhythm. ABDOMEN: Soft. EXTREMITIES: Without edema. LABORATORY DATA: White count 11.1 two days ago. Electrolytes have not been repeated. IMPRESSION: 1. Chronic obstructive pulmonary disease exacerbation, slowly getting better. 2. Lung cancer, clinically stable. Due for her next round of chemo. Her radiographic abnormalities are likely related to her malignancy. Management will not be changed by thoracentesis at this time as long she is stable. We will discuss treatment with the oncologist. Job ID: [id number] MTDD
[2019-09-24] MEDS: methylPREDNISolone Sod Succ 40 MG VIAL IVP SCH ×4 (06:25→23:50)
[2019-09-24] MEDS: Mometasone 200 MCG/Formoterol 5 MCG 120 PUFF INHALER INH SCH ×2 (07:53→18:40)
[2019-09-24] MEDS: ALECTINIB 150 MG PO SCH ×2 (08:00→20:00)
[2019-09-24] MEDS: Doxycycline 100 MG CAP PO SCH ×2 (09:03→20:00)
[2019-09-24] MEDS: Enoxaparin Sodium 30 MG/0.3 ML SYRINGE SC SCH (09:04)
--- NOTE | 2019-09-24 12:10 | PRG ---
DATE OF SERVICE: 09/24/2019 SUBJECTIVE: Lanette Nunez says she feels almost back to normal. OBJECTIVE: VITAL SIGNS: She is afebrile, heart rate is 80, respiratory rate is 18, and oximetry is 99% on 3 L. LUNGS: Remarkable for decreased breath sounds on the left. Right lung is clear. HEART: Regular rhythm. ABDOMEN: Soft. LABORATORY DATA: No new lab. IMPRESSION: 1. Chronic obstructive pulmonary disease exacerbation. 2. Chronic left pleural effusion. It is likely malignant. She is clinically improved. If she can ambulate, she can probably go home within 24 hours. She will likely need oxygen at home if she does not have it. Job ID: [id number] MTDD
--- NOTE | 2019-09-24 16:41 | PDOC.HOSPP ---
- Subjective Encounter Date: 09/24/19 Encounter Time: 09:40 Subjective: Pt seen for followup re: COPD exacerbation. States she feels better. - Objective Vital Signs & Weight: Vital Signs (12 hours) Temp Pulse Pulse Pulse Resp BP BP 09/24/19 15:30 96.9 F L 09/24/19 15:13 80 18 09/24/19 14:00 92 88 120/92 H 106/62 09/24/19 11:31 97.8 F 09/24/19 10:44 86 18 09/24/19 08:00 09/24/19 07:53 09/24/19 07:48 80 18 09/24/19 07:32 96.9 F L Pulse Ox Pulse Ox Pulse Ox 09/24/19 15:30 09/24/19 15:13 99 09/24/19 14:00 87 L 94 L 09/24/19 11:31 09/24/19 10:44 94 L 09/24/19 08:00 98 09/24/19 07:53 99 09/24/19 07:48 09/24/19 07:32 Weight Weight 193 lb 3.2 oz Most Recent Monitor Data Heart Rate from ECG 76 NIBP 125/60 NIBP BP-Mean 81 Respiration from ECG 19 SpO2 98 I&O: 09/23/19 09/24/19 09/25/19 06:59 06:59 06:59 Intake Total 1025 415 Output Total 325 625 Balance 700 -210 Result Diagrams: 09/21/19 03:53 09/20/19 03:39 Additional Labs: Labs and MARs reviewed by me EKG Reviewed by me: Yes (tele: NSR) Hospitalist ROS - Review of Systems Respiratory: reports: SOB with excertion Cardiovascular: denies: chest pain, palpitations, orthopnea, paroxysmal noc. dyspnea, edema, light headedness Gastrointestinal: denies: nausea, vomiting, abdominal pain, diarrhea, constipation, melena, hematochezia - Medication Medications: Active Medications Generic Name Dose Route Start Last Admin Trade Name Freq PRN Reason Stop Dose Admin Acetaminophen 650 mg 09/20/19 10:24 09/23/19 12:19 Tylenol PO 650 mg Q6H PRN Administration Headache/Fever or Pain Albuterol/Ipratropium 3 ml 09/18/19 15:00 09/24/19 15:13 Duoneb NEB 3 ml [id number] KENNETH Administration Citalopram Hydrobromide 40 mg 09/18/19 21:00 09/23/19 21:07 Celexa PO 40 mg HS KENNETH Administration Doxycycline Hyclate 100 mg 09/18/19 21:00 09/24/19 09:03 Vibramycin PO 100 mg BID KENNETH Administration Enoxaparin Sodium 30 mg 09/20/19 09:00 09/24/19 09:04 Lovenox SC 30 mg 0900 KENNETH Administration Methylprednisolone Sodium Succinate 40 mg 09/18/19 18:00 09/24/19 13:06 Solu-Medrol IVP 40 mg Q6HR KENNETH Administration Mometasone Furoate/Formoterol Fumar 2 puff 09/18/19 06:30 09/24/19 07:53 Dulera 200 Mcg/5 Mcg Inhaler INH 2 puff BID-RT KENNETH Administration Montelukast Sodium 10 mg 09/18/19 21:00 09/23/19 21:07 Singulair PO 10 mg HS KENNETH Administration Alectinib 150mg Cap 0 each 09/22/19 17:00 09/24/19 08:00 PO 1 each BID-WM KENNETH Administration Sodium Chloride 10 ml 09/18/19 21:00 09/24/19 09:05 Flush - Normal Saline IVF 10 ml Q12HR KENNETH Administration Sodium Chloride 10 ml 09/18/19 13:45 09/22/19 23:44 Flush - Normal Saline IVF 10 ml PRN PRN Administration Saline Flush Temazepam 30 mg 09/18/19 13:13 09/23/19 23:55 Restoril PO 30 mg HSPRN PRN Administration Insomnia - Exam General - other findings: Obese Eye: anicteric sclera ENT: moist mucosa Neck: supple Heart: RRR, no rubs Respiratory: CTAB Gastrointestinal: soft, non-distended Extremities: no cyanosis Psychiatric: normal affect, normal behavior Hosp A/P - Plan Hosp A/P (1) COPD exacerbation Code(s): J44.1 - CHRONIC OBSTRUCTIVE PULMONARY DISEASE W (ACUTE) EXACERBATION Status: Acute (2) Pleural effusion Code(s): J90 - PLEURAL EFFUSION, NOT ELSEWHERE CLASSIFIED Status: Acute (3) Depression Code(s): F32.9 - MAJOR DEPRESSIVE DISORDER, SINGLE EPISODE, UNSPECIFIED Status : Chronic (4) Metastatic lung cancer (metastasis from lung to other site) Code(s): C34.90 - MALIGNANT NEOPLASM OF UNSP PART OF UNSP BRONCHUS OR LUNG Status: Chronic (5) Pericardial effusion Code(s): I31.3 - PERICARDIAL EFFUSION (NONINFLAMMATORY) Status: Chronic - Plan Pt clinically improving. Continue oxygen, steroids, DuoNebs and doxycycline. PCCM/Oncology following.
[2019-09-24] MEDS: Citalopram 20 MG TAB PO SCH (20:01)
[2019-09-24] MEDS: Montelukast Sodium 10 mg Tablet PO SCH (20:01)
[2019-09-24] MEDS: Temazepam 15 MG CAP PO PRN (23:49)
[2019-09-25] MEDS: methylPREDNISolone Sod Succ 40 MG VIAL IVP SCH ×4 (05:32→23:26)
[2019-09-25] MEDS: Enoxaparin Sodium 30 MG/0.3 ML SYRINGE SC SCH (08:37)
[2019-09-25] MEDS: Doxycycline 100 MG CAP PO SCH ×2 (08:37→21:12)
[2019-09-25] MEDS: ALECTINIB 150 MG PO SCH ×2 (08:38→20:00)
--- NOTE | 2019-09-25 10:16 | EKG ---
Test Reason : Blood Pressure : / mmHG Vent. Rate : 092 BPM Atrial Rate : 092 BPM P-R Int : 134 ms QRS Dur : 072 ms QT Int : 434 ms P-R-T Axes : 051 036 058 degrees QTc Int : 536 ms Normal sinus rhythm Nonspecific T wave abnormality Prolonged QT Abnormal ECG Confirmed by JP CORONA M.D. ([id number]), video news editor KATE PEÑA ([id number]) on 09/25/2019 10:16:12 AM Referred By: Confirmed By:JP CORONA M.D.
[2019-09-25] MEDS: Mometasone 200 MCG/Formoterol 5 MCG 120 PUFF INHALER INH SCH ×2 (11:02→18:40)
--- NOTE | 2019-09-25 12:59 | PRG ---
DATE OF SERVICE: 09/25/2019 SUBJECTIVE: The patient is breathing well, had no acute complaints about that. OBJECTIVE: VITAL SIGNS: Temperature 97.4, pulse 80, blood pressure 147/70, O2 saturation 96%. HEENT: Unremarkable. NECK: No adenopathy or JVD. LUNGS: Clear but distant breath sounds. LABORATORY DATA: No new labs were done today. ASSESSMENT: 1. Chronic obstructive pulmonary disease with exacerbation. 2. 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 PLAN: Apparently, her hospital discharge is being delayed because there is COVID rule out family member at home. The patient is stable for transfer up to the medical floor pending hospital discharge. Job ID: [id number]
[2019-09-25] MEDS ORDERED: Senokot 8.6 MG TAB PO PRN (14:14)
[2019-09-25] MEDS ORDERED: Senokot 8.6 MG TAB PO SCH (14:15)
--- NOTE | 2019-09-25 15:50 | PDOC.HOSPP ---
- Subjective Encounter Date: 09/25/19 Encounter Time: 09:00 Subjective: Pt seen for followup for exacerbation of COPD. Feels better. No new complaints. - Objective Vital Signs & Weight: Vital Signs (12 hours) Temp Pulse Resp Pulse Ox 09/25/19 14:19 80 18 09/25/19 11:17 97.4 F L 09/25/19 11:02 79 21 H 94 L 09/25/19 08:00 96 09/25/19 07:27 97.2 F L 09/25/19 04:00 97.4 F L Weight Weight 191 lb 3.2 oz Most Recent Monitor Data Heart Rate from ECG 81 NIBP 127/72 NIBP BP-Mean 90 Respiration from ECG 27 SpO2 94 I&O: 09/24/19 09/25/19 09/26/19 06:59 06:59 06:59 Intake Total 415 1300 720 Output Total 625 750 550 Balance -210 550 170 Result Diagrams: 09/21/19 03:53 09/20/19 03:39 Additional Labs: Labs and MARs reviewed by me EKG Reviewed by me: Yes (Tele: NSR) Hospitalist ROS - Review of Systems Respiratory: reports: cough, dry, SOB with excertion Cardiovascular: denies: chest pain, palpitations, orthopnea, paroxysmal noc. dyspnea, edema, light headedness Skin: denies: rash, lesions, hayder, bruising - Medication Medications: Active Medications Generic Name Dose Route Start Last Admin Trade Name Freq PRN Reason Stop Dose Admin Acetaminophen 650 mg 09/20/19 10:24 09/23/19 12:19 Tylenol PO 650 mg Q6H PRN Administration Headache/Fever or Pain Albuterol/Ipratropium 3 ml 09/18/19 15:00 09/25/19 14:19 Duoneb NEB 3 ml [id number] KENNETH Administration Citalopram Hydrobromide 40 mg 09/18/19 21:00 09/24/19 20:01 Celexa PO 40 mg HS KENNETH Administration Doxycycline Hyclate 100 mg 09/18/19 21:00 09/25/19 08:37 Vibramycin PO 100 mg BID KENNETH Administration Enoxaparin Sodium 30 mg 09/20/19 09:00 09/25/19 08:37 Lovenox SC 30 mg 0900 KENNETH Administration Methylprednisolone Sodium Succinate 40 mg 09/18/19 18:00 09/25/19 12:53 Solu-Medrol IVP 40 mg Q6HR KENNETH Administration Mometasone Furoate/Formoterol Fumar 2 puff 09/18/19 06:30 09/25/19 11:02 Dulera 200 Mcg/5 Mcg Inhaler INH 2 puff BID-RT KENNETH Administration Montelukast Sodium 10 mg 09/18/19 21:00 09/24/19 20:01 Singulair PO 10 mg HS KENNETH Administration Alectinib 150mg Cap 0 each 09/22/19 17:00 09/25/19 08:38 PO 1 each BID-WM KENNETH Administration Sodium Chloride 10 ml 09/18/19 21:00 09/25/19 12:59 Flush - Normal Saline IVF 10 ml Q12HR KENNETH Administration Sodium Chloride 10 ml 09/18/19 13:45 09/25/19 12:57 Flush - Normal Saline IVF 10 ml PRN PRN Administration Saline Flush Temazepam 30 mg 09/18/19 13:13 09/24/19 23:49 Restoril PO 30 mg HSPRN PRN Administration Insomnia - Exam General - other findings: Obese Eye: anicteric sclera ENT: moist mucosa Neck: supple Heart: RRR, no rubs Respiratory: CTAB, no wheezes, no rales Gastrointestinal: soft, non-tender Psychiatric: normal affect, normal behavior Hosp A/P - Plan Hosp A/P (1) COPD exacerbation Code(s): J44.1 - CHRONIC OBSTRUCTIVE PULMONARY DISEASE W (ACUTE) EXACERBATION Status: Acute (2) Pleural effusion Code(s): J90 - PLEURAL EFFUSION, NOT ELSEWHERE CLASSIFIED Status: Acute (3) Depression Code(s): F32.9 - MAJOR DEPRESSIVE DISORDER, SINGLE EPISODE, UNSPECIFIED Status : Chronic (4) Metastatic lung cancer (metastasis from lung to other site) Code(s): C34.90 - MALIGNANT NEOPLASM OF UNSP PART OF UNSP BRONCHUS OR LUNG Status: Chronic (5) Pericardial effusion Code(s): I31.3 - PERICARDIAL EFFUSION (NONINFLAMMATORY) Status: Chronic - Plan Pt clinically improving, transfer to medical floor. Continue oxygen, steroids, DuoNebs and antibibiotics (doxycycline). PT/OT Ambulate pt
[2019-09-25] MEDS: Montelukast Sodium 10 mg Tablet PO SCH (21:13)
[2019-09-25] MEDS: Citalopram 20 MG TAB PO SCH (21:17)
[2019-09-25] MEDS: Temazepam 15 MG CAP PO PRN (23:31)
[2019-09-26] MEDS: methylPREDNISolone Sod Succ 40 MG VIAL IVP SCH (05:12)
[2019-09-26] MEDS: Mometasone 200 MCG/Formoterol 5 MCG 120 PUFF INHALER INH SCH (06:49)
[2019-09-26 07:22] VITALS: TEMP 98.1
[2019-09-26] MEDS: Acetaminophen 325 MG TAB PO PRN (08:56)
[2019-09-26] MEDS: ALECTINIB 150 MG PO SCH (08:57)
[2019-09-26] MEDS: Enoxaparin Sodium 30 MG/0.3 ML SYRINGE SC SCH (08:59)
[2019-09-26] MEDS: Doxycycline 100 MG CAP PO SCH (08:59)
[2019-09-26 10:20] LABS: #Lymphocytes 0.7 thou/uL (1.20-3.40); #Monocytes 1.3 thou/uL (0.11-0.59); #Neutrophils 10.4 thou/uL (1.40-6.50); %Eosinophils 0.2 % (0.0-10.0); %Lymphocytes 5.6 % (21.0-51.0); %Monocytes 10.3 % (0.0-10.0); %Neutrophils 83.8 % (42.0-75.0); Hemoglobin 12.7 g/dL (12.0-16.0); Mean Corpuscular Hemoglobin 31.2 pg (27.0-31.0); Mean Corpuscular Volume 91.9 fL (78.0-98.0); Mean Platelet Volume 7.8 fL (7.4-10.4); Platelet Count 359 thou/uL (130-400); RBC Distribution Width 14.8 % (11.5-14.5); Red Blood Cell (RBC) Count 4.08 mill/uL (4.20-5.40); White Blood Cell (WBC) Count 12.4 thou/uL (4.8-10.8)
--- NOTE | 2019-09-26 11:45 | PRG ---
DATE OF SERVICE: 09/26/2019 SUBJECTIVE: The patient is not having any difficulty with her breathing. OBJECTIVE: VITAL SIGNS: Temperature 98.1, pulse 89, respirations 16, O2 saturation 94% on 3 L. HEENT: Unremarkable. NECK: No JVD. LUNGS: Clear without wheezing. CARDIAC: S1 and S2. Regular. ABDOMEN: Soft. EXTREMITIES: No edema. LABORATORY DATA: White blood cell count 12.4, hematocrit 37.5, and platelet count 359. ASSESSMENT: 1. Chronic obstructive pulmonary disease exacerbation. 2. Chronic left effusion, which is likely malignant. PLAN: The patient is stable to go home on oxygen. Should finish out a total of 7 days of antibiotics and then stop. Also, we will wean her steroids over about 2 weeks. She can follow up with Dr. Strickland as an outpatient. Job ID: [id number]
[2019-09-26] MEDS ORDERED: Temazepam 15 MG CAP PO PRN (12:43)
[2019-09-26 13:15] VITALS: BP 103/57
--- NOTE | 2019-09-26 14:43 | DIS ---
DATE OF ADMISSION: 09/18/2019 DATE OF DISCHARGE: 09/26/2019 PRIMARY CARE PROVIDER: Unknown. DISCHARGE DIAGNOSES: 1. Acute hypoxic respiratory failure. 2. Chronic obstructive pulmonary disease exacerbation. 3. Pleural effusion. 4. Lactic acidosis. CONDITION OF THE PATIENT ON THE DAY OF DISCHARGE: Stable. I assessed Ms. Nunez on the day of discharge. She denies any chest pain or shortness of breath. Vital signs are stable. S1 and S2 are heard, regular. Lungs are clear to auscultation bilaterally. DISCHARGE MEDICATIONS: 1. Alectinib 600 mg two times a day. 2. Citalopram 40 mg at bedtime. 3. Advair Diskus one puff 2 times a day. 4. Singulair 10 mg at bedtime. 5. Prednisone taper over the next 2 weeks. 6. Ventolin HFA p.r.n. 7. Xanax 0.25 mg p.o. b.i.d. p.r.n., 15 doses to be dispensed. 8. DuoNeb p.r.n. 9. Melatonin p.r.n. CONSULTATIONS DURING THIS HOSPITALIZATION: 1. Pulmonology, Dr. Strickland. 2. Oncology, Dr. Etienne. HOSPITAL COURSE: Ms. Nunez is a pleasant 64-year-old lady, who was admitted to [facility] on September 18, 2019 for acute hypoxic respiratory failure secondary to COPD exacerbation and pleural effusion. She was treated in the IM with high flow oxygen. She also received oxygen, steroids, bronchodilators, and antibiotics. She improved clinically. She is being discharged to home in a stable condition with home health for physical therapy. POST ACUTE CARE FOLLOWUP: With primary care provider in 3 days and with her oncologist in 10 days. DIET: Heart healthy diet. ACTIVITY: As tolerated. Many thanks for allowing me to participate in your patient's care. Please feel free to contact me with any questions or concerns. DISCHARGE DESTINATION: Home. TIME SPENT: Total amount of time spent coordinating this discharge, 32 minutes. Job ID: [id number]
--- NOTE | 2019-09-27 23:10 | PQF ---
SAP Bench Grinder Crystal Reports Winform Viewer HIDALGOMOHSEN MARTELLAV RODNEY [id number] [facility]- B09 [id number] CLINICAL DOCUMENTATION CLARIFICATION FORM: POST DISCHARGE Addendum to original discharge summary date: ____ Late entry note date: __ DATE: 09/27/19 ATTN:Av Andrews Please exercise your independent, professional judgment in responding to the clarification form. Clinical indicators are provided on the bottom of this form for your review Can you please further clarify if severe sepsis is ruled in or ruled out? Severe sepsis [ ] Ruled in diagnosis [ ] Continue to treat [ ] Resolved [ x ] Ruled out diagnosis [ ] Cannot rule out diagnosis [ ] Other diagnosis [ ] Unable to determine In addition, please specify: Present on Admission (POA): [ ] Yes [ ] No [ ] Unable to determine For continuity of documentation, please document condition throughout progress notes and discharge summary. Thank You. CLINICAL INDICATORS - SIGNS / SYMPTOMS / LABS ED Provider pg.3- Severe sepsis without septic shock H and P pg.2- Lactic acidosis this could be 2/2 her SOB H and P pg.2- Mild leukocytosis H and P pg.1- shortness of breath H and P pg.1- VS: Temp 98.1, Respiration 18, BP 113/64, pulse 81 RISK FACTORS Acute respiratory failure- H and P pg.2 COPD Exacerbation- DS pg.1 Lung cancer- H and P pg.1 TREATMENTS Chest X ray 09/16 Chest/Thorax CTA 09/16 IV Antibiotics- MAR Pulmonary Toilet O2 supplementation Pulmonary consult 09/17 Dr. Strickland (This form is maintained as a part of the permanent medical record) 2014 [employer]. All Rights Reserved [email or web address]
--- NOTE | 2019-09-28 22:11 | PQF ---
SAP Urinalysis Technician Crystal Reports Winform Viewer HIDALGOMOHSEN MARTELL AV ANDREWS [id number] [facility]- B09 [id number] CLINICAL DOCUMENTATION CLARIFICATION FORM: POST DISCHARGE Addendum to original discharge summary date: ____ Late entry note date: __ DATE: 09/28/19 ATTN: Av Andrews Please exercise your independent, professional judgment in responding to the clarification form. Clinical indicators are provided on the bottom of this form for your review Can you please clarify the reason for admission being treated for this patient? Please check appropriate box(s): [ ] Malignant pleural effusion [ ] COPD exacerbation [ x] Acute hypoxic respiratory failure [ ] Other diagnosis please specify [ ] Unable to determine In addition, please specify: Present on Admission (POA): [ x ] Yes [ ] No [ ] Unable to determine For continuity of documentation, please document condition throughout progress notes and discharge summary. Thank You. CLINICAL INDICATORS - SIGNS / SYMPTOMS / LABS H and P pg.1- chief complaint: Shortness of breath H and P pg.1- came to ER , she was pretty hypoxic H and P pg.2- Acute hypoxic respiratory failure, molt likely from her new left sided pleural effusion Consult 09/17 Dr. Dugan- increasing SOB, superimposed upon non-small cell carcinoma Chest X ray PN 09/25 pg.1- chronic left pleural effusion likely malignant DS pg.1- admitted for acute hypoxic respiratory failure 2/2 COPD exacerbation and pleural effusion RISK FACTORS squamous cell carcinoma of the lung- Consult Dr. Dugan pg.2 COPD exacerbation- Hospitalist PN pg.5 Pleural effusion- Hospitalist PN pg.5 acute respiratory failure- DS pg.1 TREATMENTS: Chest Xray 09/16 Chest/Thorax CTA 09/[address] Strickland 09/[address] Dugan 09/17 IMCU- DS pg.1 high flow oxygen-DS pg.1 steroids,bronchodilators and antibiotics- DS pg.1 IV Fluid- MAR (This form is maintained as a part of the permanent medical record) 2014 [employer] All Rights Reserved [email or web address]
== END 2019-09-26 13:59 | disposition home health service (06) | DRG 189 ==
LOC: ERS 22:34 → ERHOLD 09-18 03:10 → IMCU/EMU 09-18 11:04 → T4-A 09-25 15:05
PROVIDERS: ADMIT Internal Medicine; ATTEND Internal Medicine
DX: J96.01 Acute respiratory failure with hypoxia (principal); C34.12 Malignant neoplasm of upper lobe, left bronchus or lung; E87.2 Acidosis; I31.3 Pericardial effusion (noninflammatory); J90 Pleural effusion, not elsewhere classified; J43.9 Emphysema, unspecified; F32.9 Major depressive disorder, single episode, unspecified; Z99.81 Dependence on supplemental oxygen; Z88.0 Allergy status to penicillin; Z79.51 Long term (current) use of inhaled steroids; Z87.891 Personal history of nicotine dependence
CPT/HCPCS: 36415; 36416; 71045; 71275; 80048; 80053; 81003; 83605; 83880; 84484; 85025; 87040; 87086; 87804; 93005; 94640; 94660; 96361; 96365; 96366; 96367; 96375; J0456; J0692; J1650; J2060; J2920; J3370; J7050; J7620; Q9967

== ENCOUNTER 2019-09-28 15:13 | Inpatient (IN) | payer MEDICARE ==
[2019-09-28] MEDS ORDERED: Lorazepam 2 MG/ML VIAL ONE (15:24)
[2019-09-28] MEDS ORDERED: Iopamidol 370 76% 100 ML VIAL ONE (15:40)
[2019-09-28 15:45] LABS: #Lymphocytes 2.7 thou/uL (1.20-3.40); #Neutrophils 11.9 thou/uL (1.40-6.50); %Basophils 0.1 % (0.0-1.0); %Eosinophils 0.3 % (0.0-10.0); %Lymphocytes 16.3 % (21.0-51.0); %Monocytes 11.8 % (0.0-10.0); %Neutrophils 71.5 % (42.0-75.0); Hemoglobin 13.8 g/dL (12.0-16.0); Mean Corpuscular HGB CONC 34.8 g/dL (32.0-36.0); Mean Corpuscular Hemoglobin 31.7 pg (27.0-31.0); Mean Corpuscular Volume 91.1 fL (78.0-98.0); Mean Platelet Volume 9.3 fL (7.4-10.4); Platelet Count 302 thou/uL (130-400); RBC Distribution Width 15.1 % (11.5-14.5); Red Blood Cell (RBC) Count 4.37 mill/uL (4.20-5.40); White Blood Cell (WBC) Count 16.7 thou/uL (4.8-10.8)
--- NOTE | 2019-09-28 16:09 | RAD ---
PORTABLE CHEST 1 VIEW: Date: 09/28/2019 Time: 1548 hours HISTORY: Dyspnea. COMPARISON: 09/23/2019. FINDINGS: The heart is enlarged. Opacities in the left hemithorax are again seen due to left upper lobe mass an d left pleural effusion. The right lung is clear. IMPRESSION: Stable exam. POS: IAN
[2019-09-28 16:55] LABS: Albumin 3.2 g/dL (3.4-4.8)
[2019-09-28 16:56] LABS: Calcium 9.7 mg/dL (7.8-10.44); Chloride 94 mmol/L (98-107); Potassium 3.6 mmol/L (3.5-5.1); Sodium 138 mmol/L (136-145)
[2019-09-28 16:57] LABS: Globulin 2.6 g/dL (2.4-3.5); Glucose 78 mg/dL (80-115); Protein, Total 5.8 g/dL (6.0-8.3)
[2019-09-28 16:58] LABS: Anion Gap 12 mmol/L (10-20); Carbon Dioxide 36 mmol/L (23-31)
[2019-09-28 16:59] LABS: Bilirubin, Total 1.6 mg/dL (0.2-1.2)
[2019-09-28 17:00] LABS: Alkaline Phosphatase 130 U/L (40-110); Calc. Creatinine Clearance 0 mL/min (70-130); Estimated GFR-MDRD 72
[2019-09-28 17:01] LABS: BUN (Urea Nitrogen) 15 mg/dL (9.8-20.1)
[2019-09-28 17:02] LABS: AST (SGOT) 67 U/L (5-34)
[2019-09-28 17:03] LABS: ALT (SGPT) 88 U/L (8-55); CK (CPK) 74 U/L (29-168)
--- NOTE | 2019-09-28 17:16 | CT ---
CT arteriogram chest with IV contrast and 3-D imaging HISTORY: Chest pain. Lung cancer. COMPARISON: 09/17/2019 and 06/04/2019. FINDINGS: There is good contrast opacification of the pulmonary arteries and thoracic aorta with bovi ne origin of the great vessels at the aortic arch. There is calcification within the arterial structures. Bulky, partially necrotic adenopathy throughout the mediastinum is again demonstrated, as detailed on recent CT arteriogram chest. Large amount of left pleural fluid has increased slightly, with progression of compressive atelectasis of the left lung. Small pericardial effusion is stable. No evidence of pneumothorax. Within the partially visualized upper abdomen, innumerable low-density metastases throughout the live r are similar in appearance to the recent exam. IMPRESSION : No CT evidence of pulmonary embolus. Extensive widespread metastatic disease of the chest and liver. Left pleural fluid has increased slig htly, with progression of compressive atelectasis of the left lung.
[2019-09-28 17:32] LABS: Bilirubin Negative (Negative); Blood, Urine Negative (Negative); Clarity Clear (Clear); Glucose, Urine (Dipstick) Normal (Negative); Leukocyte Negative Leu/uL (Negative); Nitrite Negative (Negative); Protein, Urine (Dipstick) 10 mg/dL (Neg-Trace)
[2019-09-28 18:48] LABS: Lactic Acid 1.9 mmol/L (0.5-2.2)
[2019-09-28] MEDS ORDERED: Guaifenesin DM 100-10/5 ML UDCUP PO PRN (19:36)
[2019-09-28] MEDS ORDERED: HYDROcodone/Acetaminophen 5/325 mg Tablet PO PRN ×2 (19:36)
[2019-09-28] MEDS ORDERED: Ondansetron ODT 4 MG TAB PO PRN (19:36)
[2019-09-28] MEDS ORDERED: Acetaminophen 650 MG Suppository PR PRN (19:36)
[2019-09-28] MEDS ORDERED: Ondansetron PF 4 MG/2 ML Vial IVP PRN (19:36)
[2019-09-28] MEDS ORDERED: Albuterol Sulfate 2.5 mg/3 ml Neb NEB PRN (19:36)
--- NOTE | 2019-09-28 20:03 | HP ---
PRIMARY CARE PHYSICIAN: Rajiv Alberto, physician's surgical supply assistant. TUNNEL KILN REPAIRER: Dr. Strickland. HEME/ONCOLOGIST: Dr. Etienne. CHIEF COMPLAINT: Shortness of breath and hypoxia. HISTORY OF PRESENT ILLNESS: This is a 64-year-old female with a known history of non-small cell carcinoma of the lung metastatic, on oral immunotherapy, who follows with Dr. Oneil Medina. She was just in the hospital for eight days for COPD exacerbation with hypoxia. Also, noted to have pleural effusion. She improved during her hospitalization, was weaned down to 3 L of oxygen and was discharged two days ago. 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 She reports that she had started feeling a little bad Friday at home and noticed on her home pulse oximeter that her sats were dropping into the 80s down to the 70s. She was told to increase her oxygen eventually up to 4 L. Then. Today she was using her portable oxygen and went to see Dr. Coffey who was covering for Dr. Etienne in the clinic. There with her pulse oximeter, she was noted to be in the 60s with her portable oxygen, so she was sent over to the ER. Patient was also very anxious. Whenever she noticed her oxygen dropping, she got very anxious and breathe very fast as well. In the emergency room, patient was put on 4 L nasal cannula and given a little bit of Ativan. She stopped having respiratory distress and her oxygen saturations are now running in the mid 90s about 95% right now on 4 L nasal cannula without any increased work of breathing. She denies any other symptoms. No congestion. No drainage. No coughing. No fever or chills. REVIEW OF SYSTEMS: CONSTITUTIONAL: See HPI. EYES: No double vision or blurred vision. ENT: See HPI. CARDIOVASCULAR: No chest pain. No palpitations or racing heart. PULMONARY: See HPI. GASTROINTESTINAL: No abdominal pain. No nausea or vomiting. No diarrhea. She does have some constipation, for which she just now started some Senokot. GENITOURINARY: No dysuria or hematuria. MUSCULOSKELETAL: No muscle aches or joint pain. SKIN: No rashes or lesions noted. NEUROLOGIC: No numbness, tingling, or focal weakness. PAST MEDICAL HISTORY: 1. Non-small cell carcinoma of the lung, metastatic. 2. COPD. PSYCHIATRIC HISTORY: Depression and anxiety. PAST SURGICAL HISTORY: Pericardial drainage. SOCIAL HISTORY: Patient quit smoking 6 to 7 years ago. Smoked a pack and a half from 20 years. No alcohol or illicit drug use. She lives with her daughter in the [facility]. She is a full code. Should she be incapacitated, her daughter in-law and son and should she be incapacitated, her daughter in-law, would be her medical decision maker. Her name is Kirsten Nunez. ALLERGIES: PENICILLIN. CURRENT MEDICATIONS: 1. Prednisone taper 20 mg twice a day for four days, then one once a day for 5 days, and then half tablet daily for 6 days. 2. Senokot one tablet twice a daily as needed. 3. Temazepam 15 mg at bedtime as needed for insomnia. 4. Advair Diskus 250/50 one inhalation twice a day. 5. Singulair 10 mg at bedtime. 6. Celexa 40 mg at bedtime. 7. DuoNeb every 6 hours as needed. She is not able to fill this. 8. Melatonin 3 mg at bedtime as needed. 9. Ventolin inhaler as needed. 10. Alecensa 600 mg twice a day. PHYSICAL EXAMINATION: VITAL SIGNS: Blood pressure 118/71, pulse 85, respirations 22, O2 saturation 94% currently on 4 L nasal cannula, and temperature 98.3. GENERAL: This is a well-developed obese white female, in no acute distress. HEENT: Pupils are equal, round, and reactive to light. Oropharynx is clear without lesions, erythema, or exudate. NECK: Supple. No lymphadenopathy. No thyroid nodules or enlargement. HEART: Regular rate and rhythm. No murmurs, rubs, or gallops. LUNGS: Clear to auscultation bilaterally. No wheezes, crackles, or rhonchi noted. No increased work of breathing at this time. ABDOMEN: Soft, obese, and nontender to palpation. Normoactive bowel sounds. No hepatosplenomegaly or masses. EXTREMITIES: No clubbing, cyanosis, or edema. SKIN: No rashes or lesions noted. NEUROLOGIC: Patient is moving all extremities equally. She has no facial droop. PSYCHIATRIC: Alert and oriented x3. Normal mood and affect after being given Ativan in the emergency room. LABORATORY DATA: CBC with a white blood cell count of 16,000, 71% neutrophils, hemoglobin, hematocrit, and platelets are normal. Complete metabolic panel is notable for chloride of 94, bicarb is 36, glucose is 78, total bilirubin of 1.6, AST of 67, ALT of 88, alkaline phosphatase of 130, albumin of 3.2. The rest is normal. Lactic acid was initially 2.8, down to 1.9 now after a liter of fluid. Brain natriuretic peptide is normal at 13.4. Urinalysis is negative for infection. CT angio does show no evidence for pulmonary embolism. There is extensive widespread metastatic disease of the chest and liver. Left pleural effusion is increased slightly with progression of compressive atelectasis of the left lung. ASSESSMENT: 1. Acute on chronic hypoxic respiratory failure. This appears to be multifactorial. Patient does have a mild increase in her large left pleural effusion fluid collection. ER did talk to Dr. Strickland. He is going to assess her in the hospital and see if she needs a thoracentesis. They did not do that in the last hospitalization, just a few days ago, so may not be necessary. Patient's oxygen saturations are doing fine now. I just had them give her a DuoNeb here in the emergency room and now she is down to 3 L nasal cannula and saturating 96%, which is what she was doing before she was discharged. I suspect that there is a multifactorial thing going on here both with her not getting her nebulizers at home and possibly with either poor reading by the finger pulse oximeters which is what she is using at home. We got her one here. I am suspicious that her oxygen equipment is not actually working at home. Said she had a portable oxygen, said she desaturated so far on. I am going to have the family bring both the oxygen and the home pulse oximeter up and we can test these before she goes back home again to make sure she is getting a proper amount of oxygen through them and the pulse oximeter is measuring correctly. I am going to put her on nebulizers here in the hospital and continue her steroids that she was on when she went home. 2. Small-cell cancer of the lung metastatic. We will continue patient's chemotherapy agent and she will need to follow up with Dr. Etienne as an outpatient as previously scheduled after she is discharged. 3. Anxiety. The patient is on citalopram and has been increased to 40 mg daily, is still not well controlled. I am going to try her on some Xanax here a couple of times a day and see if that helps with her anxiety levels. If it works well, then we can discharge her with that after when she goes home. 4. Deep venous thrombosis prophylaxis. We will go ahead and put the patient on Lovenox due to her high risk of thromboembolic disease. 5. Gastrointestinal prophylaxis. The patient on Pepcid twice a day. 6. Depression. We will continue patient's Celexa. 7. Code status. The patient is a full code. Should she be incapacitated, her son, Hal Nunez and her [id number], Kirsten Nunez, would be her medical decision makers. Job ID: [id number]
[2019-09-28 20:07] VITALS: BMI 31.8
[2019-09-28] MEDS ORDERED: Temazepam 15 MG CAP PO PRN (21:07)
[2019-09-28] MEDS ORDERED: Senokot 8.6 MG TAB PO PRN (21:07)
[2019-09-28] MEDS ORDERED: PROVENTIL INHALER 6.7 G (200 INHALATIONS) INH PRN (21:07)
[2019-09-28] MEDS ORDERED: predniSONE 20 MG TAB PO SCH (21:15)
[2019-09-28] MEDS: Temazepam 15 MG CAP PO PRN (21:42)
[2019-09-28] MEDS: Famotidine 20 MG TAB PO SCH (21:42)
[2019-09-28] MEDS: Citalopram 20 MG TAB PO SCH (21:42)
[2019-09-28] MEDS: Montelukast Sodium 10 mg Tablet PO SCH (21:42)
[2019-09-29 04:16] LABS: #Eosinphils 0.1 thou/uL (0.0-0.7); #Lymphocytes 1.7 thou/uL (1.20-3.40); #Monocytes 1.4 thou/uL (0.11-0.59); #Neutrophils 8.9 thou/uL (1.40-6.50); %Basophils 0.3 % (0.0-1.0); %Eosinophils 0.7 % (0.0-10.0); %Monocytes 11.7 % (0.0-10.0); %Neutrophils 73.3 % (42.0-75.0); Hemoglobin 12.7 g/dL (12.0-16.0); Mean Corpuscular HGB CONC 33.9 g/dL (32.0-36.0); Mean Corpuscular Hemoglobin 31.2 pg (27.0-31.0); Mean Corpuscular Volume 92.1 fL (78.0-98.0); Mean Platelet Volume 8.4 fL (7.4-10.4); Platelet Count 228 thou/uL (130-400); RBC Distribution Width 14.7 % (11.5-14.5); Red Blood Cell (RBC) Count 4.06 mill/uL (4.20-5.40); White Blood Cell (WBC) Count 12.2 thou/uL (4.8-10.8)
[2019-09-29 04:33] LABS: Anion Gap 12 mmol/L (10-20); BUN (Urea Nitrogen) 12 mg/dL (9.8-20.1); Calc. Creatinine Clearance 104 mL/min (70-130); Calcium 9.2 mg/dL (7.8-10.44); Carbon Dioxide 35 mmol/L (23-31); Chloride 96 mmol/L (98-107); Estimated GFR-MDRD 80; Glucose 73 mg/dL (80-115); Potassium 3.5 mmol/L (3.5-5.1); Sodium 139 mmol/L (136-145)
[2019-09-29] MEDS: Mometasone 200 MCG/Formoterol 5 MCG 120 PUFF INHALER INH SCH ×2 (07:31→18:47)
[2019-09-29] MEDS ORDERED: predniSONE 20 MG TAB PO SCH (08:00)
[2019-09-29] MEDS: Famotidine 20 MG TAB PO SCH ×2 (10:07→20:40)
[2019-09-29] MEDS: Enoxaparin Sodium 40 MG/0.4 ML SYRINGE SC SCH (10:07)
--- NOTE | 2019-09-29 11:14 | PDOC.HOSPP ---
- Subjective Encounter Date: 09/29/19 Encounter Time: 11:13 Subjective: Ms. Nunez was seen today in follow-up of COPd exacerbation. she says she is breathing better today. she continues to have a little dyspnea. - Objective Vital Signs & Weight: Vital Signs (12 hours) Temp Pulse Resp BP Pulse Ox 09/29/19 07:32 90 L 09/29/19 07:31 68 16 90 L 09/29/19 07:30 68 20 90 L 09/29/19 04:02 97.7 F 81 20 129/61 92 L 09/29/19 04:00 92 L 09/29/19 01:00 92 L 09/29/19 00:56 79 22 H 92 L 09/29/19 00:10 92 L 09/28/19 23:45 97.8 F 78 20 120/59 L 92 L Weight Weight 191 lb 7 oz I&O: 09/28/19 09/29/19 09/30/19 06:59 06:59 06:59 Intake Total 300 Output Total 350 Balance -50 Result Diagrams: 09/29/19 03:47 09/29/19 03:47 Hospitalist ROS - Medication Medications: Active Medications Generic Name Dose Route Start Last Admin Trade Name Freq PRN Reason Stop Dose Admin Albuterol/Ipratropium 3 ml 09/29/19 01:00 09/29/19 07:30 Duoneb NEB 3 ml [id number] KENNETH Administration Citalopram Hydrobromide 40 mg 09/28/19 21:00 09/28/19 21:42 Celexa PO 40 mg HS KENNETH Administration Enoxaparin Sodium 40 mg 09/29/19 09:00 09/29/19 10:07 Lovenox SC 40 mg 0900 KENNETH Administration Famotidine 20 mg 09/28/19 21:00 09/29/19 10:07 Pepcid PO 20 mg BID KENNETH Administration Mometasone Furoate/Formoterol Fumar 2 puff 09/29/19 06:30 09/29/19 07:31 Dulera 200 Mcg/5 Mcg Inhaler INH 2 puff BID-RT KENNETH Administration Montelukast Sodium 10 mg 09/28/19 21:00 09/28/19 21:42 Singulair PO 10 mg HS KENNETH Administration Prednisone 20 mg 09/29/19 08:00 09/29/19 10:07 Prednisone PO 20 mg BID-WM KENNETH Administration Temazepam 15 mg 09/28/19 19:36 09/28/19 21:42 Restoril PO 15 mg HSPRN PRN Administration Insomnia - Exam Eye: PERRL Heart: RRR, no murmur, no gallops Respiratory: wheezes Gastrointestinal: soft, non-tender, non-distended, normal bowel sounds, no palpable masses, no hepatomegaly Extremities: no cyanosis Hosp A/P (1) Acute and chronic respiratory failure Code(s): J96.20 - ACUTE AND CHR RESP FAILURE, UNSP W HYPOXIA OR HYPERCAPNIA Status: Acute (2) COPD exacerbation Code(s): J44.1 - CHRONIC OBSTRUCTIVE PULMONARY DISEASE W (ACUTE) EXACERBATION Status: Acute (3) Pleural effusion Code(s): J90 - PLEURAL EFFUSION, NOT ELSEWHERE CLASSIFIED Status: Acute (4) Metastatic lung cancer (metastasis from lung to other site) Code(s): C34.90 - MALIGNANT NEOPLASM OF UNSP PART OF UNSP BRONCHUS OR LUNG Status: Chronic - Plan * Acute on chronic respiratory failure- possible contributed by equipment malfunction, and pleuaral effusion * Jennifer b2b outside sales representative is to go and check her equipment * Will continue with Duonebs, steroids, and Dulera * Await input from her Plastic Boat Patcher * Lung cancer- advanced
--- NOTE | 2019-09-29 14:09 | PRG ---
DATE OF SERVICE: 09/29/2019 SUBJECTIVE: Ms. Nunez came back yesterday with reported hypoxemia. Her nurse called the office and her sats were in the 83% range on 2 L a minute. I was told by the ER doc that her sats were in the 60% range. She actually now says she feels fine and feels like she felt when she went home. There has been no interval change. She said she did have a nebulizer at home, but was unable to fill the prescription for the nebulizer medicine at [facility] because there was not a diagnosis code on the prescription for Medicare. She did have a few samples of albuterol left over. She denies having fever, chills, sweats, or purulent sputum. OBJECTIVE: GENERAL: She is in no distress. She still has a weak voice. VITAL SIGNS: She is afebrile. Heart rate is in the 80s, respiratory rates in the teens, oximetry is 88% on 4 L, blood pressure 105/55. LUNGS: Remarkable for decreased breath sounds at the left base. HEART: Regular rhythm. ABDOMEN: Soft. ASSESSMENT AND PLAN: I reviewed her chest CT. I do not see much difference in the pleural effusion between this one and the last one. I offered thoracentesis. She would prefer not to go through this, unless I can guarantee her that she will be better. I really cannot. I do not feel the pleural effusion is creating her hypoxemia, but I do believe her left hilar mass may be increasing in size or creating more of an obstruction, which will affect her gas exchange. We will treat her for chronic obstructive pulmonary disease for now and see if she improves like she did with the last admission. I would treat her with IV steroids while she is here and nebulize her every 4 hours. Job ID: [id number]
[2019-09-29] MEDS: ALECTINIB HCL 150 MG PO SCH ×3 (16:21→20:38)
[2019-09-29] MEDS: methylPREDNISolone Sod Succ 40 MG VIAL IVP SCH ×2 (18:33→23:37)
[2019-09-29] MEDS: Temazepam 15 MG CAP PO PRN (20:39)
[2019-09-29] MEDS: Montelukast Sodium 10 mg Tablet PO SCH (20:39)
[2019-09-29] MEDS: Citalopram 20 MG TAB PO SCH (20:39)
[2019-09-29] MEDS: Senokot S 8.6-50 MG TAB PO PRN (20:40)
[2019-09-30] MEDS: methylPREDNISolone Sod Succ 40 MG VIAL IVP SCH ×3 (05:42→17:04)
[2019-09-30] MEDS: Mometasone 200 MCG/Formoterol 5 MCG 120 PUFF INHALER INH SCH ×2 (07:01→19:03)
[2019-09-30 07:51] LABS: #Basophils 0.1 thou/uL (0.0-0.2); #Eosinphils 0.1 thou/uL (0.0-0.7); #Lymphocytes 0.7 thou/uL (1.20-3.40); #Monocytes 0.4 thou/uL (0.11-0.59); #Neutrophils 6.9 thou/uL (1.40-6.50); %Basophils 0.6 % (0.0-1.0); %Eosinophils 1.4 % (0.0-10.0); %Lymphocytes 8.7 % (21.0-51.0); %Monocytes 4.9 % (0.0-10.0); %Neutrophils 84.3 % (42.0-75.0); Mean Corpuscular HGB CONC 34.1 g/dL (32.0-36.0); Mean Corpuscular Hemoglobin 31.3 pg (27.0-31.0); Mean Corpuscular Volume 91.7 fL (78.0-98.0); Mean Platelet Volume 8.8 fL (7.4-10.4); Platelet Count 209 thou/uL (130-400); RBC Distribution Width 14.5 % (11.5-14.5); Red Blood Cell (RBC) Count 4.16 mill/uL (4.20-5.40); White Blood Cell (WBC) Count 8.1 thou/uL (4.8-10.8)
[2019-09-30 08:04] LABS: Anion Gap 16 mmol/L (10-20); BUN (Urea Nitrogen) 11 mg/dL (9.8-20.1); Calc. Creatinine Clearance 108 mL/min (70-130); Calcium 9.3 mg/dL (7.8-10.44); Carbon Dioxide 31 mmol/L (23-31); Chloride 95 mmol/L (98-107); Estimated GFR-MDRD 84; Glucose 142 mg/dL (80-115); Potassium 4.6 mmol/L (3.5-5.1); Sodium 137 mmol/L (136-145)
[2019-09-30] MEDS: Enoxaparin Sodium 40 MG/0.4 ML SYRINGE SC SCH (08:04)
[2019-09-30] MEDS: Famotidine 20 MG TAB PO SCH ×2 (08:05→20:47)
[2019-09-30] MEDS: Senokot S 8.6-50 MG TAB PO PRN (08:06)
[2019-09-30] MEDS: ALECTINIB HCL 150 MG PO SCH ×2 (08:06→20:48)
--- NOTE | 2019-09-30 13:53 | PDOC.PALCO ---
Palliative Care Consult - Consult Details Requesting Physician: Dr Sifuentes Reason for Consult: goals of care, complex decision-making Family Members Present: None - Pertinent HPI 64 year old female with non-small cell lung cancer with metastatic disease. Was recently in the hospital for exacerbation of COPD, unable to obtain duobebs. Had increase in shortness of breath, O2 dependent. Went to cancer clinic and was noted to have low O2 saturation and increase in anxiety related to shortness of breath. Sent to the emergency room from the oncology clinic for further evaluation, admitted for respiratory failure with paired anxiety and further medical management and evaluation. - Pertinent PMH Non-small cell carcinoma of the lung, metastatic, COPD - Social History Smoking Status: Former smoker Smoking: quit greater than 1 year Alcohol Use: none Drug Use History: none Living Situation: other (Lives with her daughter) - Medications MAR Reviewed: Yes - Allergies Allergies/Adverse Reactions: Allergies Allergy/AdvReac Type Severity Reaction Status Date / Time Penicillins Allergy Severe Anaphylaxis Verified 09/28/19 20:47 - Subjective O2, awake. Shortness of breath with conversation. - ROS Constitutional: alert, weakness ENT: other (negative fo rdissifulity swallowing, congestion) Respiratory: shortness of breath, shortness of breath with extertion Cardiology: other (negative for chest pain, palpitations, ) Gastrointestinal: other (negative for nausea, vomiting. ) Neurological: other (negative for numbness, headache) Skin: other (negtaive for rash, puritis) Psychological: anxiety - Objective Vital Signs: Vital Signs - Most Recent Temp Pulse Resp BP Pulse Ox 98.4 F 85 20 105/55 L 90 L 09/30/19 11:44 09/30/19 11:44 09/30/19 11:44 09/30/19 11:44 09/30/19 11:44 Palliative Performance Scale: 50 - Advance Directives Medical Power of Electric Dolly Operator: Daughter in law, Kirsten Nunez with her biological children - Physical Exam Constitutional: ill appearing, mild distress HEENT: EOMI, moist MMs, sclera anicteric Respiratory: labored respirations, tachypnea Cardiovascular: RRR Gastrointestinal: continent Genitourinary: continent Musculoskeletal: no clubbing Neurology: moves all 4 limbs, no focal deficits Skin: cap refill <2 seconds, no lesions, no rash Psychiatric: A&O x 3, normal mood - Problem List (1) Palliative care encounter Code(s): Z51.5 - ENCOUNTER FOR PALLIATIVE CARE Current Visit: Yes Status: Acute (2) Physical debility Code(s): R53.81 - OTHER MALAISE Current Visit: Yes Status: Acute (3) Acute and chronic respiratory failure Code(s): J96.20 - ACUTE AND CHR RESP FAILURE, UNSP W HYPOXIA OR HYPERCAPNIA Current Visit: Yes Status: Acute (4) Pleural effusion Code(s): J90 - PLEURAL EFFUSION, NOT ELSEWHERE CLASSIFIED Current Visit: No Status: Acute (5) Depression Code(s): F32.9 - MAJOR DEPRESSIVE DISORDER, SINGLE EPISODE, UNSPECIFIED Current Visit: No Status: Chronic (6) Metastatic lung cancer (metastasis from lung to other site) Code(s): C34.90 - MALIGNANT NEOPLASM OF UNSP PART OF UNSP BRONCHUS OR LUNG Current Visit: No Status: Chronic (7) Anxiety Code(s): F41.9 - ANXIETY DISORDER, UNSPECIFIED Current Visit: Yes Status: Acute - Plan/Recommendations Plan: Introduced Palliative Care to patient, discussed that her MPOA is her children and [id number] Kirsten Nunez. Discussed ensuring her children know her wishes, will provide tool for patient to discuss with them. Conversation allowed for therapeutic listening and emotional support. Confirmed anxiety related to shortness of breath. Has xanax prn, encourage use as needed. Consideration may be given to nebulized morphine to mitigate tachypnea. Discussed measures to prevent injury related to shortness and weakness she experiences at times : Use rolling walker with seat, use wheelchair activities where she may experience fatigue. Expressed frustration related to not able to do "what she was doing prior to diagnosis in March". Encouraged activities as she is able, modifying ambulation at times to extend energy. Will have Kirsten come tomorrow to discuss in person patient wishes should she need her children and [id number] make decisions. *continue with all aggressive measures and revisit goal of care as needed. [75] minutes spent on this encounter with >50% of the time in counseling and coordination of care. Thank you for this very appropriate consult.
--- NOTE | 2019-09-30 14:44 | PRG ---
DATE OF SERVICE: 09/30/2019 SUBJECTIVE: Lanette Nunez says she is feeling better. OBJECTIVE: VITAL SIGNS: She is afebrile. Heart rate is 80, respiratory rate 16, oximetry is 90% on 4 L, blood pressure 105/55. LUNGS: Remarkable for decreased breath sounds at left base. HEART: Regular rhythm. ABDOMEN: Soft. NEURO: She is still hoarse. LABORATORY DATA: White count 8.1, hemoglobin 13, platelets 209. Electrolytes are unremarkable. IMPRESSION AND PLAN: 1. Lung cancer. 2. Probable left true vocal cord paralysis leading to her hoarseness. 3. 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 I do not feel that . I think it is more likely related to an inability to talk with a paralyzed vocal cord. Her lesion certainly could have led to recurrent laryngeal nerve involvement. I would just continue with current care. We discussed thoracentesis again, but she does not want to go through this at this time and I really cannot argue with her about that. I will see her again in the morning, maybe she will be a candidate to go home tomorrow. Job ID: [id number]
--- NOTE | 2019-09-30 15:30 | EKG ---
Test Reason : Blood Pressure : / mmHG Vent. Rate : 089 BPM Atrial Rate : 089 BPM P-R Int : 134 ms QRS Dur : 064 ms QT Int : 404 ms P-R-T Axes : 051 030 019 degrees QTc Int : 491 ms Poor data quality, interpretation may be adversely affected Normal sinus rhythm Possible Left atrial enlargement Low voltage QRS Nonspecific ST and T wave abnormality Prolonged QT Abnormal ECG Confirmed by PETER BARNEY, ARETHA ([id number]), senior technical editor PABLO WALLACE ([id number]) on 09/30/2019 3:29:13 PM Referred By: Confirmed By:ARETHA GREEN MD
--- NOTE | 2019-09-30 16:03 | PDOC.HOSPP ---
- Subjective Encounter Date: 09/30/19 Encounter Time: 16:00 Subjective: Ms. Nunez was seen today in follow-up of respiratory failure. She says she is feeling a little better now. She continues to appear very weak and a bit dyspneic. - Objective Vital Signs & Weight: Vital Signs (12 hours) Temp Pulse Resp BP Pulse Ox 09/30/19 15:45 98.0 F 81 18 101/58 L 93 L 09/30/19 15:06 80 16 90 L 09/30/19 11:44 98.4 F 85 20 105/55 L 90 L 09/30/19 10:55 80 16 90 L 09/30/19 08:00 90 L 09/30/19 07:28 98.1 F 79 18 125/60 90 L 09/30/19 07:05 90 L 09/30/19 07:04 79 16 90 L 09/30/19 07:01 79 16 90 L 09/30/19 05:35 80 18 94 L Weight Admit Weight 191 lb 6.992 oz Weight 191 lb 6.992 oz I&O: 09/29/19 09/30/19 10/01/19 06:59 06:59 06:59 Intake Total 300 821 Output Total 350 300 Balance -50 521 Result Diagrams: 09/30/19 07:26 09/30/19 07:26 Hospitalist ROS - Medication Medications: Active Medications Generic Name Dose Route Start Last Admin Trade Name Freq PRN Reason Stop Dose Admin Albuterol/Ipratropium 3 ml 09/29/19 14:30 09/30/19 15:06 Duoneb NEB 3 ml [id number] KENNETH Administration Citalopram Hydrobromide 40 mg 09/28/19 21:00 09/29/19 20:39 Celexa PO 40 mg HS KENNETH Administration Enoxaparin Sodium 40 mg 09/29/19 09:00 09/30/19 08:04 Lovenox SC 40 mg 0900 KENNETH Administration Famotidine 20 mg 09/28/19 21:00 09/30/19 08:05 Pepcid PO 20 mg BID KENNETH Administration Methylprednisolone Sodium Succinate 20 mg 09/29/19 18:00 09/30/19 11:48 Solu-Medrol IVP 20 mg Q6HR KENNETH Administration Mometasone Furoate/Formoterol Fumar 2 puff 03/25/20 06:30 09/30/19 07:01 Dulera 200 Mcg/5 Mcg Inhaler INH 2 puff BID-RT KENNETH Administration Montelukast Sodium 10 mg 09/28/19 21:00 09/29/19 20:39 Singulair PO 10 mg HS KENNETH Administration Alectinib Hcl [ 4 each 09/28/19 21:00 09/30/19 08:06 Alecensa] 150 Mg Cap PO 4 each BID KENNETH Administration Senna/Docusate Sodium 2 tab 09/28/19 19:36 09/30/19 08:06 Senokot S PO 1 tab BIDPRN PRN Administration Constipation Sodium Chloride 10 ml 09/29/19 23:28 09/30/19 05:42 Flush - Normal Saline IVF 10 ml PRN PRN Administration Saline Flush Temazepam 15 mg 09/28/19 19:36 09/29/19 20:39 Restoril PO 15 mg HSPRN PRN Administration Insomnia - Exam Heart: RRR, no murmur, no gallops, no rubs Respiratory: CTAB, no wheezes, no rales Gastrointestinal: soft, non-tender, non-distended, normal bowel sounds, no palpable masses, no hepatomegaly Extremities: no cyanosis Hosp A/P (1) Acute and chronic respiratory failure Code(s): J96.20 - ACUTE AND CHR RESP FAILURE, UNSP W HYPOXIA OR HYPERCAPNIA Status: Acute (2) COPD exacerbation Code(s): J44.1 - CHRONIC OBSTRUCTIVE PULMONARY DISEASE W (ACUTE) EXACERBATION Status: Acute (3) Pleural effusion Code(s): J90 - PLEURAL EFFUSION, NOT ELSEWHERE CLASSIFIED Status: Acute (4) Metastatic lung cancer (metastasis from lung to other site) Code(s): C34.90 - MALIGNANT NEOPLASM OF UNSP PART OF UNSP BRONCHUS OR LUNG Status: Chronic - Plan * Acute on chronic respiratory failure- due to COPD exacerbation * Pulomary input appreciated, she has been transitioned to IV steroids, and continue dupnebs, and Dulera * Continue to monitor in the hospital overnight * Lung cancer- advanced
[2019-09-30] MEDS: Temazepam 15 MG CAP PO PRN (20:46)
[2019-09-30] MEDS: Citalopram 20 MG TAB PO SCH (20:46)
[2019-09-30] MEDS: Montelukast Sodium 10 mg Tablet PO SCH (20:47)
[2019-10-01] MEDS: methylPREDNISolone Sod Succ 40 MG VIAL IVP SCH ×5 (00:04→23:44)
[2019-10-01] MEDS: Mometasone 200 MCG/Formoterol 5 MCG 120 PUFF INHALER INH SCH ×2 (07:32→18:20)
--- NOTE | 2019-10-01 09:32 | PDOC.PALPN ---
Palliative Progress Note - Subjective O2 dependent, cheerful hopeful to get a shower and work with PT today. Continues to experience shortness of breath with conversation and increase in mild accessory muscle use. - Objective Vital Signs: Vital Signs - Most Recent Temp Pulse Resp BP Pulse Ox 98.3 F 80 18 119/58 L 93 L 10/01/19 08:00 10/01/19 08:00 10/01/19 08:00 10/01/19 08:00 10/01/19 08:00 - Physical Exam Constitutional: ill appearing HEENT: EOMI, moist MMs, sclera anicteric Respiratory: accessory muscle use, labored respirations Cardiovascular: RRR Gastrointestinal: continent Genitourinary: continent Musculoskeletal: pulses present Neurology: moves all 4 limbs Skin: cap refill <2 seconds, bruising, fragile Psychiatric: A&O x 3, normal mood - Assessment (1) Palliative care encounter Code(s): Z51.5 - ENCOUNTER FOR PALLIATIVE CARE Current Visit: Yes Status: Acute (2) Physical debility Code(s): R53.81 - OTHER MALAISE Current Visit: Yes Status: Acute (3) Acute and chronic respiratory failure Code(s): J96.20 - ACUTE AND CHR RESP FAILURE, UNSP W HYPOXIA OR HYPERCAPNIA Current Visit: Yes Status: Acute (4) Pleural effusion Code(s): J90 - PLEURAL EFFUSION, NOT ELSEWHERE CLASSIFIED Current Visit: No Status: Acute (5) Depression Code(s): F32.9 - MAJOR DEPRESSIVE DISORDER, SINGLE EPISODE, UNSPECIFIED Current Visit: No Status: Chronic (6) Metastatic lung cancer (metastasis from lung to other site) Code(s): C34.90 - MALIGNANT NEOPLASM OF UNSP PART OF UNSP BRONCHUS OR LUNG Current Visit: No Status: Chronic (7) Anxiety Code(s): F41.9 - ANXIETY DISORDER, UNSPECIFIED Current Visit: Yes Status: Acute - Plan Plan: Hopeful to return to home tomorrow. Education of use of medication for anxiety related to shortness of breath. Coughing when drinking coffee. Teaching in relation to reducing aspiration risk. Revisited Goal of Care and will have follow up conversation with patient and [id number] Kirsten. Visited with dietitian and reviewed notes, will re-educate with patient and Kirsten measures to encourage intake and supplement diet secondary to malnutrition Therapeutic listening and emotional support. [40] minutes spent on this encounter with >50% of the time in counseling and coordination of care. - ROS Constitutional: alert, weakness ENT: other (denies congestion, throat irritation) Respiratory: shortness of breath with extertion, other (intermittant cough related to aspiration) Cardiology: other (denies chest pain, palpitation) Gastrointestinal: other (denies nausea) Musculoskeletal: other (weakness lower ext, knee pain) Neurological: other (denies numbness, tingling) Skin: bruising Psychological: anxiety
[2019-10-01] MEDS: ALPRAZolam 0.5 MG TAB PO PRN (09:47)
[2019-10-01] MEDS: ALECTINIB HCL 150 MG PO SCH ×2 (09:48→20:02)
[2019-10-01] MEDS: Famotidine 20 MG TAB PO SCH ×2 (09:48→20:02)
[2019-10-01] MEDS: Enoxaparin Sodium 40 MG/0.4 ML SYRINGE SC SCH (09:49)
--- NOTE | 2019-10-01 09:59 | PDOC.PALPN ---
Palliative Progress Note - Objective Vital Signs: Vital Signs - Most Recent Temp Pulse Resp BP Pulse Ox 98.3 F 80 18 119/58 L 93 L 10/01/19 08:00 10/01/19 08:00 10/01/19 08:00 10/01/19 08:00 10/01/19 08:00 - Assessment (1) Palliative care encounter Code(s): Z51.5 - ENCOUNTER FOR PALLIATIVE CARE Current Visit: Yes Status: Acute (2) Physical debility Code(s): R53.81 - OTHER MALAISE Current Visit: Yes Status: Acute (3) Acute and chronic respiratory failure Code(s): J96.20 - ACUTE AND CHR RESP FAILURE, UNSP W HYPOXIA OR HYPERCAPNIA Current Visit: Yes Status: Acute (4) Pleural effusion Code(s): J90 - PLEURAL EFFUSION, NOT ELSEWHERE CLASSIFIED Current Visit: No Status: Acute (5) Depression Code(s): F32.9 - MAJOR DEPRESSIVE DISORDER, SINGLE EPISODE, UNSPECIFIED Current Visit: No Status: Chronic (6) Metastatic lung cancer (metastasis from lung to other site) Code(s): C34.90 - MALIGNANT NEOPLASM OF UNSP PART OF UNSP BRONCHUS OR LUNG Current Visit: No Status: Chronic (7) Anxiety Code(s): F41.9 - ANXIETY DISORDER, UNSPECIFIED Current Visit: Yes Status: Acute (8) Malnutrition Code(s): E46 - UNSPECIFIED PROTEIN-CALORIE MALNUTRITION Current Visit: Yes Status: Acute - Plan Plan: Malnutrition added as diagnosis as identified by dietition. Address in plan noted in previous note. [] minutes spent on this encounter with >50% of the time in counseling and coordination of care.
[2019-10-01] MEDS: Acetaminophen 325 MG TAB PO PRN (10:03)
--- NOTE | 2019-10-01 11:13 | PRG ---
DATE OF SERVICE: 10/01/2019 SUBJECTIVE: Ms. Nunez says she is feeling 100% better. Oximetry is 93 on 3 L. She is afebrile. Heart rate is 80, blood pressure 119/58. She probably needs to have oxygen turned up by 1 to 2 L when she exercises. She does not feel she is strong enough to go home. OBJECTIVE: LUNGS: Remarkable for decreased breath sounds in left base. HEART: Regular rhythm. ABDOMEN: Soft. IMPRESSION: 1. Chronic obstructive pulmonary disease exacerbation. She will need a slow steroid taper, starting at 40 mg when she leaves. I will plan on seeing her virtually in the office on Friday or Friday. 2. Anxiety. Alprazolam appears to be helping. 3. Non-small cell lung cancer. 4. Left true vocal cord paralysis clinically, leading to a lot of her dyspnea complaints. 5. Left pleural effusion, that radiographically appears to be stable by my review of serial CTs and chest x-rays. She has declined thoracentesis unless we could guarantee it would make her feel better. She is unwilling to undergo thoracentesis "just to see.". We will continue to follow while she is in the hospital. There is no lab today. Job ID: [id number]
--- NOTE | 2019-10-01 13:24 | PDOC.HOSPP ---
- Subjective Encounter Date: 10/01/19 Encounter Time: 13:23 Subjective: Ms. Nunez was seen today in follow-up of respiratory failure. She admits to feeling better. she just finished walking with PT. - Objective Vital Signs & Weight: Vital Signs (12 hours) Temp Pulse Resp BP Pulse Ox 10/01/19 10:29 87 16 88 L 10/01/19 08:00 98.3 F 80 18 119/58 L 93 L 10/01/19 07:36 88 L 10/01/19 07:35 75 16 88 L 10/01/19 07:32 75 16 88 L 10/01/19 02:16 19 L 12 92 L Weight Admit Weight 191 lb 6.992 oz Weight 191 lb 6.992 oz I&O: 09/30/19 10/01/19 10/02/19 06:59 06:59 06:59 Intake Total 821 1030 Output Total 300 400 Balance 521 630 Result Diagrams: 09/30/19 07:26 09/30/19 07:26 Hospitalist ROS - Medication Medications: Active Medications Generic Name Dose Route Start Last Admin Trade Name Freq PRN Reason Stop Dose Admin Acetaminophen 650 mg 09/28/19 19:36 10/01/19 10:03 Tylenol PO 650 mg Q4H PRN Administration Headache/Fever/Mild Pain (1-3) Albuterol/Ipratropium 3 ml 09/29/19 14:30 10/01/19 10:29 Duoneb NEB 3 ml [id number] KENNETH Administration Alprazolam 0.25 mg 09/28/19 21:07 10/01/19 09:47 Xanax PO 0.25 mg BIDPRN PRN Administration Anxiety Citalopram Hydrobromide 40 mg 09/28/19 21:00 09/30/19 20:46 Celexa PO 40 mg HS KENNETH Administration Enoxaparin Sodium 40 mg 09/29/19 09:00 10/01/19 09:49 Lovenox SC Not Given 09 KENNETH Famotidine 20 mg 09/28/19 21:00 10/01/19 09:48 Pepcid PO 20 mg BID KENNETH Administration Methylprednisolone Sodium Succinate 20 mg 09/29/19 18:00 10/01/19 12:48 Solu-Medrol IVP 20 mg Q6HR KENNETH Administration Mometasone Furoate/Formoterol Fumar 2 puff 09/29/19 06:30 10/01/19 07:32 Dulera 200 Mcg/5 Mcg Inhaler INH 2 puff BID-RT KENNETH Administration Montelukast Sodium 10 mg 09/28/19 21:00 09/30/19 20:47 Singulair PO 10 mg HS KENNETH Administration Alectinib Hcl [ 4 each 09/28/19 21:00 10/01/19 09:48 Alecensa] 150 Mg Cap PO 4 each BID KENNETH Administration Senna/Docusate Sodium 2 tab 09/28/19 19:36 09/30/19 08:06 Senokot S PO 1 tab BIDPRN PRN Administration Constipation Sodium Chloride 10 ml 09/29/19 23:28 10/01/19 05:32 Flush - Normal Saline IVF 10 ml PRN PRN Administration Saline Flush Temazepam 15 mg 09/28/19 19:36 09/30/19 20:46 Restoril PO 15 mg HSPRN PRN Administration Insomnia - Exam Eye: PERRL Heart: RRR, no murmur, no gallops, no rubs, normal peripheral pulses Respiratory: CTAB (with an occasional wheeze), no rales, no ronchi, normal chest expansion, no tachypnea, normal percussion Gastrointestinal: soft, non-tender, non-distended, normal bowel sounds, no palpable masses Hosp A/P (1) Acute and chronic respiratory failure Code(s): J96.20 - ACUTE AND CHR RESP FAILURE, UNSP W HYPOXIA OR HYPERCAPNIA Status: Acute (2) COPD exacerbation Code(s): J44.1 - CHRONIC OBSTRUCTIVE PULMONARY DISEASE W (ACUTE) EXACERBATION Status: Acute (3) Pleural effusion Code(s): J90 - PLEURAL EFFUSION, NOT ELSEWHERE CLASSIFIED Status: Acute (4) Metastatic lung cancer (metastasis from lung to other site) Code(s): C34.90 - MALIGNANT NEOPLASM OF UNSP PART OF UNSP BRONCHUS OR LUNG Status: Chronic - Plan * Acute on chronic respiratory failure- due to COPD exacerbation * She is slowly improving * Continue to monitor in the hospital overnight * Hopefully home tomorrow on a steroid dino as outlined by Pulmonary
[2019-10-01] MEDS: Montelukast Sodium 10 mg Tablet PO SCH (20:03)
[2019-10-01] MEDS: Citalopram 20 MG TAB PO SCH (20:03)
[2019-10-01] MEDS: Temazepam 15 MG CAP PO PRN (23:53)
[2019-10-02] MEDS: methylPREDNISolone Sod Succ 40 MG VIAL IVP SCH ×3 (05:43→18:13)
[2019-10-02] MEDS: Mometasone 200 MCG/Formoterol 5 MCG 120 PUFF INHALER INH SCH ×2 (07:43→18:44)
[2019-10-02 09:04] LABS: Bilirubin Negative (Negative); Blood, Urine Negative (Negative); Clarity Extra Turbid (Clear); Glucose, Urine (Dipstick) Normal (Negative); Leukocyte Negative Leu/uL (Negative); Nitrite Negative (Negative); Protein, Urine (Dipstick) Negative (Neg-Trace); RBC/HPF 0-3 HPF (0-3); Squamous Epithelial None Seen HPF (0-3); Urobilinogen Normal mg/dL (Less than 2); WBC/HPF None Seen HPF (0-3)
[2019-10-02] MEDS: Enoxaparin Sodium 40 MG/0.4 ML SYRINGE SC SCH (09:04)
[2019-10-02 09:05] LABS: Bacteria/HPF 1+ HPF (None Seen)
[2019-10-02] MEDS: Famotidine 20 MG TAB PO SCH ×2 (09:10→19:59)
[2019-10-02] MEDS: ALPRAZolam 0.5 MG TAB PO PRN (09:11)
[2019-10-02] MEDS: ALECTINIB HCL 150 MG PO SCH ×2 (09:12→20:00)
--- NOTE | 2019-10-02 11:59 | PDOC.HOSPP ---
- Subjective Encounter Date: 10/02/19 Encounter Time: 11:40 Subjective: f/u for resp failure, Non-small cell lung CA on chemotherapy. States slowly improving but still weak. Tolerating po intake and appetite improved. - Objective Vital Signs & Weight: Vital Signs (12 hours) Temp Pulse Resp BP Pulse Ox 10/02/19 10:41 65 16 10/02/19 08:27 98.3 F 79 18 112/56 L 97 10/02/19 08:00 98.3 F 79 18 97 10/02/19 07:43 92 L 10/02/19 07:42 75 16 92 L 10/02/19 02:42 74 14 96 Weight Admit Weight 191 lb 6.992 oz Weight 191 lb 6.992 oz I&O: 10/01/19 10/02/19 10/03/19 06:59 06:59 06:59 Intake Total 1030 755 180 Output Total 400 200 Balance 630 555 180 Result Diagrams: 09/30/19 07:26 09/30/19 07:26 Additional Labs: Microbiology 09/28/19 16:42 Nasopharyngeal swab Influenza Types A,B Direct EIA - Final 09/28/19 15:33 Venous blood - Left Arm Blood Culture - Preliminary NO GROWTH AT 48 HOURS 09/28/19 15:24 Venous blood - Left Hand Blood Culture - Preliminary NO GROWTH AT 48 HOURS Radiology Reviewed by me: Yes (CT chest - widely metastatic disease with liver involvement) Hospitalist ROS - Medication Medications: Active Medications Generic Name Dose Route Start Last Admin Trade Name Freq PRN Reason Stop Dose Admin Acetaminophen 650 mg 09/28/19 19:36 10/01/19 10:03 Tylenol PO 650 mg Q4H PRN Administration Headache/Fever/Mild Pain (1-3) Albuterol/Ipratropium 3 ml 09/29/19 14:30 10/02/19 10:41 Duoneb NEB 3 ml [id number] KENNETH Administration Alprazolam 0.25 mg 09/28/19 21:07 10/02/19 09:11 Xanax PO 0.25 mg BIDPRN PRN Administration Anxiety Citalopram Hydrobromide 40 mg 09/28/19 21:00 10/01/19 20:03 Celexa PO 40 mg HS KENNETH Administration Enoxaparin Sodium 40 mg 09/29/19 09:00 10/02/19 09:04 Lovenox SC Not Given 0900 KENNETH Famotidine 20 mg 09/28/19 21:00 10/02/19 09:10 Pepcid PO 20 mg BID KENNETH Administration Methylprednisolone Sodium Succinate 20 mg 09/29/19 18:00 10/02/19 05:43 Solu-Medrol IVP 20 mg Q6HR KENNETH Administration Mometasone Furoate/Formoterol Fumar 2 puff 09/29/19 06:30 10/02/19 07:43 Dulera 200 Mcg/5 Mcg Inhaler INH 2 puff BID-RT KENNETH Administration Montelukast Sodium 10 mg 09/28/19 21:00 10/01/19 20:03 Singulair PO 10 mg HS KENNETH Administration Alectinib Hcl [ 4 each 09/28/19 21:00 10/02/19 09:12 Alecensa] 150 Mg Cap PO 4 each BID KENNETH Administration Senna/Docusate Sodium 2 tab 09/28/19 19:36 09/30/19 08:06 Senokot S PO 1 tab BIDPRN PRN Administration Constipation Sodium Chloride 10 ml 09/29/19 23:28 10/01/19 05:32 Flush - Normal Saline IVF 10 ml PRN PRN Administration Saline Flush Temazepam 15 mg 09/28/19 19:36 10/01/19 23:53 Restoril PO 15 mg HSPRN PRN Administration Insomnia - Exam General Appearance: NAD, awake alert Eye: PERRL, anicteric sclera ENT: normocephalic atraumatic, no oropharyngeal lesions Neck: supple, symmetric, no JVD, no thyromegaly Heart: RRR, no murmur, no gallops, no rubs, normal peripheral pulses Heart - other findings: S1, S2 Respiratory - other findings: coarse sounds bilat, diminished in bases Gastrointestinal: soft, non-tender, non-distended, normal bowel sounds, no palpable masses Extremities: no cyanosis, no clubbing, no edema Skin: normal turgor, no lesions Neurological: cranial nerve grossly intact, no new deficit Musculoskeletal: normal tone, generalized weakness Psychiatric: A&O x 3 Hosp A/P (1) Acute and chronic respiratory failure Code(s): J96.20 - ACUTE AND CHR RESP FAILURE, UNSP W HYPOXIA OR HYPERCAPNIA Status: Acute Plan: Continue O2 supplementation, pulmonary supportive mgmt (2) COPD exacerbation Code(s): J44.1 - CHRONIC OBSTRUCTIVE PULMONARY DISEASE W (ACUTE) EXACERBATION Status: Acute Plan: Prednisone with slow taper for outpt (3) Metastatic lung cancer (metastasis from lung to other site) Code(s): C34.90 - MALIGNANT NEOPLASM OF UNSP PART OF UNSP BRONCHUS OR LUNG Status: Chronic Plan: Will resume outpt chemotherapy upon d/c (4) Pleural effusion Code(s): J90 - PLEURAL EFFUSION, NOT ELSEWHERE CLASSIFIED Status: Acute (5) Physical debility Code(s): R53.81 - OTHER MALAISE Status: Chronic Plan: PT for mobilization, ? 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
[2019-10-02] MEDS ORDERED: Lorazepam 2 MG/ML VIAL SLOW IVP SCH (16:45)
--- NOTE | 2019-10-02 16:59 | PRG ---
DATE OF SERVICE: 10/02/2019 SERVICE: Pulmonary Medicine. INTERVAL HISTORY: The patient is doing poorly from respiratory standpoint. She continues to have persistent dyspnea that limits her activity. She denies any current fevers, chills, nausea, or vomiting. Her cough is at baseline. She continues wheezing a touch. Otherwise, there has been no interval change to her condition. PHYSICAL EXAMINATION: VITAL SIGNS: Afebrile, Pulse 79, blood pressure 112/56, respirations 18, saturation 97% on 4 L nasal cannula. GENERAL: The patient is awake and alert, in no apparent distress. LUNGS: Decreased air entry at the left base. There is a prolonged expiratory phase. No crackles or wheezing appreciated. HEART: Normal rate, regular. ABDOMEN: Soft, nontender, nondistended. Bowel sounds are positive. MUSCULOSKELETAL: No cyanosis or clubbing. No pitting in the bilateral lower extremities. NEUROLOGIC: Grossly nonfocal. LABORATORY DATA: WBC 8.1, hemoglobin 13.0, and platelets 209,000. Basic metabolic profile is essentially unremarkable. Blood cultures x2 and influenza A and B are unremarkable. ASSESSMENT: 1. Acute on chronic hypoxic respiratory failure. 2. Chronic obstructive pulmonary disease with acute exacerbation. 3. Pleural effusion on the left. 4. [id number] lung cancer. 5. Left vocal cord paralysis. 6. Anxiety disorder. DISCUSSION AND PLAN: The patient is smoldering from a respiratory standpoint. At this point, we talked about the risks and benefits of pursuing thoracentesis. She has elected to proceed with this procedure. The nature of this fluid is currently unknown. It could be a trapped lung secondary to endobronchial disease resulting in loss of significant lung from obstructive process versus a malignant effusion versus something else. This will be for both diagnostic and possibly therapeutic purposes. Supportive care will otherwise be continued including antibiotics, steroids, and nebulized medications. Job ID: [id number] MTDD
[2019-10-02 18:10] LABS: Pleural Fluid, Protein 2.4 g/dL
[2019-10-02] MEDS: Acetaminophen 325 MG TAB PO PRN (18:13)
[2019-10-02 18:28] LABS: RBC Count-Automated (BF) 89757 /cumm; WBC/Nucleated-Auto (BF) 1520 uL
[2019-10-02 18:34] LABS: BF Color Red; Body Fluid Source Thoracentesis Fluid; Clarity Cloudy/Turbid (Clear); Tube # EDTA
[2019-10-02 18:45] LABS: BF Segmented Neutrophils 5 %; Cell Count Non Hematic 65 %; Lymphocytes 30 %
--- NOTE | 2019-10-02 18:47 | OP ---
DATE OF PROCEDURE: 10/02/2019 SERVICE: Pulmonary Medicine. PROCEDURE PERFORMED: Left-sided pleural drainage with catheter insertion under ultrasound guidance. CONSENT: Risks and benefits of the procedure were discussed with the patient. All questions were answered and alternative options explained. MEDICATIONS: 1% lidocaine without epinephrine, 8 mL. PREOPERATIVE DIAGNOSES: 1. Acute on chronic hypoxic respiratory failure. 2. Pleural effusion, not otherwise specified. POSTPROCEDURE DIAGNOSES: 1. Acute on chronic hypoxic respiratory failure. 2. Pleural effusion, not otherwise specified. DESCRIPTION OF PROCEDURE: Time-out was performed by the procedure team and patient. The patient was positively identified using name and date of . The procedure site was marked. Vital sign monitoring was accomplished by noninvasive hemodynamic monitoring, and pulse oximetry. In the seated position, the left posterior hemothorax was examined using ultrasound probe. The pleural fluid and diaphragm were easily identified. The skin was prepped and draped in sterile fashion and anesthetized with 1% lidocaine without epinephrine. A finder needle was inserted in the pleural space with return of serosanguineous pleural fluid. A pleural drainage catheter was inserted in the same location, and a total quantity of 1200 mL of pleural fluid was withdrawn by syringe pump technique. A sample was sent for analysis. Evacuation of fluid was terminated because the patient started having referred pain to her shoulder. At the end of the procedure, estimated pleural pressures, measured by manometry, was -17 cm of pleural fluid. The intact catheter was withdrawn on exhalation and a sterile dressing was applied. The patient maintained stable vital signs throughout the entire procedure. ESTIMATED BLOOD LOSS: Less than 1 mL. COMPLICATIONS: None. Job ID: [id number]
[2019-10-02] MEDS: Montelukast Sodium 10 mg Tablet PO SCH (20:00)
[2019-10-02] MEDS: Citalopram 20 MG TAB PO SCH (20:00)
[2019-10-03] MEDS: methylPREDNISolone Sod Succ 40 MG VIAL IVP SCH ×5 (01:07→23:36)
[2019-10-03 05:34] LABS: Band 5 % (5-11); Burr Cells SLIGHT = 2-5 cells (100X) (0-1/hpf); Hemoglobin 12.8 g/dL (12.0-16.0); Lymphocytes 8 % (21-51); MDiff Complete? YES; Mean Corpuscular HGB CONC 35.4 g/dL (32.0-36.0); Mean Corpuscular Hemoglobin 32.1 pg (27.0-31.0); Mean Corpuscular Volume 90.8 fL (78.0-98.0); Mean Platelet Volume 8.3 fL (7.4-10.4); Monocytes 6 % (0-10); Neutrophil 81 % (42-75); Platelet Count 228 thou/uL (130-400); RBC Distribution Width 14.6 % (11.5-14.5); Red Blood Cell (RBC) Count 3.97 mill/uL (4.20-5.40); White Blood Cell (WBC) Count 23.5 thou/uL (4.8-10.8)
[2019-10-03] MEDS: Mometasone 200 MCG/Formoterol 5 MCG 120 PUFF INHALER INH SCH ×2 (07:43→18:44)
--- NOTE | 2019-10-03 10:40 | PDOC.HOSPP ---
- Subjective Encounter Date: 10/03/19 Encounter Time: 10:20 Subjective: f/u for L pleural effusion in context of non-small cell lung CA with liver metastasis on po chemotherapy. s/p thoracentesis with 1.2L pleural fluid removed 10/02/19. Feels better overall and less dyspnea. Remains on 4L/min NC. - Objective Vital Signs & Weight: Vital Signs (12 hours) Pulse Resp BP Pulse Ox 10/03/19 07:12 82 16 96 10/03/19 07:00 96 10/03/19 00:13 74 16 107/59 L 99 Weight Admit Weight 191 lb 6.992 oz Weight 191 lb 6.992 oz I&O: 10/02/19 10/03/19 10/04/19 06:59 06:59 06:59 Intake Total 755 880 Output Total 200 1500 Balance 555 -620 Result Diagrams: 10/03/19 04:42 09/30/19 07:26 Additional Labs: Microbiology 09/28/19 16:42 Nasopharyngeal swab Influenza Types A,B Direct EIA - Final 09/28/19 15:33 Venous blood - Left Arm Blood Culture - Preliminary NO GROWTH AT 48 HOURS 09/28/19 15:24 Venous blood - Left Hand Blood Culture - Preliminary NO GROWTH AT 48 HOURS Hospitalist ROS - Medication Medications: Active Medications Generic Name Dose Route Start Last Admin Trade Name Freq PRN Reason Stop Dose Admin Acetaminophen 650 mg 09/28/19 19:36 10/02/19 18:13 Tylenol PO 650 mg Q4H PRN Administration Headache/Fever/Mild Pain (1-3) Albuterol/Ipratropium 3 ml 09/29/19 14:30 10/03/19 07:12 Duoneb NEB 3 ml [id number] KENNETH Administration Alprazolam 0.25 mg 09/28/19 21:07 10/02/19 09:11 Xanax PO 0.25 mg BIDPRN PRN Administration Anxiety Citalopram Hydrobromide 40 mg 09/28/19 21:00 10/02/19 20:00 Celexa PO 40 mg HS KENNETH Administration Enoxaparin Sodium 40 mg 09/29/19 09:00 10/02/19 09:04 Lovenox SC Not Given 0900 KENNETH Famotidine 20 mg 09/28/19 21:00 10/02/19 19:59 Pepcid PO 20 mg BID KENNETH Administration Methylprednisolone Sodium Succinate 20 mg 09/29/19 18:00 10/03/19 05:34 Solu-Medrol IVP 20 mg Q6HR KENNETH Administration Mometasone Furoate/Formoterol Fumar 2 puff 09/29/19 06:30 10/03/19 07:43 Dulera 200 Mcg/5 Mcg Inhaler INH 2 puff BID-RT KENNETH Administration Montelukast Sodium 10 mg 09/28/19 21:00 10/02/19 20:00 Singulair PO 10 mg HS KENNETH Administration Alectinib Hcl [ 4 each 09/28/19 21:00 10/02/19 20:00 Alecensa] 150 Mg Cap PO 4 each BID KENNETH Administration Senna/Docusate Sodium 2 tab 09/28/19 19:36 09/30/19 08:06 Senokot S PO 1 tab BIDPRN PRN Administration Constipation Sodium Chloride 10 ml 09/29/19 23:28 10/01/19 05:32 Flush - Normal Saline IVF 10 ml PRN PRN Administration Saline Flush Temazepam 15 mg 09/28/19 19:36 10/01/19 23:53 Restoril PO 15 mg HSPRN PRN Administration Insomnia - Exam General Appearance: NAD, awake alert Eye: PERRL, anicteric sclera ENT: normocephalic atraumatic, no oropharyngeal lesions Neck: supple, symmetric, no JVD, no thyromegaly Heart: RRR, no gallops, no rubs, normal peripheral pulses Heart - other findings: S1, S2 Respiratory - other findings: diminished in L base, scattered rhonchi Gastrointestinal: soft, non-tender, non-distended, normal bowel sounds Extremities: no cyanosis, no clubbing, no edema Skin: normal turgor, no lesions Neurological: cranial nerve grossly intact, no new deficit Musculoskeletal: normal tone, normal strength, no muscle wasting Psychiatric: normal affect, A&O x 3 Hosp A/P (1) Acute and chronic respiratory failure Code(s): J96.20 - ACUTE AND CHR RESP FAILURE, UNSP W HYPOXIA OR HYPERCAPNIA Status: Acute Plan: Continue O2 supplementation, Solumedrol transitioning to Prednisone for d/c (2) COPD exacerbation Code(s): J44.1 - CHRONIC OBSTRUCTIVE PULMONARY DISEASE W (ACUTE) EXACERBATION Status: Acute Plan: See above in #1 (3) Metastatic lung cancer (metastasis from lung to other site) Code(s): C34.90 - MALIGNANT NEOPLASM OF UNSP PART OF UNSP BRONCHUS OR LUNG Status: Chronic Plan: Continue po chemotherapy per medical oncology recommendations (4) Pleural effusion Code(s): J90 - PLEURAL EFFUSION, NOT ELSEWHERE CLASSIFIED Status: Acute Plan: s/p L thoracentesis with 1.2L removed, overall symptomatically improved, initial cx negative (5) Physical debility Code(s): R53.81 - OTHER MALAISE Status: Chronic - Plan 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
[2019-10-03] MEDS: Enoxaparin Sodium 40 MG/0.4 ML SYRINGE SC SCH (10:42)
[2019-10-03] MEDS: ALECTINIB HCL 150 MG PO SCH ×2 (10:43→20:03)
[2019-10-03] MEDS: Famotidine 20 MG TAB PO SCH ×2 (10:43→20:04)
--- NOTE | 2019-10-03 16:05 | PRG ---
DATE OF SERVICE: 10/03/2019 SERVICE: Pulmonary Medicine. INTERVAL HISTORY: The patient reports that the thoracentesis yesterday provided some modest improvement in shortness of breath/dyspnea on exertion. She indicates that when she moves about the bed anymore, she does not feel like she has to pant and recover. Otherwise, there has been no interval change to her condition. She slept fairly well last night. She has no other reports of fevers, chills, or cough. PHYSICAL EXAMINATION: VITAL SIGNS: Afebrile, pulse is 78, blood pressure 117/58, respirations 18, saturation 95% on 2 L nasal cannula. GENERAL: The patient is awake and alert, in no apparent distress. LUNGS: Decent air entry. There is improved air entry at the left base. No prolonged expiratory phase or wheezing is appreciated. HEART: Normal rate and regular. ABDOMEN: Soft, nontender, nondistended. Bowel sounds are positive. MUSCULOSKELETAL: No cyanosis or clubbing. No pitting in the bilateral lower extremities. NEUROLOGIC: Grossly nonfocal. LABORATORY DATA: WBC 23.5, hemoglobin 12.8, platelets 228,000. Neutrophils are 81% on top of 5% bands. Basic metabolic profile is unremarkable. Procalcitonin is completely negative. Body fluid is significant for a normal pH, an elevated LDH, and total protein that is a little low. The predominant cell type is nonhematologic cells, and the segmented neutrophils are quite low. Body fluid culture is negative to date. Urine culture, influenza A and B, and blood cultures x2 are negative. ASSESSMENT: 1. [id number] hypoxic respiratory failure. 2. Chronic obstructive pulmonary disease with acute exacerbation, improving. 3. Pleural effusion on the left, not otherwise specified, status post thoracentesis demonstrating an exudate. 4. Non-small cell lung cancer. 5. Left vocal cord paralysis. 6. Anxiety disorder. DISCUSSION AND PLAN: Characteristics of the fluid are consistent with an exudate. The predominant cell type is nonhematologic. Pathology is currently pending. She got some modest benefit from this, but nothing profound enough to pursue PleurX catheter based on her assessment. Pulmonary will continue to follow. Dr. Strickland will resume care in the morning. Job ID: [id number]
[2019-10-03] MEDS: Senokot S 8.6-50 MG TAB PO PRN (17:56)
[2019-10-03] MEDS: Citalopram 20 MG TAB PO SCH (20:03)
[2019-10-03] MEDS: Acetaminophen 325 MG TAB PO PRN (20:04)
[2019-10-03] MEDS: Montelukast Sodium 10 mg Tablet PO SCH (20:04)
[2019-10-04] MEDS: methylPREDNISolone Sod Succ 40 MG VIAL IVP SCH ×2 (05:17→13:25)
[2019-10-04 06:49] LABS: Hemoglobin 13.1 g/dL (12.0-16.0); Mean Corpuscular HGB CONC 34.7 g/dL (32.0-36.0); Mean Corpuscular Hemoglobin 31.2 pg (27.0-31.0); Mean Corpuscular Volume 89.9 fL (78.0-98.0); Mean Platelet Volume 8.9 fL (7.4-10.4); Platelet Count 220 thou/uL (130-400); RBC Distribution Width 14.6 % (11.5-14.5); Red Blood Cell (RBC) Count 4.18 mill/uL (4.20-5.40); White Blood Cell (WBC) Count 16.1 thou/uL (4.8-10.8)
[2019-10-04] MEDS: Mometasone 200 MCG/Formoterol 5 MCG 120 PUFF INHALER INH SCH (06:58)
[2019-10-04 07:10] LABS: Band 3 % (5-11); Lymphocytes 4 % (21-51); Monocytes 2 % (0-10); Neutrophil 87 % (42-75); Reactive Lymphocytes 4 % (0-10)
[2019-10-04 07:11] LABS: Burr Cells SLIGHT = 2-5 cells (100X) (0-1/hpf)
[2019-10-04 07:14] LABS: Platelet Morphology Comment Appears Adequate
[2019-10-04 07:15] LABS: MDiff Complete? YES; Schistocytes SLIGHT = 2-5 cells (100X) (0-1/hpf)
[2019-10-04 07:53] VITALS: BP 111/56; TEMP 98
[2019-10-04] MEDS ORDERED: Magnesium Citrate 300 ML BOT PO SCH (08:00)
[2019-10-04] MEDS: ALECTINIB HCL 150 MG PO SCH (08:47)
[2019-10-04] MEDS: Famotidine 20 MG TAB PO SCH (08:47)
[2019-10-04] MEDS: Enoxaparin Sodium 40 MG/0.4 ML SYRINGE SC SCH (08:51)
--- NOTE | 2019-10-04 09:10 | DIS ---
DATE OF ADMISSION: 09/29/2019 DATE OF DISCHARGE: 10/04/2019 DISCHARGE DIAGNOSES: 1. Acute on chronic hypoxic hypercapnic respiratory failure, multifactorial, improved. 2. Chronic obstructive pulmonary disease exacerbation, improved. 3. Non-small cell lung carcinoma with metastases. 4. Malignant left pleural effusion, status post thoracentesis. 5. Physical deconditioning. CONSULTATIONS: 1. Dr. Gale and Dr. Strickland with Pulmonology Service. 2. Palliative Care Service. PERTINENT LABORATORY AND X-RAY FINDINGS: Lactic acid level ranged between 1.9 to 2.8. Total bilirubin 1.6, AST 67, ALT 88, and alkaline phosphatase 130. Procalcitonin level 0.05. CBC showed a white blood cell count ranging between 8.1 to 23.5. Blood cultures x2 dated 09/28/2019, showed no growth at 5 days. Influenza A and B antigen dated 09/28/2019, negative. Urine culture dated 10/02/2019, pending. Pleural fluid culture dated 10/02/2019, showed no growth at 12 hours. Pleural fluid, acid-fast bacilli smear negative. AFB culture pending. Portable chest x-ray dated 09/28/2019, showed left upper lobe neoplasm with associated left pleural effusion. CT angiogram of the chest dated 09/28/2019, showed no evidence for pulmonary embolus. Widespread metastatic process of the chest and liver. Left pleural effusion with associated compressive atelectasis of the left lung. HOSPITAL COURSE: The patient was initially admitted after presenting with increased shortness of breath and hypoxemia in the context of non-small cell metastatic carcinoma on current oral immunotherapy. The patient was noted with increasing oxygen requirements above baseline at 4 L/minute by nasal cannula. The patient initially received bronchodilator therapy in addition to IV Solu-Medrol and continued on oxygen supplementation. The patient received general pulmonary supportive management throughout the hospital course with minimal improvement. The patient remained dyspneic with minimal exertion and was evaluated by the Pulmonology Service. The patient ultimately underwent a thoracentesis of the left pleural effusion with 1.2 L removed on 10/02/2019. The patient did clinically improve and was less symptomatic with ambulation and minimal movement and activity. Initial pleural fluid culture shows no evidence of infectious process. The patient continued on IV Solu-Medrol and bronchodilator therapy without complication. Overall, the patient did remain clinically stable during the hospital course with stable vital signs at the time of discharge. I have examined the patient and discussed followup instructions. The patient verbalized understanding and in agreement and ready for discharge on 10/04/2019. DISCHARGE MEDICATIONS: 1. Alecensa 600 mg p.o. b.i.d.. 2. Citalopram 40 mg p.o. at bedtime. 3. Singulair 10 mg p.o. at bedtime. 4. Restoril 15 mg p.o. at bedtime p.r.n. 5. Xanax 0.25 mg p.o. b.i.d. p.r.n. 6. DuoNeb 3 mL nebulized q.6 hours p.r.n. 7. Prednisone 20 mg take 2 tablets p.o. daily x3 days, followed by 1 tablet p.o. daily x3 days, followed by half a tablet p.o. daily x3 days. 8. Senokot one tablet p.o. b.i.d. p.r.n. 9. Ventolin HFA 2 puffs inhaled q.4 hours p.r.n. FOLLOWUP: The patient may follow up with her primary oncologist, Dr. Etienne. The patient will follow up with Dr. Scot Strickland with Pulmonology Service. CONDITION ON DISCHARGE: Stable. ACTIVITY: Ad-tri. DIET: Regular. CODE STATUS: Full. DISPOSITION: To home with [facility] including physical therapy on 10/04/2019. TIME SPENT: Total time in preparing and coordinating discharge, 32 minutes. Job ID: [id number]
--- NOTE | 2019-10-05 07:20 | PRG ---
DATE OF SERVICE: 10/04/2019 Lanette Nunez has been discharged. I have changed her prednisone dosing to 40 mg for 4 days and then 20 mg until she sees . I think leaving her on a low dose of prednisone at this point is reasonable considering how she bounced back after her last discharge. She is out of medication for her nebulizer at home, so I have written a prescription for albuterol and ipratropium to use every 4 hours. There is exam findings. She has a nebulizer and oxygen set up at home. I will see her in the office. Job ID: [id number]
== END 2019-10-04 17:30 | disposition home or self-care (01) | DRG 180 ==
LOC: ERS 15:13 → ONC 17:53 → OBSVTOIN 09-29 14:11
PROVIDERS: ADMIT Emergency Medicine; ATTEND Emergency Medicine
PROC: 0W993ZZ Drainage of Right Pleural Cavity, Percutaneous Approach (ICD-10-PCS; principal; 2019-10-02)
DX: C34.12 Malignant neoplasm of upper lobe, left bronchus or lung (principal); J96.21 Acute and chronic respiratory failure with hypoxia; J96.22 Acute and chronic respiratory failure with hypercapnia; J44.1 Chronic obstructive pulmonary disease with (acute) exacerbation; J91.0 Malignant pleural effusion; E46 Unspecified protein-calorie malnutrition; C78.7 Secondary malignant neoplasm of liver and intrahepatic bile duct; F32.9 Major depressive disorder, single episode, unspecified; F41.9 Anxiety disorder, unspecified; J38.01 Paralysis of vocal cords and larynx, unilateral; Z88.0 Allergy status to penicillin; Z79.899 Other long term (current) drug therapy; Z79.52 Long term (current) use of systemic steroids; Z79.51 Long term (current) use of inhaled steroids; Z87.891 Personal history of nicotine dependence; Z68.31 Body mass index [BMI] 31.0-31.9, adult
CPT/HCPCS: 36415; 71045; 71275; 80048; 80053; 81001; 81003; 82550; 82945; 83605; 83615; 83880; 83986; 84145; 84157; 85007; 85025; 85027; 85060; 87040; 87070; 87086; 87116; 87205; 87206; 87804; 88112; 88305; 88341; 88342; 89051; 93005; 94640; 94760; 96360; 96361; 96374; J1650; J2060; J2920; J7512; J7620; Q9967